=== PATIENT | female | born 1930 | race Caucasian/White ===

== ENCOUNTER 2017-04-26 15:32 | Inpatient (IN) | payer OTHER, BC ==
[~2017-04-26] VITALS: Ht 157.5 cm; Wt 58.6 kg
[~2017-04-26 15:32] MED LIST: ALBUAER2 INH; ATOR-24 PO; FLNIN NAE; FRRS300 PO; GLIP-199 PO; LATA0.5S OPR; LSX20 PO; METF500T5 PO; MULTCHW PO; OMEP20CA9 OR; REPA0.5T PO; TMPOPS15 OPB
[2017-04-26] MEDS ORDERED: MoRPHine SULFATE 10 MG/ML CARP/VIAL IV STA ×2 (15:44→16:28)
[2017-04-26 16:46] LABS: CALCIUM 9.2 mg/dl (8.5-10.1); CREATININE 0.68 mg/dl (0.60-1.20); POTASSIUM 4.3 mmol/L (3.5-5.1)
[2017-04-26 16:48] LABS: PROTHROMBIN TIME (PATIENT) 10.8 SECONDS (9.0-12.0)
--- NOTE | 2017-04-26 16:59 | DIAGNOSTIC IMAGING REPORT ---
LEFT PELVIS/UNILATERAL HIP 2-3VIEWS CLINICAL HISTORY: Left hip pain. Fall. COMPARISON STUDY: None. FINDINGS: Comminuted intertrochanteric fracture within the left hip. This demonstrates mild superior displacement. No dislocation. The visualized pelvic bones are intact. The bones are osteopenic. The lesser trochanter fragment is distracted by approximately 9 mm. There is also 1.2 cm of posterior displacement. IMPRESSION: Comminuted and displaced left hip intertrochanteric fracture. Electronically signed by: Juventino Kuo M.D. 04/26/2017 4:58 PM Dictated Date/Time: 04/26/2017 4:57 PM
--- NOTE | 2017-04-26 17:03 | DIAGNOSTIC IMAGING REPORT ---
CHEST 1 VW FRONT-NOT PORTABLE HISTORY: Left hip fracture. Preop. Fall. COMPARISON: Chest 08/22/2016. FINDINGS: The heart is stable in size. Diffuse interstitial thickening is again noted. This has progressed. Left suprahilar density is likely due to the overlapping first rib. Small right peripheral midlung zone density and right apical pleural thickening have progressed. This is likely chronic. Old, healed left-sided rib fractures. There may be trace bilateral pleural effusions. IMPRESSION: 1. Diffuse interstitial thickening which has progressed. There are trace bilateral pleural effusions. This may represent mild congestive change on the background of chronic interstitial lung disease. 2. Left suprahilar density is likely due to the overlapping first rib. 3. Small focal density within the periphery of the right midlung zone may represent an area of scarring or pleural fluid. Electronically signed by: Juventino Kuo M.D. 04/26/2017 5:01 PM Dictated Date/Time: 04/26/2017 4:58 PM
[2017-04-26 17:04] LABS: HEMATOCRIT 40.1 % (37-47); MEAN CELL VOLUME 94.1 fL (80-100); MEAN CORPUSCULAR HEMOGLOBIN 32.6 pg (25-34); MEAN CORPUSCULAR HGB CONC 34.7 g/dl (32-36); RED BLOOD COUNT 4.26 M/uL (4.2-5.4)
[2017-04-26 17:07] LABS: BASO % 0.1 %; BASO ABS # 0.01 K/uL (0-0.2); COMPLETE YES; EOS % 1.6 %; IG% 0.4 %; LYMPH % 17.7 %; MEAN PLATELET VOLUME 10.8 fL (7.4-10.4); MONO % 6.7 %; NEUT % 73.5 %; PLATELET COUNT 108 K/uL (130-400); PLT ESTIMATE DECREASED
--- NOTE | 2017-04-26 17:09 | DIAGNOSTIC IMAGING REPORT ---
HEAD CT NONCONTRAST CT DOSE: 1577.26 mGycm HISTORY: fall hit head TECHNIQUE: Multiaxial CT images of the head were performed without the use of intravenous contrast. Automated exposure control was utilized for this study. A dose lowering technique was utilized adhering to the principles of ALARA. Comparison: None. Findings: The paranasal sinuses and mastoid air cells are clear. The calvarium and skull base are intact. There is no mass, hematoma, midline shift, acute infarct. White matter hypodensity is nonspecific but suggestive of microvascular ischemic change. The ventricles and sulci demonstrate mild age-related involutional changes. Impression: No acute intracranial abnormality. Electronically signed by: Juventino Kuo M.D. 04/26/2017 5:08 PM Dictated Date/Time: 04/26/2017 5:01 PM
[2017-04-26 17:37] LABS: URINE APPEARANCE CLEAR (CLEAR); URINE BILIRUBIN NEG (NEG); URINE COLOR YELLOW; URINE EPITHELIAL CELL AUTO >30 /lpf (0-5); URINE NITRITE POS (NEG); URINE PH 8.5 (4.5-7.5); URINE SPECIFIC GRAVITY 1.014 (1.000-1.030); UROBILINOGEN NEG (NEG); ZZURINE CULT IF INDIC CATH YES
[2017-04-26] MEDS ORDERED: ACET-749 PO (17:37)
[2017-04-26] MEDS ORDERED: LCTX PO (17:37)
[2017-04-26] MEDS ORDERED: REPA1TAB42 PO (17:37)
--- NOTE | 2017-04-26 17:44 | EMERGENCY ROOM VISIT NOTE ---
History Report prepared by Patrick: Stephen Victoria Under the Supervision of: Dr. Raymond Owens D.O. First contact with patient: 15:37 Stated Complaint: HIP PAIN History of Present Illness The patient is a 86 year old female who presents to the Emergency Room with complaints of constant left hip pain s/p fall occurring just prior to arrival. She states that she fell while cooking. She states that she was reaching for her cupboard when she lost her balance and fell onto her left side. The patient denies any chest pain, back pain, or abdominal pain. She did not hit her head or lose consciousness during the fall. Her pain is worsened with movement. Patient has had surgery by [facility] before. Patient has no other complaints. Source of History: patient Onset: Just prior to arrival Position: pelvis (left hip) Timing: constant Modifying Factors (Worsening): movement Associated Symptoms: No LOC, No chest pain, No abdominal pain, No back pain Review of Systems See HPI for pertinent positives & negatives. A total of 10 systems reviewed and were otherwise negative. Past Medical & Surgical Medical Problems: (1) Anemia (2) Dyslipidemia (3) GERD (gastroesophageal reflux disease) (4) History of pneumonia (5) HTN (hypertension) (6) Pneumonia Surgical Problems: (1) H/O carotid endarterectomy (2) H/O cataract removal with insertion of prosthetic lens (3) History of hysterectomy Family History No pertinent family history stated. Social History Smoking Status: Former Smoker Drug Use: none Marital Status: Occupation Status: retired Current/Historical Medications Scheduled Albuterol (Ventolin), 2 PUFFS INH PRN Atorvastatin (Lipitor), 40 MG PO DAILY Ferrous Sulfate (Ferrous Sulfate), 325 MG PO BIDM Furosemide (Furosemide), 20 MG PO QAM Glipizide (Glipizide Er), 20 MG PO DAILY Lactobacillus Acidophilus (Lactinex), 1 TAB PO AC Latanoprost (Xalatan 0.005% Oph Cherrie), 1 DROPS OPR HS Metformin Hcl Er (Glucophage Er), 1,000 MG PO DAILY Multiple Vitamins W/ Minerals (Centrum Silver), 1 TAB PO DAILY Omeprazole (Prilosec), 20 MG OR DAILYBB Repaglinide (Prandin), 1 MG PO AC Scheduled PRN Acetaminophen/Codeine (Tylenol W/Codeine #3), 1 TAB PO Q8 PRN for Pain Allergies Coded Allergies: Aspirin (Verified Allergy, Unknown, THROAT SWELLS, 04/26/17) Physical Exam Vital Signs Date Time Temp Pulse Resp B/P (MAP) Pulse Ox O2 Delivery O2 Flow Rate FiO2 04/26/17 17:16 87 17 176/80 95 Nasal Cannula 2.0 04/26/17 16:04 92 04/26/17 15:42 93 18 188/100 91 Room Air Physical Exam GENERAL: sitting up in bed, holding left hip, moderate distress. HEAD: Normocephalic, atraumatic. EYE EXAM: normal conjunctiva OROPHARYNX: no exudate, no erythema, lips, buccal mucosa, and tongue normal and mucous membranes are moist NECK: supple, no nuchal rigidity, no adenopathy, non-tender LUNGS: Clear to auscultation. Normal chest wall mechanics HEART: no murmurs, S1 normal and S2 normal ABDOMEN: abdomen soft, non-tender, normo-active bowel sounds, no masses, no rebound or guarding. BACK: Back is symmetrical on inspection and there is no deformity, no midline tenderness, no CVA tenderness. SKIN: no rashes and no bruising UPPER EXTREMITIES: upper extremities are grossly normal. LOWER EXTREMITIES: LLE shortened and internally rotated with significant pain at the left hip. DP is 2 out of 4. Gross sensation intact. Able to wiggle toes. Full active and passive range of motion of left hip, knee, ankle. NEURO EXAM: Normal sensorium, cranial nerves II-XII grossly intact, normal speech, no gross weakness of arms Medical Decision & Procedures ER Provider Diagnostic Interpretation: Radiology results as stated below per my review and the radiologist's interpretation: LEFT PELVIS/UNILATERAL HIP 2-3VIEWS FINDINGS: Comminuted intertrochanteric fracture within the left hip. This demonstrates mild superior displacement. No dislocation. The visualized pelvic bones are intact. The bones are osteopenic. The lesser trochanter fragment is distracted by approximately 9 mm. There is also 1.2 cm of posterior displacement. IMPRESSION: Comminuted and displaced left hip intertrochanteric fracture. Electronically signed by: Juventino Kuo M.D. CHEST 1 VW FRONT-NOT PORTABLE FINDINGS: The heart is stable in size. Diffuse interstitial thickening is again noted. This has progressed. Left suprahilar density is likely due to the overlapping first rib. Small right peripheral midlung zone density and right apical pleural thickening have progressed. This is likely chronic. Old, healed left-sided rib fractures. There may be trace bilateral pleural effusions. IMPRESSION: 1. Diffuse interstitial thickening which has progressed. There are trace bilateral pleural effusions. This may represent mild congestive change on the background of chronic interstitial lung disease. 2. Left suprahilar density is likely due to the overlapping first rib. 3. Small focal density within the periphery of the right midlung zone may represent an area of scarring or pleural fluid. Electronically signed by: Juventino Kuo M.D. HEAD CT NONCONTRAST Findings: The paranasal sinuses and mastoid air cells are clear. The calvarium and skull base are intact. There is no mass, hematoma, midline shift, acute infarct. White matter hypodensity is nonspecific but suggestive of microvascular ischemic change. The ventricles and sulci demonstrate mild age-related involutional changes. Impression: No acute intracranial abnormality. Electronically signed by: Juventino Kuo M.D. Laboratory Results 04/26/17 16:11 Red Blood Count 4.26, Mean Corpuscular Volume 94.1, Mean Corpuscular Hemoglobin 32.6, Mean Corpuscular Hemoglobin Concent 34.7, Mean Platelet Volume 10.8, Neutrophils (%) (Auto) 73.5, Lymphocytes (%) (Auto) 17.7, Monocytes (%) (Auto) 6.7, Eosinophils (%) (Auto) 1.6, Basophils (%) (Auto) 0.1, Neutrophils # (Auto) 5.80, Lymphocytes # (Auto) 1.40, Monocytes # (Auto) 0.53, Eosinophils # (Auto) 0.13, Basophils # (Auto) 0.01 04/26/17 16:11 Test 04/26/17 16:11 04/26/17 17:15 White Blood Count 7.90 K/uL (4.8-10.8) Red Blood Count 4.26 M/uL (4.2-5.4) Hemoglobin 13.9 g/dL (12.0-16.0) Hematocrit 40.1 % (37-47) Mean Corpuscular Volume 94.1 fL (80-100) Mean Corpuscular Hemoglobin 32.6 pg (25-34) Mean Corpuscular Hemoglobin Concent 34.7 g/dl (32-36) Platelet Count 108 K/uL (130-400) Mean Platelet Volume 10.8 fL (7.4-10.4) Neutrophils (%) (Auto) 73.5 % Lymphocytes (%) (Auto) 17.7 % Monocytes (%) (Auto) 6.7 % Eosinophils (%) (Auto) 1.6 % Basophils (%) (Auto) 0.1 % Neutrophils # (Auto) 5.80 K/uL (1.4-6.5) Lymphocytes # (Auto) 1.40 K/uL (1.2-3.4) Monocytes # (Auto) 0.53 K/uL (0.11-0.59) Eosinophils # (Auto) 0.13 K/uL (0-0.5) Basophils # (Auto) 0.01 K/uL (0-0.2) RDW Standard Deviation 42.6 fL (36.4-46.3) RDW Coefficient of Variation 12.5 % (11.5-14.5) Immature Granulocyte % (Auto) 0.4 % Immature Granulocyte # (Auto) 0.03 K/uL (0.00-0.02) Platelet Estimate DECREASED Prothrombin Time 10.8 SECONDS (9.0-12.0) Prothromb Time International Ratio 1.0 (0.9-1.1) Activated Partial Thromboplast Time 26.2 SECONDS (21.0-31.0) Partial Thromboplastin Ratio 1.0 Anion Gap 8.0 mmol/L (3-11) Est Creatinine Clear Calc Drug Dose 47.9 ml/min Estimated GFR () 92.4 Estimated GFR (Non- 79.8 BUN/Creatinine Ratio 10.0 (10-20) Calcium Level 9.2 mg/dl (8.5-10.1) Laboratory results per my review. Medications Administered Medications (Trade) Dose Ordered Sig/Bill Route Start Time Stop Time Status Last Admin Dose Admin Morphine Sulfate (MoRPHine SULFATE INJ) 6 mg NOW STAT IV 04/26/17 15:44 04/26/17 15:46 DC 04/26/17 15:54 6 MG Morphine Sulfate (MoRPHine SULFATE INJ) 6 mg NOW STAT IV 04/26/17 16:28 04/26/17 16:29 DC 04/26/17 16:28 6 MG ECG Indication: other (fall) Rate (beats per minute): 87 Rhythm: sinus rhythm Findings: Q waves (Septal), no ectopy, other (Normal axis) ED Course ED COURSE: Vital signs were reviewed and showed hypertension and borderline tachycardia. The patients medical record was reviewed The above diagnostic studies were performed and reviewed. ED treatments and interventions as stated above. 1539: The patient was evaluated in room A11A. A complete history and physical examination was performed. 1544: Ordered Morphine Sulfate 6 mg IV. 1628: I reassessed the patient. She is still having pain. Ordered Morphine Sulfate 6 mg IV. 1702: Upon reevaluation, the patient is resting. I discussed my findings with the patient and she understands and agrees with the treatment plan. Based on the patients age, coexisting illnesses, exam and lab findings the decision to treat as an inpatient was made. The patient remained stable while under my care. The patient will be evaluated for further management. Medical Decision Differential diagnoses include major intracranial, cervical, spinal, thoracic, abdominal, pelvic and neurologic injury. Fracture, contusion, sprain, strain, laceration, abrasions included as well. Patient is an 86-year-old female who presents the ER status post mechanical fall. Patient notes she fell onto her left hip. She did not lose consciousness. No other complaints. She has an obvious deformity. X-ray shows an intratrochanteric fracture. She was neurologically intact. Discussed with Dr. Coombs from [facility] [place]. Updated the patient at bedside. CT head was negative. Chest x-ray shows congestive changes. CBC along with BMP was unremarkable. Discussed case with internal medicine inpatient will be admitted. Medication Reconcilliation Current Medication List: was personally reviewed by me Blood Pressure Screening Patient's blood pressure: Elevated blood pressure Blood pressure disposition: Referred to PCP Consults Time Called: 1655 Consulting Physician: Monae Hudson Returned Call: 1701 I reviewed the patient's case with Monae Sánchez. Florence will evaluate the patient for further management. Additional Consults: Consulted Physician: Dr. Coombs Additional Comments: NPO for OR tomorrw Impression Primary Impression: Hip fracture Additional Impression: Fall Scribe Attestation The scribe's documentation has been prepared under my direction and personally reviewed by me in its entirety. I confirm that the note above accurately reflects all work, treatment, procedures, and medical decision making performed by me. Departure Information Dispostion Being Evaluated By Hospitalist Referrals Royal Noel D.O. (PCP) Problem Qualifiers Primary Impression: Hip fracture Encounter type: initial encounter Fracture type: closed Laterality: left Qualified Codes: S72.002A - Fracture of unspecified part of neck of left femur , initial encounter for closed fracture Additional Impression: Fall Encounter type: initial encounter Qualified Codes: W19.XXXA - Unspecified fall, initial encounter
[2017-04-26] MEDS ORDERED: BISACODYL 10 MG SUPP PR PRN (18:00)
[2017-04-26] MEDS ORDERED: NALOXONE HCL 0.4 MG/1 ML VIAL/CARP IV PRN (18:00)
[2017-04-26] MEDS ORDERED: ONDANSETRON INJ 2 MG/ML 2 ML VIAL IV PRN (18:00)
[2017-04-26] MEDS ORDERED: SOD PHOSPHATE/SOD BIPHOSPHATE ENEMA 132 ML BTL PR PRN (18:00)
[2017-04-26] MEDS ORDERED: POLYETHYLENE (MIRALAX) 17 GM PACK PO PRN (18:00)
[2017-04-26] MEDS ORDERED: MAGNESIUM HYDROXIDE SUSP 30 ML UDC PO PRN (18:00)
[2017-04-26] MEDS ORDERED: HYDROmorphone INJ 0.5 MG/0.5 ML SYR IV PRN (18:00)
[2017-04-26] MEDS ORDERED: MoRPHine SULFATE 2 MG/ML CARP IV PRN (18:00)
[2017-04-26] MEDS ORDERED: MoRPHine SULFATE 4 MG/ML 1 ML CARP\\VIAL IV PRN (18:00)
[2017-04-26 18:14] LABS: MANUAL MICROSCOPIC REQUIRED? NO; REVIEW REQ? NO; SULFASALICYLIC ACID POS (NEG)
[2017-04-26] MEDS ORDERED: HydrALAZINE 10 MG TAB PO PRN (18:15)
[2017-04-26] MEDS ORDERED: GLUCOSE 10 TABS/TUBE PO PRN (18:15)
[2017-04-26] MEDS ORDERED: GLUCAGON FOR INJ 1 MG VIAL SQ PRN (18:15)
[2017-04-26] MEDS ORDERED: GLUCOSE 40% GEL 15 GM TUBE PO PRN (18:15)
[2017-04-26] MEDS ORDERED: DEXTROSE 50% 50 ML SYR IV PRN (18:15)
[2017-04-26] MEDS ORDERED: ALBUTEROL HFA 8 GM INHALER INH PRN (18:15)
--- NOTE | 2017-04-26 18:16 | History and Physical ---
History & Physical Date & Time of Service: Apr 26, 2017 at 18:10 Chief Complaint: Hip Pain Primary Care Physician: Royal Noel D.O. History of Present Illness Source: patient, family This is an 86yo female with a PMH of HTN, DM II, MARIE and osteoarthritis who presents with L hip pain after a fall this afternoon. Patient reached for a cupboard while cooking, lost her balance and fell onto her left side. Denies hitting her head or LOC. Some neighbors overheard the fall and called EMS. Patient initially had severe pain but after being given morphine in the ED, pain is a 2/10 on the pain scale. Denies any lightheadedness, confusion, CP, SOB , nausea/vomiting, numbness or tingling in lower extremities. Patient lives alone and can perform ADLs independently. Ambulates with a cane and walker. Past Medical/Surgical History Medical Problems: (1) Dyslipidemia Status: Chronic (2) GERD (gastroesophageal reflux disease) Status: Chronic (3) HTN (hypertension) Status: Chronic Surgical Problems: (1) H/O carotid endarterectomy Status: Resolved (2) H/O cataract removal with insertion of prosthetic lens Status: Resolved (3) History of hysterectomy Status: Resolved Social History Smoking Status: Former Smoker Drug Use: none Marital Status: Housing status: lives alone Occupational Status: retired Multi-Drug Resistant Organisms History of MDRO: No Allergies Coded Allergies: Aspirin (Unverified Allergy, Severe, THROAT SWELLS, 04/26/17) Home Medications Scheduled Albuterol (Ventolin), 2 PUFFS INH PRN Atorvastatin (Lipitor), 40 MG PO DAILY Ferrous Sulfate (Ferrous Sulfate), 325 MG PO BIDM Furosemide (Furosemide), 20 MG PO QAM Glipizide (Glipizide Er), 20 MG PO DAILY Lactobacillus Acidophilus (Lactinex), 1 TAB PO AC Latanoprost (Xalatan 0.005% Oph Cherrie), 1 DROPS OPR HS Metformin Hcl Er (Glucophage Er), 1,000 MG PO DAILY Multiple Vitamins W/ Minerals (Centrum Silver), 1 TAB PO DAILY Omeprazole (Prilosec), 20 MG OR DAILYBB Repaglinide (Prandin), 1 MG PO AC Scheduled PRN Acetaminophen/Codeine (Tylenol W/Codeine #3), 1 TAB PO Q8 PRN for Pain Review of Systems Ten systems reviewed and negative except as noted in the HPI. Physical Exam Vital Signs Date Time Temp Pulse Resp B/P (MAP) Pulse Ox O2 Delivery O2 Flow Rate FiO2 04/26/17 17:16 87 17 176/80 95 Nasal Cannula 2.0 04/26/17 16:04 92 04/26/17 15:42 93 18 188/100 91 Room Air General Appearance: WD/WN, no apparent distress Head: normocephalic Eyes: normal inspection, sclerae normal ENT: hearing grossly normal Neck: supple, thyroid normal, trachea midline Respiratory/Chest: chest non-tender, lungs clear, normal breath sounds, no respiratory distress, no accessory muscle use Cardiovascular: regular rate, rhythm, no murmur Abdomen/GI: normal bowel sounds, non tender, soft, no organomegaly Extremities/Musculoskelatal: normal inspection, no calf tenderness, normal capillary refill, no pedal edema, + pertinent finding (L hip with TTP. No visible swelling or ecchymosis. ) Neurologic/Psych: no motor/sensory deficits, alert, normal mood/affect, oriented x 3 Skin: normal color, warm/dry, no rash Diagnostics Laboratory Results Results Past 24 Hours Test 04/26/17 16:11 04/26/17 17:15 Range/Units White Blood Count 7.90 4.8-10.8 K/uL Red Blood Count 4.26 4.2-5.4 M/uL Hemoglobin 13.9 12.0-16.0 g/dL Hematocrit 40.1 37-47 % Mean Corpuscular Volume 94.1 80-100 fL Mean Corpuscular Hemoglobin 32.6 25-34 pg Mean Corpuscular Hemoglobin Concent 34.7 32-36 g/dl Platelet Count 108 130-400 K/uL Mean Platelet Volume 10.8 7.4-10.4 fL Neutrophils (%) (Auto) 73.5 % Lymphocytes (%) (Auto) 17.7 % Monocytes (%) (Auto) 6.7 % Eosinophils (%) (Auto) 1.6 % Basophils (%) (Auto) 0.1 % Neutrophils # (Auto) 5.80 1.4-6.5 K/uL Lymphocytes # (Auto) 1.40 1.2-3.4 K/uL Monocytes # (Auto) 0.53 0.11-0.59 K/uL Eosinophils # (Auto) 0.13 0-0.5 K/uL Basophils # (Auto) 0.01 0-0.2 K/uL RDW Standard Deviation 42.6 36.4-46.3 fL RDW Coefficient of Variation 12.5 11.5-14.5 % Immature Granulocyte % (Auto) 0.4 % Immature Granulocyte # (Auto) 0.03 0.00-0.02 K/uL Platelet Estimate DECREASED Prothrombin Time 10.8 9.0-12.0 SECONDS Prothromb Time International Ratio 1.0 0.9-1.1 Activated Partial Thromboplast Time 26.2 21.0-31.0 SECONDS Partial Thromboplastin Ratio 1.0 Sodium Level 133 136-145 mmol/L Potassium Level 4.3 3.5-5.1 mmol/L Chloride Level 100 98-107 mmol/L Carbon Dioxide Level 25 21-32 mmol/L Anion Gap 8.0 3-11 mmol/L Blood Urea Nitrogen 7 7-18 mg/dl Creatinine 0.68 0.60-1.20 mg/dl Est Creatinine Clear Calc Drug Dose 47.9 ml/min Estimated GFR () 92.4 Estimated GFR (Non- 79.8 BUN/Creatinine Ratio 10.0 10-20 Random Glucose 258 70-99 mg/dl Calcium Level 9.2 8.5-10.1 mg/dl Diagnostic Radiology Hip/pelvis XR: IMPRESSION: Comminuted and displaced left hip intertrochanteric fracture. Head CT: No acute intracranial abnormality. CXR: 1. Diffuse interstitial thickening which has progressed. There are trace bilateral pleural effusions. This may represent mild congestive change on the background of chronic interstitial lung disease. 2. Left suprahilar density is likely due to the overlapping first rib. 3. Small focal density within the periphery of the right midlung zone may represent an area of scarring or pleural fluid. EKG Normal sinus rhythm H/o Septal infarct with Q waves present (cited on or before 26-APR-2017) Impression Assessment and Plan This is an 86yo female with a PMH of HTN, DM II, MARIE and osteoarthritis who presents with L hip pain after a fall this afternoon and was found to have a Left hip fracture. Left hip fracture: -Hip/Pelvis XR with comminuted and displaced L hip intertrochanteric fracture -H/o osteoporosis -Per hip fracture protocol, consulted ortho and anesthesiology -Started cefazolin pre-operatively -NPO except meds -O2 per protocol -Bedrest with SCDs -Neurovascular checks Q4 -IVFs DM II: -Hgb a1c of 8.7 on 12/20 -Ordered repeat hgb a1c -Held home meds -SSI while in-patient -BG checks ACHS HTN: -Held Lasix pre-operatively -Ordered hydralazine 10mg Q6 PRN for SBP >160 -Monitor closely GERD: -Stable -Continue PPI Iron Deficiency Anemia: -Hgb of 13.9 on admission -Held home iron supplement to avoid constipation DVT Ppx: SCDs Code status: FULL PCP: Sadie Dispo: SW consulted to help with discharge placement. Patient is >80yo and lives alone; will need rehab following surgery. Addendum Attending Physician Dr. Martinez I have seen and examined this patient with ALINE Lopez and agree with her assessment and plan. This is a 86 year female with PMH HTN and anemia found to have a comminuted and displaced left hip intertrochanteric fracture (The lesser trochanter fragment is distracted by approximately 9 mm. There is also 1.2 cm of posterior displacement ) secondary to trauma due to fall without loss of consciousness with Head CT negative for acute injury. On physical exam she is alert and speaking in full sentences and pain controlled. Will continue pain medication regimen as Dilaudid. Bowel regimen while on narcotics to avoid ileus. Will hold home dosed diuretics as she is euvolemic. May restart diuretics post op. Hydralazine for blood pressure control. Sliding scale insulin for diabetes control. Awaiting for orthopedic intervention. Level of Care Med/Surg Resuscitation Status FULL RESUSCITATION VTE Prophylaxis VTE Risk Assessment Done? Y/N: Yes Risk Level: Moderate Given or contraindicated: SCD's Social Service Consult >80 yr.& Lives Alone
[2017-04-26] MEDS: HYDROmorphone INJ 0.5 MG/0.5 ML SYR IV PRN ×3 (19:50→22:31)
[2017-04-26 19:55] VITALS: O2SAT 95; Ht 157.5 cm; Wt 58.6 kg
[2017-04-26] MEDS: SODIUM CHLORIDE 0.9% 1000ML 1,000 ML IV SCH (20:35)
[2017-04-26] MEDS ORDERED: INSULIN ASPART 100 UNITS/ML 3 ML PEN SC SCH (21:00)
[2017-04-26] MEDS: LATANOPROST 0.005% OP SOLN 2.5 ML BTL OPR SCH (22:07)
[2017-04-26] MEDS: DOCUSATE SODIUM/SENNA 50/8.6MG TAB PO SCH (22:08)
[2017-04-27] VITALS (8 sets, daily range): BP systolic 102–151; BP diastolic 54–77; PULSE 90–99; TEMP 36.6–37.4; O2SAT 94–99
[2017-04-27] MEDS: HYDROmorphone INJ 0.5 MG/0.5 ML SYR IV PRN ×10 (00:39→20:10)
[2017-04-27] MEDS ORDERED: NURSING VERBAL MED ORDER ONE ×2 (02:30→18:45)
[2017-04-27] MEDS: PANTOprazole SOD 40 MG TAB PO SCH (05:29)
[2017-04-27] MEDS ORDERED: INSULIN GLARGINE SOLOSTAR 100 UNITS/ML 3 ML PEN SC ONE (05:39)
[2017-04-27] MEDS ORDERED: INSULIN ASPART 100 UNITS/ML 3 ML PEN SC ONE (05:39)
[2017-04-27] MEDS ORDERED: CEFAZOLIN 2000 MG/60 ML D5W 60 ML IV SCH (06:00)
[2017-04-27] MEDS ORDERED: INSULIN ASPART 100 UNITS/ML 3 ML PEN SC SCH (06:00)
[2017-04-27 07:17] LABS: BASO % 0.2 %; BASO ABS # 0.02 K/uL (0-0.2); COMPLETE YES; EOS % 0.9 %; HEMATOCRIT 34.5 % (37-47); IG% 0.5 %; LYMPH % 9.8 %; LYMPH ABS # 1.27 K/uL (1.2-3.4); MEAN CELL VOLUME 96.1 fL (80-100); MEAN CORPUSCULAR HEMOGLOBIN 31.8 pg (25-34); MEAN PLATELET VOLUME 10.5 fL (7.4-10.4); MONO % 8.2 %; NEUT % 80.4 %; PLATELET COUNT 123 K/uL (130-400); RED BLOOD COUNT 3.59 M/uL (4.2-5.4)
[2017-04-27] MEDS: ATORVASTATIN 40 MG TAB PO SCH (07:25)
[2017-04-27 07:54] LABS: BUN/CREATININE RATIO 16.7 (10-20); CALCIUM 8.3 mg/dl (8.5-10.1); CREATININE 0.96 mg/dl (0.60-1.20); POTASSIUM 4.4 mmol/L (3.5-5.1)
[2017-04-27 08:04] LABS: ALB/GLOB RATIO 0.8 (0.9-2)
[2017-04-27 08:43] LABS: ESTIMATED AVERAGE GLUCOSE 194 mg/dl; HA1C FLAG Normal (Normal)
--- NOTE | 2017-04-27 08:43 | ORTHOPEDIC CONSULTATION REPORT ---
DATE OF CONSULTATION: 04/27/2017 CHIEF COMPLAINT: Left hip fracture. HISTORY OF PRESENT ILLNESS: Mr. Menjivar is an 86-year-old female with a history of hypertension, diabetes who has been admitted for left hip fracture. The patient had a fall yesterday at her home while reaching into an overhead cupboard. She fell directly onto her left side. She denies hitting her head or loss of consciousness. The patient was brought to the Emergency Room with severe pain, but after morphine was more controlled. The patient is currently in her bed. She appears moderately uncomfortable despite just having some Dilaudid according to nursing staff. She has seemed fixated on repositioning. Patient states she normally lives alone and is able to perform most of her ADL's. She does use a cane to ambulate. She denies any prior hip pain. PAST MEDICAL HISTORY: Dyslipidemia, GERD, hypertension, type 2 diabetes. PAST SURGICAL HISTORY: Carotid endarterectomy, cataract extraction and hysterectomy. SOCIAL HISTORY: The patient is a former smoker. She lives alone and is retired. ALLERGIES: ASPIRIN ANAPHYLAXIS. ALLERGIES: Please see the chart. REVIEW OF SYSTEMS: Ten systems reviewed, otherwise negative. PHYSICAL EXAMINATION: VITAL SIGNS: Height 62 inches, weight 129 pounds. BMI is 23. GENERAL: This is a well-developed, well-nourished female who is alert and oriented x3. Mood and affect are appropriate. She does appear to have moderate discomfort at this time. HEENT: Normocephalic, atraumatic. Mucous membranes are moist and intact. NECK: Supple without lymphadenopathy. HEART: Regular rate and rhythm without murmurs, rubs or gallops. LUNGS: Clear to auscultation without wheezes or rhonchi. ABDOMEN: Soft and nontender. Bowel sounds are equal and active. EXTREMITIES: No ecchymosis, redness or warmth. She is holding her left hip in a bit of flexion and external rotation. Calf is soft and nontender. She does have some tenderness at the thigh area. She is neurovascularly intact. Toes are mobile. She has no obvious ecchymosis at this time. X-RAY EXAMINATION: AP views of the pelvis show a comminuted left intertrochanteric fracture with mild lesser trochanter. IMPRESSION: Left hip fracture. PLAN: The patient has been admitted for pain control and surgical fixation of her left hip. The patient alert and oriented but we may need to consider having the family involved for her consent. We will discuss the case with Dr. Coombs and again likely plan for surgical intervention, possibly later today. I will order 5 pounds of Etienne's traction for her now in hopes of helping her pain control.
--- NOTE | 2017-04-27 09:19 | Progress Note ---
Medicine Progress Note Date & Time of Visit: Apr 27, 2017 at 08:45 . Subjective Hip pain improved after 2 doses of hydromorphone. Anxious, upset. No chest pain. No cough or SOB. No nausea or vomiting. Has Soto cath. . Objective Last 8 Hrs Date Time Temp Pulse Resp B/P (MAP) Pulse Ox O2 Delivery O2 Flow Rate FiO2 04/27/17 07:41 36.6 99 18 145/72 (96) 95 Room Air Physical Exam: General- upset, but no acute distress Neck- no JVD Lungs- clear Heart- RRR, III/ systolic murmur at base Abdomen- + BS, soft, nontender Extremities- LLE in traction; SCD's applied to RLE Neuro- alert . Laboratory Results: Last 24 Hours Test 04/26/17 16:11 04/26/17 17:15 04/26/17 21:10 04/27/17 05:27 White Blood Count 7.90 K/uL Red Blood Count 4.26 M/uL Hemoglobin 13.9 g/dL Hematocrit 40.1 % Mean Corpuscular Volume 94.1 fL Mean Corpuscular Hemoglobin 32.6 pg Mean Corpuscular Hemoglobin Concent 34.7 g/dl Platelet Count 108 K/uL Mean Platelet Volume 10.8 fL Neutrophils (%) (Auto) 73.5 % Lymphocytes (%) (Auto) 17.7 % Monocytes (%) (Auto) 6.7 % Eosinophils (%) (Auto) 1.6 % Basophils (%) (Auto) 0.1 % Neutrophils # (Auto) 5.80 K/uL Lymphocytes # (Auto) 1.40 K/uL Monocytes # (Auto) 0.53 K/uL Eosinophils # (Auto) 0.13 K/uL Basophils # (Auto) 0.01 K/uL RDW Standard Deviation 42.6 fL RDW Coefficient of Variation 12.5 % Immature Granulocyte % (Auto) 0.4 % Immature Granulocyte # (Auto) 0.03 K/uL Platelet Estimate DECREASED Prothrombin Time 10.8 SECONDS Prothromb Time International Ratio 1.0 Activated Partial Thromboplast Time 26.2 SECONDS Partial Thromboplastin Ratio 1.0 Sodium Level 133 mmol/L Potassium Level 4.3 mmol/L Chloride Level 100 mmol/L Carbon Dioxide Level 25 mmol/L Anion Gap 8.0 mmol/L Blood Urea Nitrogen 7 mg/dl Creatinine 0.68 mg/dl Est Creatinine Clear Calc Drug Dose 47.9 ml/min Estimated GFR () 92.4 Estimated GFR (Non- 79.8 BUN/Creatinine Ratio 10.0 Random Glucose 258 mg/dl Calcium Level 9.2 mg/dl Urine Color YELLOW Urine Appearance CLEAR Urine pH 8.5 Urine Specific [place] 1.014 Urine Protein 2+ Urine Glucose (UA) 1+ Urine Ketones NEG Urine Occult Blood NEG Urine Nitrite POS Urine Bilirubin NEG Urine Urobilinogen NEG Urine Leukocyte Esterase TRACE Urine WBC (Auto) 10-30 /hpf Urine RBC (Auto) 0-4 /hpf Urine Hyaline Casts (Auto) 1-5 /lpf Urine Epithelial Cells (Auto) >30 /lpf Urine Bacteria (Auto) 2+ Bedside Glucose 230 mg/dl 260 mg/dl Test 04/27/17 07:02 White Blood Count 13.00 K/uL Red Blood Count 3.59 M/uL Hemoglobin 11.4 g/dL Hematocrit 34.5 % Mean Corpuscular Volume 96.1 fL Mean Corpuscular Hemoglobin 31.8 pg Mean Corpuscular Hemoglobin Concent 33.0 g/dl Platelet Count 123 K/uL Mean Platelet Volume 10.5 fL Neutrophils (%) (Auto) 80.4 % Lymphocytes (%) (Auto) 9.8 % Monocytes (%) (Auto) 8.2 % Eosinophils (%) (Auto) 0.9 % Basophils (%) (Auto) 0.2 % Neutrophils # (Auto) 10.46 K/uL Lymphocytes # (Auto) 1.27 K/uL Monocytes # (Auto) 1.07 K/uL Eosinophils # (Auto) 0.12 K/uL Basophils # (Auto) 0.02 K/uL RDW Standard Deviation 45.4 fL RDW Coefficient of Variation 13.0 % Immature Granulocyte % (Auto) 0.5 % Immature Granulocyte # (Auto) 0.06 K/uL Sodium Level 133 mmol/L Potassium Level 4.4 mmol/L Chloride Level 98 mmol/L Carbon Dioxide Level 28 mmol/L Anion Gap 7.0 mmol/L Blood Urea Nitrogen 16 mg/dl Creatinine 0.96 mg/dl Est Creatinine Clear Calc Drug Dose 33.9 ml/min Estimated GFR () 62.5 Estimated GFR (Non- 53.9 BUN/Creatinine Ratio 16.7 Random Glucose 253 mg/dl Estimated Average Glucose 194 mg/dl Hemoglobin A1c 8.4 % Calcium Level 8.3 mg/dl Total Bilirubin 1.1 mg/dl Aspartate Amino Transf (AST/SGOT) 26 U/L Alanine Aminotransferase (ALT/SGPT) 20 U/L Alkaline Phosphatase 107 U/L Total Protein 5.9 gm/dl Albumin 2.6 gm/dl Globulin 3.3 gm/dl Albumin/Globulin Ratio 0.8 Date/Time Source Procedure Growth Status 04/26/17 17:15 Urine,Catheterized Urine Culture - Preliminary Gram Negative Bacilli Resulted Assessment & Plan LEFT HIP FRACTURE Mechanical fall with left comminuted intertrochanteric fracture. Orthopedics consulted. Management per Geriatric Hip Fracture Protocol. Anticipated repair today. AORTIC MURMUR Exam reveals III/ systolic murmur. Echo 08/20/16 demonstrated aortic sclerosis without significant stenosis. HYPERTENSION BP 145/72 this morning. Follow. GERD Continue PPI. DM TYPE 2 Hgb A1C 8.4. FBS = 253. NPO for surgery. Hold oral agents during hospital stay. Lantus / Novolog per protocol. VTE PROPHYLAXIS SCD's preop. Postop management per Ortho. DISPOSITION Anticipated need for skilled care. Case Management consulted. Internal Medicine follow-up with Dr. Noel. . Discharge planning: care home facility Consultants: Orthopedics . Current Inpatient Medications: Current Inpatient Medications Medications (Trade) Dose Ordered Sig/Bill Route Start Time Stop Time Status Last Admin Dose Admin Cefazolin Sodium 60 ml @ 120 mls/hr PREOP IV 04/27/17 06:00 04/27/17 18:00 Ondansetron HCl (Zofran Inj) 4 mg Q6H PRN IV 04/26/17 18:00 05/26/17 17:59 Naloxone HCl (Narcan Inj) 0.1 mg PRN PRN IV 04/26/17 18:00 05/26/17 17:59 Senna/Docusate Sodium (Senokot S Tab) 2 tab HS PO 04/26/17 21:00 05/26/17 20:59 04/26/17 22:08 2 TAB Polyethylene (Miralax Powder Packet) 17 gm DAILY PRN PO 04/26/17 18:00 05/26/17 17:59 Magnesium Hydroxide (Milk Of Magnesia Susp) 30 ml DAILY PRN PO 04/26/17 18:00 05/26/17 17:59 Bisacodyl (Dulcolax Supp) 10 mg DAILY PRN AR 04/26/17 18:00 05/26/17 17:59 Sodium Biphosphate/ Sodium Phosphate (Fleet Enema) 132 ml PRN PRN AR 04/26/17 18:00 Hydromorphone HCl (Dilaudid Inj) 0.25 mg Q20M PRN IV 04/26/17 18:00 05/10/17 17:59 Hydromorphone HCl (Dilaudid Inj) 0.5 mg Q20M PRN IV 04/26/17 18:00 05/10/17 17:59 04/27/17 08:05 0.5 MG Albuterol (Ventolin Hfa Inhaler) 2 puffs Q4H PRN INH 04/26/17 18:15 05/26/17 18:14 Atorvastatin Calcium (Lipitor Tab) 40 mg DAILY PO 04/27/17 09:00 05/27/17 08:59 04/27/17 07:25 40 MG Latanoprost (Xalatan Oph Soln) 1 drops HS OPR 04/26/17 21:00 05/26/17 20:59 04/26/17 22:07 1 DROPS Pantoprazole Sodium (Protonix Tab) 40 mg DAILYBB PO 04/27/17 06:00 05/27/17 06:59 04/27/17 05:29 40 MG Hydralazine HCl (Apresoline Tab) 10 mg Q6 PRN PO 04/26/17 18:15 05/26/17 18:14 Glucose (Glucose 40% Gel) 15-30 GRAMS 15 GRAMS... UD PRN PO 04/26/17 18:15 05/26/17 18:14 Glucose (Glucose Chew Tab) 4-8 Tablets 4 Tabl... UD PRN PO 04/26/17 18:15 05/26/17 18:14 Dextrose (Dextrose 50% 50ML Syringe) 25-50ML OF 50% DW IV FOR... UD PRN IV 04/26/17 18:15 05/26/17 18:14 Glucagon (Glucagon Inj) 1 mg UD PRN SQ 04/26/17 18:15 05/26/17 18:14 Sodium Chloride 1,000 ml @ 50 mls/hr Q20H IV 04/26/17 18:45 05/26/17 18:44 04/26/17 20:35 50 MLS/HR Insulin Aspart (novoLOG ASPART) SLIDING SCALE If C... Q6 SC 04/27/17 06:00 04/27/17 11:59 04/27/17 05:40 2 UNITS Insulin Aspart (novoLOG ASPART) SLIDING SCALE If C... Q6H MI 04/27/17 12:00 05/27/17 05:59 Insulin Glargine (Lantus Solostar Pen) 10 units DAILY SC 04/28/17 09:00 05/28/17 08:59
[2017-04-27] MEDS ORDERED: HYDROmorphone INJ 0.5 MG/0.5 ML SYR IV PRN (09:50)
[2017-04-27] MEDS: INSULIN ASPART 100 UNITS/ML 3 ML PEN SC SCH ×3 (12:35→20:11)
--- NOTE | 2017-04-27 13:10 | Anesthesiology Progress Note ---
Anesthesia Progress Note Date of Service Apr 27, 2017. Progress Notes This is an 86 y/o w female w/ left intertrochanteric Fx for an ORIF of the same.PMHx is sig. for HTN,Hyperlipidemia,PVD, s/p Right CEA,CHF 08/2016,GERD,s/ p bleeding gastric ulcer 1994,osteoarthritis,IDDM,Anemia and glaucoma.Discussed anesthesia w/daughter(POA),risks vs benefits,all questions answered. ASA 4
[2017-04-27] MEDS ORDERED: BACITRACIN 50000 UNIT VIAL ONE (14:33)
[2017-04-27] MEDS: SODIUM CHLORIDE 0.9% 1000ML 1,000 ML IV SCH ×2 (14:45→18:44)
[2017-04-27] MEDS ORDERED: ATROPINE SULFATE 0.1 MG/ML 5ML SYR IV PRN ×2 (14:45→19:30)
[2017-04-27] MEDS ORDERED: ONDANSETRON INJ 2 MG/ML 2 ML VIAL IV PRN ×2 (14:45→19:30)
[2017-04-27] MEDS ORDERED: HYDROmorphone INJ 1 MG/ML SYR IV PRN (14:45)
[2017-04-27] MEDS ORDERED: EpHEDrine SULFATE INJ 50 MG/ML AMP IV PRN ×2 (14:45→19:30)
[2017-04-27] MEDS ORDERED: BUPIVACAINE 0.5 % 5 MG/1 ML PF 10ML VIAL ONE (14:51)
[2017-04-27] MEDS ORDERED: FENTANYL CITRATE INJ 50 MCG/1 ML 2 ML VIAL ONE ×2 (14:58→17:24)
[2017-04-27] MEDS ORDERED: MIDAZOLAM HCL 1 MG/ML 2ML VIAL ONE (14:58)
--- NOTE | 2017-04-27 15:00 | History & Physical Bridge Note ---
H&P Re-Evaluation Bridge Note: I have examined the patient, reviewed the History & Physical and in the interval since the performance of the History & Physical I have noted the following changes of clinical significance: No changes noted
[2017-04-27] MEDS ORDERED: PROPOFOL IV EMULSION 10 MG/ML 20 ML VIAL IV ONE (17:01)
[2017-04-27] MEDS ORDERED: ROCURONIUM BROMIDE 10 MG/ML 5 ML VIAL IV ONE (17:01)
[2017-04-27] MEDS ORDERED: GLYCOPYRROLATE INJ 0.2 MG/ML VIAL ONE (17:17)
[2017-04-27] MEDS ORDERED: NEOSTIGMINE METHYLSULFATE 5 MG/5 ML SYR ONE (17:17)
[2017-04-27] MEDS: FENTANYL CITRATE INJ 50 MCG/1 ML 2 ML VIAL IV PRN ×2 (18:00→18:07)
--- NOTE | 2017-04-27 18:41 | DIAGNOSTIC IMAGING REPORT ---
INTRAOPERATIVE RADIOGRAPHS CLINICAL HISTORY: Open reduction and internal fixation of the left hip. Fluoroscopy time: 161 seconds. FINDINGS: 4 spot fluoroscopic views of the left femur are correlated with hip radiographs dated 04/26/2017. Intertrochanteric and intramedullary nails have been placed, transfixing an intertrochanteric fracture. There is mild persistent medial distraction of the lesser trochanter. The orthopedic hardware appears intact. A single cortical lag screw transfixes the intramedullary nail. IMPRESSION: Intraoperative images from open reduction and internal fixation of the left hip as above. Electronically signed by: Rajiv Connor M.D. 04/27/2017 6:40 PM Dictated Date/Time: 04/27/2017 6:38 PM
--- NOTE | 2017-04-27 19:26 | Anesthesiology Progress Note ---
Anesthesia Post Op Note Date & Time Apr 27, 2017 at 19:26 Vital Signs Pain Intensity: 9.0 Vital Signs Past 12 Hours Date Time Temp Pulse Resp B/P (MAP) Pulse Ox O2 Delivery O2 Flow Rate FiO2 04/27/17 19:08 36.8 91 16 135/55 (81) 98 Nasal Cannula 2.0 04/27/17 18:30 99 Nasal Cannula 3.0 04/27/17 18:30 99 Nasal Cannula 3.0 04/27/17 18:10 36.7 97 16 159/68 100 Nasal Cannula 3 04/27/17 18:00 104 15 159/71 100 Nasal Cannula 3 04/27/17 17:50 106 14 167/55 100 Oxymask 10 04/27/17 17:40 114 16 146/103 100 Oxymask 10 04/27/17 17:34 36.8 119 18 140/115 100 Oxymask 10 04/27/17 08:00 Room Air 04/27/17 07:41 36.6 99 18 145/72 (96) 95 Room Air Notes Mental Status: alert / awake / arousable, participated in evaluation Pt Amnestic to Procedure: Yes Nausea / Vomiting: adequately controlled Pain: adequately controlled Airway Patency, RR, SpO2: stable & adequate BP & HR: stable & adequate Hydration State: stable & adequate Anesthetic Complications: no major complications apparent
[2017-04-27] MEDS ORDERED: HYDROmorphone INJ 2 MG/ML SYR/VIAL IV PRN (19:30)
[2017-04-27] MEDS ORDERED: PHENYLEPHRINE 100MCG/ML 5ML SYR IV PRN (19:30)
[2017-04-27] MEDS: LATANOPROST 0.005% OP SOLN 2.5 ML BTL OPR SCH (20:10)
[2017-04-27] MEDS: DOCUSATE SODIUM/SENNA 50/8.6MG TAB PO SCH (20:11)
[2017-04-27] MEDS: INSULIN GLARGINE SOLOSTAR 100 UNITS/ML 3 ML PEN SC SCH (20:15)
--- NOTE | 2017-04-27 20:42 | Progress Note ---
Medicine Progress Note Date & Time of Visit: Apr 27, 2017 at ~ 19:30 . Subjective Postop check. ORIF left hip fracture performed under [facility]. Spinal attempted, but unsuccessful. Experiencing hoarseness postop. Otherwise OK. No CP, cough, SOB, nausea, vomiting. . Objective Last 8 Hrs Date Time Temp Pulse Resp B/P (MAP) Pulse Ox O2 Delivery O2 Flow Rate FiO2 04/27/17 19:30 36.9 95 16 151/77 (101) 96 Nasal Cannula 2.0 04/27/17 19:08 36.8 91 16 135/55 (81) 98 Nasal Cannula 2.0 04/27/17 18:30 99 Nasal Cannula 3.0 04/27/17 18:30 99 Nasal Cannula 3.0 04/27/17 18:10 36.7 97 16 159/68 100 Nasal Cannula 3 04/27/17 18:00 104 15 159/71 100 Nasal Cannula 3 04/27/17 17:50 106 14 167/55 100 Oxymask 10 04/27/17 17:40 114 16 146/103 100 Oxymask 10 04/27/17 17:34 36.8 119 18 140/115 100 Oxymask 10 Physical Exam: General- no acute distress ENT- hoarse, no stridor Neck- no JVD Lungs- clear Heart- RRR, III/ systolic murmur at base Abdomen- + BS, soft, nontender Extremities- SCD's applied Neuro- alert . Laboratory Results: Last 24 Hours Test 04/26/17 21:10 04/27/17 05:27 04/27/17 07:02 04/27/17 12:03 Bedside Glucose 230 mg/dl 260 mg/dl 185 mg/dl White Blood Count 13.00 K/uL Red Blood Count 3.59 M/uL Hemoglobin 11.4 g/dL Hematocrit 34.5 % Mean Corpuscular Volume 96.1 fL Mean Corpuscular Hemoglobin 31.8 pg Mean Corpuscular Hemoglobin Concent 33.0 g/dl Platelet Count 123 K/uL Mean Platelet Volume 10.5 fL Neutrophils (%) (Auto) 80.4 % Lymphocytes (%) (Auto) 9.8 % Monocytes (%) (Auto) 8.2 % Eosinophils (%) (Auto) 0.9 % Basophils (%) (Auto) 0.2 % Neutrophils # (Auto) 10.46 K/uL Lymphocytes # (Auto) 1.27 K/uL Monocytes # (Auto) 1.07 K/uL Eosinophils # (Auto) 0.12 K/uL Basophils # (Auto) 0.02 K/uL RDW Standard Deviation 45.4 fL RDW Coefficient of Variation 13.0 % Immature Granulocyte % (Auto) 0.5 % Immature Granulocyte # (Auto) 0.06 K/uL Sodium Level 133 mmol/L Potassium Level 4.4 mmol/L Chloride Level 98 mmol/L Carbon Dioxide Level 28 mmol/L Anion Gap 7.0 mmol/L Blood Urea Nitrogen 16 mg/dl Creatinine 0.96 mg/dl Est Creatinine Clear Calc Drug Dose 33.9 ml/min Estimated GFR () 62.5 Estimated GFR (Non- 53.9 BUN/Creatinine Ratio 16.7 Random Glucose 253 mg/dl Estimated Average Glucose 194 mg/dl Hemoglobin A1c 8.4 % Calcium Level 8.3 mg/dl Total Bilirubin 1.1 mg/dl Aspartate Amino Transf (AST/SGOT) 26 U/L Alanine Aminotransferase (ALT/SGPT) 20 U/L Alkaline Phosphatase 107 U/L Total Protein 5.9 gm/dl Albumin 2.6 gm/dl Globulin 3.3 gm/dl Albumin/Globulin Ratio 0.8 Test 04/27/17 17:40 04/27/17 20:07 Bedside Glucose 149 mg/dl 164 mg/dl Assessment & Plan LEFT HIP FRACTURE Mechanical fall with left comminuted intertrochanteric fracture. Orthopedics consulted. Management per Geriatric Hip Fracture Protocol. Anticipated repair today. AORTIC MURMUR Exam reveals III/ systolic murmur. Echo 08/20/16 demonstrated aortic sclerosis without significant stenosis. HYPERTENSION BP 138/55 postop. Follow. GERD Continue PPI. DM TYPE 2 Hgb A1C 8.4. FBS = 253 this morning, 149 this evening. Hold oral agents during hospital stay. Lantus / Novolog per protocol. VTE PROPHYLAXIS SCD's. SQ enoxaparin ordered for tomorrow; will hold in light of difficult / unsuccessful spinal anesthesia attempt. Start SQ heparin on second hospital day if no concerns. DISPOSITION Anticipated need for skilled care. Case Management consulted. Internal Medicine follow-up with Dr. Noel. Family visiting and given update. . Discharge planning: alf facility Consultants: Orthopedics . Current Inpatient Medications: Current Inpatient Medications Medications (Trade) Dose Ordered Sig/Bill Route Start Time Stop Time Status Last Admin Dose Admin Ondansetron HCl (Zofran Inj) 4 mg Q6H PRN IV 04/26/17 18:00 05/26/17 17:59 Naloxone HCl (Narcan Inj) 0.1 mg PRN PRN IV 04/26/17 18:00 05/26/17 17:59 Senna/Docusate Sodium (Senokot S Tab) 2 tab HS PO 04/26/17 21:00 05/26/17 20:59 04/27/17 20:11 2 TAB Polyethylene (Miralax Powder Packet) 17 gm DAILY PRN PO 04/26/17 18:00 05/26/17 17:59 Magnesium Hydroxide (Milk Of Magnesia Susp) 30 ml DAILY PRN PO 04/26/17 18:00 05/26/17 17:59 Bisacodyl (Dulcolax Supp) 10 mg DAILY PRN OK 04/26/17 18:00 05/26/17 17:59 Sodium Biphosphate/ Sodium Phosphate (Fleet Enema) 132 ml PRN PRN OK 04/26/17 18:00 Albuterol (Ventolin Hfa Inhaler) 2 puffs Q4H PRN INH 04/26/17 18:15 05/26/17 18:14 Atorvastatin Calcium (Lipitor Tab) 40 mg DAILY PO 04/27/17 09:00 05/27/17 08:59 04/27/17 07:25 40 MG Latanoprost (Xalatan Oph Soln) 1 drops HS OPR 04/26/17 21:00 05/26/17 20:59 04/27/17 20:10 1 DROPS Pantoprazole Sodium (Protonix Tab) 40 mg DAILYBB PO 04/27/17 06:00 05/27/17 06:59 04/27/17 05:29 40 MG Hydralazine HCl (Apresoline Tab) 10 mg Q6 PRN PO 04/26/17 18:15 05/26/17 18:14 Glucose (Glucose 40% Gel) 15-30 GRAMS 15 GRAMS... UD PRN PO 04/26/17 18:15 05/26/17 18:14 Glucose (Glucose Chew Tab) 4-8 Tablets 4 Tabl... UD PRN PO 04/26/17 18:15 05/26/17 18:14 Dextrose (Dextrose 50% 50ML Syringe) 25-50ML OF 50% DW IV FOR... UD PRN IV 04/26/17 18:15 05/26/17 18:14 Glucagon (Glucagon Inj) 1 mg UD PRN SQ 04/26/17 18:15 05/26/17 18:14 Sodium Chloride 1,000 ml @ 50 mls/hr Q20H IV 04/26/17 18:45 05/26/17 18:44 04/27/17 18:44 50 MLS/HR Hydromorphone HCl (Dilaudid Inj) 0.25 mg Q30M PRN IV 04/27/17 09:50 05/10/17 17:59 Hydromorphone HCl (Dilaudid Inj) 0.5 mg Q1H PRN IV 04/27/17 10:20 05/10/17 17:59 04/27/17 20:10 0.5 MG Insulin Glargine (Lantus Solostar Pen) Sliding scale: BSG < ... BID SC 04/27/17 21:00 05/28/17 08:59 04/27/17 20:15 6 UNITS Cefazolin Sodium 1000 mg/Dextrose 55 ml @ 100 mls/hr Q8H IV 04/27/17 22:00 04/28/17 06:32 Insulin Aspart (novoLOG ASPART) SLIDING SCALE If C... ACHS SC 04/27/17 21:00 05/27/17 20:59 Hydromorphone HCl (Dilaudid Inj) 0.5 mg Q5M PRN IV 04/27/17 19:30 04/28/17 00:30 Ondansetron HCl (Zofran Inj) 4 mg ONE PRN IV 04/27/17 19:30 04/28/17 00:30 Ephedrine Sulfate (EpHEDrine SULFATE INJ) 5 mg Q5M PRN IV 04/27/17 19:30 04/28/17 00:30 Atropine Sulfate (Atropine Sulfate 0.1MG/Ml Inj) 0.5 mg Q1M PRN IV 04/27/17 19:30 04/28/17 00:30 Phenylephrine HCl (Abdullahi-Synephrine 500MCG/5ML Syr) 100 mcg Q5M PRN IV 04/27/17 19:30 04/28/17 00:30
[2017-04-27] MEDS: CEFAZOLIN IV 1,000 MG in DEXTROSE 5% 50ML 50 ML IV SCH (21:21)
--- NOTE | 2017-04-27 22:40 | [facility] Post Operative Brief Note ---
Immediate Operative Summary Operative Date Apr 27, 2017. Pre-Operative Diagnosis left hip intertrochanteric fracture Post-Operative Diagnosis left hip intertrochanteric fracture Procedure(s) Performed Left Troch Nail,open reduction Surgeon Dr. James Sanders Plasma Cutting Machine Operator Surgeon(s) Virgilio Ring PAC Estimated Blood Loss 100ML Findings unstable 3-4 part intertroch fx with displaced neck fracture anterior Specimens none per surgeon Drains none Anesthesia atempted spinal followed by general Complication(s) None Disposition Recovery Room / PACU
--- NOTE | 2017-04-28 01:45 | OPERATIVE REPORT ---
DATE OF OPERATION: 04/27/2017 INDICATION FOR PROCEDURE: The patient is an 86-year-old female who fell and fractured her left hip. She had a twisting-type injury. She fractured because of the fall, not the twist. Her left hip x-rays demonstrated an intertrochanteric hip fracture. She has a good spike on the medial neck inferiorly and the neck fragment was displaced anterior with respect to the shaft of the head angulated posteriorly. She also has some displacement of the lesser trochanteric fracture and greater trochanteric fracture with 3- to 4-part fracture identified. The cortices distally look to be fairly thick, but proximally she appears to be fairly osteopenic. She has severe scoliosis. PREOPERATIVE DIAGNOSIS: Unstable left intertrochanteric hip fracture. POSTOPERATIVE DIAGNOSIS: Same. PROCEDURE: Left hip open reduction internal fixation using a trochanteric femoral nail, requiring open reduction. SURGEON: Dr. Sanders. SNUFF GRINDER AND SCREENER: Virgilio Ring PA-C. ANESTHESIA: Attempted spinal anesthesia, followed by general anesthetic. OPERATIVE PROCEDURE: The patient was taken to the operating room. They attempted to get a spinal anesthetic with sedation, but they were unsuccessful and placed her under general anesthetic. She was transferred to the fracture table and brought down to a perineal post. Right leg was placed in a well-leg holding device, her left leg was placed into boot traction. Her left foot and ankle were well padded within a boot, and with the hip in abduction and some external rotation, we placed longitudinal traction on the fracture, then internally rotated it and then adducted the hip and assessed post-reduction x-rays. She was out to length. The AP view looked good, and on lateral view, the neck was displaced a good 3 cm from the shaft with the head angulated posteriorly and the neck fragment displaced anteriorly. We attempted by closed means to reduce this and it was not reducible by closed means. We maximized the position by rotating the leg appropriately and placed good traction on the extremity and then prepped and draped the left hip in the usual sterile fashion using ChloraPrep. The lateral incision was then made over the greater trochanter, we extended a little more distal over the trochanter so we could access the fracture site and manipulate the fracture fragments. The fluoroscopic guidance was used throughout the procedure as needed. I was able to initially get a Hill elevator over the anterior neck and replace that with a blunt Hohmann retractor and then place the Hill retractor posterior to the shaft and lifted the Hill anteriorly to raise the distal fragment anteriorly and then push down on the blunt Hohmann retractor to realign the fracture. While we were holding that in position, the guide pin for the [employer]ynthes mid length trochanteric nail was used under fluoroscopic guidance to place it into the tip of the trochanter and then we used the reamer which was appearing that it was going to ream too much laterally, so we abandoned that, went with an awl and then placed in the final component which was the 11 mm x 130-degree angle titanium cannulated trochanteric femoral nail, 235 mm in length from [employer]. This was advanced on the insertion device to the appropriate depth, and while we were holding in reduction, we went ahead and placed the threaded guide pin up into the neck and head, centrally placed on lateral and slightly inferior from central on the AP view which was satisfactory. We measured the blade at 90 mm, it was appropriate blade length. We just drilled the outer cortex because the bone was soft and then advanced the spiral blade to the shelly. We locked the screw proximally and then let traction off and then used the compression device to compress the fracture. Then, we locked the shelly distally with a 42 mm x 5 mm locking screw. Then, after copious irrigation, we repaired the fascia with [id number] #1 Vicryl sutures, the subcutaneous tissues with large #2 Vicryl, followed by 2-0 Vicryl, followed by [place]ville in the skin. Sterile dressings were applied. Blood loss estimated at 100 mL. Virgilio Ring PA-C, was my first aid instructor. He functioned as first aid instructor throughout the procedure. He assisted in the open reduction and the instrumentation during placement of the shelly, and he did perform the fascial, subcutaneous and skin closure, and will participate in some of the postoperative care of the patient. I attest to the content of the Intraoperative Record and any orders documented therein. Any exceptions are noted below. RUPINDER
[2017-04-28] MEDS: HYDROmorphone INJ 0.5 MG/0.5 ML SYR IV PRN ×4 (03:11→16:36)
[2017-04-28 03:20] VITALS: BP 114/53; PULSE 100; TEMP 37.4; O2SAT 96
[2017-04-28 03:27] VITALS: TEMP 37
[2017-04-28] MEDS: CEFAZOLIN IV 1,000 MG in DEXTROSE 5% 50ML 50 ML IV SCH (05:37)
[2017-04-28] MEDS: PANTOprazole SOD 40 MG TAB PO SCH (05:38)
[2017-04-28] MEDS ORDERED: SODIUM CHLORIDE 0.9% 250ML 150 ML IV STA (06:25)
[2017-04-28] MEDS ORDERED: SODIUM CHLORIDE 0.9% 1000ML 1,000 ML IV SCH (06:30)
--- NOTE | 2017-04-28 06:41 | Progress Note ---
Progress Note Date of Service Apr 28, 2017. Progress Note USED [employer] ATTENDING NOTE : had low urine out put over night 150 ml only reviewed I's /O's ( + positive balance of ~2000ml ) pt been getting NSS @ 50 ml/hr ( got 2 L ) pt evaluated at bedside sleeping -wakes up easily , no SOB Lungs: no rales noted ordered for NSS 150 ml bolus maintenance IVF D/jemma if no improvement of urine out put may need to consider Lasix AM PRP pending will relay to AM provider
[2017-04-28 07:30] VITALS: BP 137/60; PULSE 96; TEMP 36.8; O2SAT 98
[2017-04-28 08:23] LABS: BUN/CREATININE RATIO 33.9 (10-20); CALCIUM 7.9 mg/dl (8.5-10.1); CREATININE 0.66 mg/dl (0.60-1.20); POTASSIUM 4.3 mmol/L (3.5-5.1)
[2017-04-28 08:34] LABS: HEMATOCRIT 23.6 % (37-47)
[2017-04-28] MEDS: ATORVASTATIN 40 MG TAB PO SCH (08:37)
--- NOTE | 2017-04-28 08:37 | Orthopedic Progress Note ---
Orthopedic Progress Note Date of Service Apr 28, 2017. Subjective Post OP Day: 1 Reports: feeling well, pain controlled w PO medications, Denies: complaints, chest pain, SOB, nausea / vomiting, light headedness, calf pain Additional Notes: AM CBC pending Objective calves soft nontender, N/V intact, capillary refill less than 2 sec., dressing C /D/I, toes mobile Date Time Temp Pulse Resp B/P (MAP) Pulse Ox O2 Delivery O2 Flow Rate FiO2 04/28/17 07:46 Nasal Cannula 1.0 04/28/17 07:30 36.8 96 16 137/60 (85) 98 Nasal Cannula 1.0 04/28/17 03:27 37.0 04/28/17 03:20 37.4 100 14 114/53 (73) 96 Nasal Cannula 1.0 04/28/17 00:00 Nasal Cannula 1.0 04/27/17 22:45 37.1 97 18 130/54 (79) 94 Nasal Cannula 1.0 04/27/17 21:52 37.1 95 16 143/67 (92) 96 Nasal Cannula 2.0 04/27/17 20:40 37.1 90 16 131/67 (88) 98 Nasal Cannula 2.0 04/27/17 19:30 36.9 95 16 151/77 (101) 96 Nasal Cannula 2.0 04/27/17 19:08 36.8 91 16 135/55 (81) 98 Nasal Cannula 2.0 04/27/17 18:30 99 Nasal Cannula 3.0 04/27/17 18:30 99 Nasal Cannula 3.0 04/27/17 18:10 36.7 97 16 159/68 100 Nasal Cannula 3 04/27/17 18:00 104 15 159/71 100 Nasal Cannula 3 04/27/17 17:50 106 14 167/55 100 Oxymask 10 04/27/17 17:40 114 16 146/103 100 Oxymask 10 04/27/17 17:34 36.8 119 18 140/115 100 Oxymask 10 Laboratory Results 24 Hours: Test 04/28/17 07:08 Hematocrit 23.6 % Hemoglobin 8.0 g/dL Assessment & Plan Assessment: POD #1, ORIF Left hip troch nail Plan: PT/ OT- TTWB DVT proph- medicine to start heparin POD #2 D/C planning- Rehab As per primary team
[2017-04-28] MEDS: INSULIN ASPART 100 UNITS/ML 3 ML PEN SC SCH ×4 (08:39→21:00)
[2017-04-28] MEDS: INSULIN GLARGINE SOLOSTAR 100 UNITS/ML 3 ML PEN SC SCH ×2 (08:39→21:47)
[2017-04-28] MEDS ORDERED: ENOXAPARIN 40 MG/0.4 ML SYR SQ SCH (09:00)
[2017-04-28] MEDS ORDERED: INSULIN GLARGINE SOLOSTAR 100 UNITS/ML 3 ML PEN SC SCH (09:00)
--- NOTE | 2017-04-28 09:05 | Anesthesiology Progress Note ---
Anesthesia Post Op Note Date & Time Apr 28, 2017 at 09:04 Vital Signs Pain Intensity: 8.0 Vital Signs Past 12 Hours Date Time Temp Pulse Resp B/P (MAP) Pulse Ox O2 Delivery O2 Flow Rate FiO2 04/28/17 07:46 Nasal Cannula 1.0 04/28/17 07:30 36.8 96 16 137/60 (85) 98 Nasal Cannula 1.0 04/28/17 03:27 37.0 04/28/17 03:20 37.4 100 14 114/53 (73) 96 Nasal Cannula 1.0 04/28/17 00:00 Nasal Cannula 1.0 04/27/17 22:45 37.1 97 18 130/54 (79) 94 Nasal Cannula 1.0 04/27/17 21:52 37.1 95 16 143/67 (92) 96 Nasal Cannula 2.0 Notes Mental Status: alert / awake / arousable Pt Amnestic to Procedure: Yes Nausea / Vomiting: adequately controlled Pain: see Notes Airway Patency, RR, SpO2: stable & adequate BP & HR: stable & adequate Hydration State: stable & adequate pt c/o pain; pt does not remember when she last had her pain medication;
[2017-04-28] MEDS: CEFTRIAXONE SOD INJ 1 GM in DEXTROSE 5% ADD-VANTAGE 50ML 50 ML IV SCH (10:26)
[2017-04-28] MEDS ORDERED: TRAMADOL HCL 50 MG TAB PO PRN (10:45)
[2017-04-28] MEDS ORDERED: OXYCODONE HCL IR 5 MG TAB (IMMEDIATE RELEASE) ONE (11:18)
[2017-04-28] MEDS ORDERED: FUROSEMIDE INJ 20 MG in SYRINGE 0 ML IV SCH (11:30)
[2017-04-28] MEDS ORDERED: OXYCODONE HCL IR 5 MG TAB (IMMEDIATE RELEASE) PO SCH (11:30)
[2017-04-28] MEDS: ACETAMINOPHEN 500 MG TAB PO SCH ×2 (14:35→21:44)
[2017-04-28 15:48] VITALS: BP 111/63; PULSE 86; TEMP 36.8; O2SAT 97
[2017-04-28] MEDS: OXYCODONE HCL IR 5 MG TAB (IMMEDIATE RELEASE) PO PRN (19:43)
--- NOTE | 2017-04-28 21:34 | Progress Note ---
Medicine Progress Note Date & Time of Visit: Apr 28, 2017 at 09:20 . Subjective No chest pain. Hoarseness improved. No cough or dyspnea. No nausea or vomiting. No BM postop. Still has Soto cath. Having postop pain. Anxious. . Objective Last 8 Hrs Date Time Temp Pulse Resp B/P (MAP) Pulse Ox O2 Delivery O2 Flow Rate FiO2 04/28/17 15:48 36.8 86 16 111/63 (79) 97 Nasal Cannula 1.0 Physical Exam: General- no acute distress Neck- no JVD Lungs- few bibasilar rales Heart- RRR, III/ systolic murmur at base Abdomen- + BS, soft, nontender Extremities- SCD's applied Neuro- alert . Laboratory Results: Last 24 Hours Test 04/28/17 07:08 04/28/17 07:59 04/28/17 12:51 04/28/17 17:16 Hemoglobin 8.0 g/dL Hematocrit 23.6 % Sodium Level 133 mmol/L Potassium Level 4.3 mmol/L Chloride Level 100 mmol/L Carbon Dioxide Level 24 mmol/L Anion Gap 9.0 mmol/L Blood Urea Nitrogen 22 mg/dl Creatinine 0.66 mg/dl Est Creatinine Clear Calc Drug Dose 49.3 ml/min Estimated GFR () 93.4 Estimated GFR (Non- 80.6 BUN/Creatinine Ratio 33.9 Random Glucose 227 mg/dl Calcium Level 7.9 mg/dl Bedside Glucose 250 mg/dl 254 mg/dl 173 mg/dl Test 04/28/17 20:47 Bedside Glucose 150 mg/dl Assessment & Plan LEFT HIP FRACTURE Mechanical fall with left comminuted intertrochanteric fracture. Orthopedics consulted. ORIF with left trochanteric nail performed by Dr. Sanders 04/27/17. Management per Geriatric Hip Fracture Protocol. Titrate analgesics. PT / OT. ANEMIA Hgb 13.9 --> 8.0. Acute blood loss anemia secondary to hip fracture. No need for transfusion at this time. Follow. AORTIC MURMUR Has III/ systolic murmur. Echo 08/20/16 demonstrated aortic sclerosis without significant stenosis. GERD Continue PPI. DM TYPE 2 Hgb A1C 8.4. Hold oral agents during hospital stay. FBS = 250 this morning. Lantus / Novolog per protocol. UTI (present on admission) Admission UA showed WBC's and bacteria. Urine culture grew Citrobacter freundii complex. IV ceftriaxone. VTE PROPHYLAXIS SCD's. SQ enoxaparin ordered for tomorrow; will hold in light of difficult / unsuccessful spinal anesthesia attempt. Start SQ heparin on second hospital day if no concerns. DISPOSITION Anticipated need for skilled care. Case Management consulted. Internal Medicine follow-up with Dr. Noel. Daughter visiting and given update. . Discharge planning: intermediate facility Consultants: Orthopedics . Current Inpatient Medications: Current Inpatient Medications Medications (Trade) Dose Ordered Sig/Bill Route Start Time Stop Time Status Last Admin Dose Admin Ondansetron HCl (Zofran Inj) 4 mg Q6H PRN IV 04/26/17 18:00 05/26/17 17:59 Naloxone HCl (Narcan Inj) 0.1 mg PRN PRN IV 04/26/17 18:00 05/26/17 17:59 Senna/Docusate Sodium (Senokot S Tab) 2 tab HS PO 04/26/17 21:00 05/26/17 20:59 04/27/17 20:11 2 TAB Polyethylene (Miralax Powder Packet) 17 gm DAILY PRN PO 04/26/17 18:00 05/26/17 17:59 Magnesium Hydroxide (Milk Of Magnesia Susp) 30 ml DAILY PRN PO 04/26/17 18:00 05/26/17 17:59 Bisacodyl (Dulcolax Supp) 10 mg DAILY PRN NE 04/26/17 18:00 05/26/17 17:59 Sodium Biphosphate/ Sodium Phosphate (Fleet Enema) 132 ml PRN PRN NE 04/26/17 18:00 Albuterol (Ventolin Hfa Inhaler) 2 puffs Q4H PRN INH 04/26/17 18:15 05/26/17 18:14 Atorvastatin Calcium (Lipitor Tab) 40 mg DAILY PO 04/27/17 09:00 05/27/17 08:59 04/28/17 08:37 40 MG Latanoprost (Xalatan Oph Soln) 1 drops HS OPR 04/26/17 21:00 05/26/17 20:59 04/27/17 20:10 1 DROPS Pantoprazole Sodium (Protonix Tab) 40 mg DAILYBB PO 04/27/17 06:00 05/27/17 06:59 04/28/17 05:38 40 MG Hydralazine HCl (Apresoline Tab) 10 mg Q6 PRN PO 04/26/17 18:15 05/26/17 18:14 Glucose (Glucose 40% Gel) 15-30 GRAMS 15 GRAMS... UD PRN PO 04/26/17 18:15 05/26/17 18:14 Glucose (Glucose Chew Tab) 4-8 Tablets 4 Tabl... UD PRN PO 04/26/17 18:15 05/26/17 18:14 Dextrose (Dextrose 50% 50ML Syringe) 25-50ML OF 50% DW IV FOR... UD PRN IV 04/26/17 18:15 05/26/17 18:14 Glucagon (Glucagon Inj) 1 mg UD PRN SQ 04/26/17 18:15 05/26/17 18:14 Hydromorphone HCl (Dilaudid Inj) 0.25 mg Q30M PRN IV 04/27/17 09:50 05/10/17 17:59 Hydromorphone HCl (Dilaudid Inj) 0.5 mg Q1H PRN IV 04/27/17 10:20 05/10/17 17:59 04/28/17 16:36 0.5 MG Insulin Glargine (Lantus Solostar Pen) Sliding scale: BSG < ... BID SC 04/27/17 21:00 05/28/17 08:59 04/28/17 08:39 9 UNITS Insulin Aspart (novoLOG ASPART) SLIDING SCALE If C... ACHS SC 04/27/17 21:00 05/27/17 20:59 04/28/17 12:56 3 UNITS Ceftriaxone Sodium 1 gm/ Dextrose 50 ml @ 100 mls/hr Q24H IV 04/28/17 10:00 05/03/17 08:59 04/28/17 10:26 100 MLS/HR Acetaminophen (Tylenol Tab) 1,000 mg TID PO 04/28/17 14:00 05/28/17 13:59 04/28/17 14:35 1,000 MG Tramadol HCl (Ultram Tab) 25 mg Q6H PRN PO 04/28/17 10:45 05/28/17 10:44 Oxycodone HCl (Roxicodone Immediate Rel Tab) 5 mg Q6H PRN PO 04/28/17 10:45 05/12/17 10:44 04/28/17 19:43 5 MG
[2017-04-28] MEDS: DOCUSATE SODIUM/SENNA 50/8.6MG TAB PO SCH (21:44)
[2017-04-28] MEDS: LATANOPROST 0.005% OP SOLN 2.5 ML BTL OPR SCH (21:45)
[2017-04-28 23:56] VITALS: BP 113/53; PULSE 95; TEMP 37; O2SAT 86; O2SAT 95
[2017-04-29] VITALS (9 sets, daily range): BP systolic 104–134; BP diastolic 45–69; PULSE 81–103; TEMP 36.7–37.1; O2SAT 94–100
[2017-04-29] MEDS: HYDROmorphone INJ 0.5 MG/0.5 ML SYR IV PRN ×4 (01:12→18:23)
[2017-04-29] MEDS: PANTOprazole SOD 40 MG TAB PO SCH (05:25)
[2017-04-29 07:17] LABS: BUN/CREATININE RATIO 37.5 (10-20); CALCIUM 8.3 mg/dl (8.5-10.1); CREATININE 0.57 mg/dl (0.60-1.20); POTASSIUM 3.8 mmol/L (3.5-5.1)
[2017-04-29 07:20] LABS: MEAN CELL VOLUME 96.2 fL (80-100); MEAN CORPUSCULAR HEMOGLOBIN 32.7 pg (25-34); MEAN PLATELET VOLUME 9.6 fL (7.4-10.4); PLATELET COUNT 91 K/uL (130-400); RED BLOOD COUNT 2.08 M/uL (4.2-5.4); WHITE BLOOD COUNT 6.41 K/uL (4.8-10.8)
[2017-04-29] MEDS: ATORVASTATIN 40 MG TAB PO SCH (07:34)
[2017-04-29] MEDS: OXYCODONE HCL IR 5 MG TAB (IMMEDIATE RELEASE) PO PRN ×2 (07:34→16:55)
[2017-04-29] MEDS: ACETAMINOPHEN 500 MG TAB PO SCH ×4 (07:35→22:44)
[2017-04-29] MEDS: INSULIN ASPART 100 UNITS/ML 3 ML PEN SC SCH ×4 (08:00→23:59)
--- NOTE | 2017-04-29 08:12 | DIAGNOSTIC IMAGING REPORT ---
CHEST ONE VIEW PORTABLE HISTORY: hypoxia, s/p hip fracture COMPARISON: Chest 04/26/2017. FINDINGS: No pneumothorax. The heart is normal in size. Diffuse interstitial thickening has slightly improved. Suspect trace bilateral pleural effusions. No pneumothorax. Mild biapical pleural thickening remains unchanged. No pneumothorax. Old, healed left-sided rib fracture. IMPRESSION: Diffuse interstitial thickening which is slightly improved. This favors resolving edema. Trace bilateral pleural effusions persist. Electronically signed by: Juventino Kuo M.D. 04/29/2017 8:11 AM Dictated Date/Time: 04/29/2017 8:09 AM
[2017-04-29] MEDS: INSULIN GLARGINE SOLOSTAR 100 UNITS/ML 3 ML PEN SC SCH ×2 (10:10→21:09)
[2017-04-29] MEDS ORDERED: POTASSIUM CHLORIDE 20 MEQ TABCR PO ONE (12:00)
--- NOTE | 2017-04-29 12:24 | Orthopedic Progress Note ---
Orthopedic Progress Note Date of Service Apr 29, 2017. Subjective Post OP Day: 2 Reports: pain controlled w PO medications (States the left hip is sore today.), Denies: chest pain, SOB, nausea / vomiting, calf pain Objective calves soft nontender, N/V intact, capillary refill less than 2 sec., dressing C /D/I (Bloody gauze beneath the op sites--will have dressing changed today.), A& O x3 Date Time Temp Pulse Resp B/P (MAP) Pulse Ox O2 Delivery O2 Flow Rate FiO2 04/29/17 11:45 36.9 81 18 121/63 100 2.0 04/29/17 10:45 36.9 91 18 120/66 98 2.0 04/29/17 10:38 36.8 91 18 104/61 94 2.0 04/29/17 09:45 36.8 103 18 108/45 04/29/17 09:20 37.1 103 20 107/52 04/29/17 07:49 36.7 103 18 132/69 (90) 99 Nasal Cannula 2.0 04/29/17 00:15 Nasal Cannula 2.0 04/28/17 23:56 37.0 95 14 113/53 (73) 86 Room Air 04/28/17 23:56 95 Nasal Cannula 2.0 04/28/17 16:10 Nasal Cannula 1.0 04/28/17 15:48 36.8 86 16 111/63 (79) 97 Nasal Cannula 1.0 Laboratory Results 24 Hours: Test 04/29/17 06:29 Hematocrit 20.0 % Hemoglobin 6.8 g/dL Assessment & Plan Assessment: POD #2, ORIF Left hip troch nail Post operative anemia--transfusion running now. Plan: PT/ OT- TTWB DVT proph- medicine to start heparin POD #2 D/C planning- Rehab vs. SNF As per primary team
[2017-04-29] MEDS ORDERED: FUROSEMIDE INJ 20 MG in SYRINGE 0 ML IV ONE (12:30)
[2017-04-29] MEDS ORDERED: HEPARIN SOD 5000 UNIT/0.5 ML CARP SQ ONE (12:49)
[2017-04-29] MEDS: CEFTRIAXONE SOD INJ 1 GM in DEXTROSE 5% ADD-VANTAGE 50ML 50 ML IV SCH (13:32)
[2017-04-29] MEDS: LATANOPROST 0.005% OP SOLN 2.5 ML BTL OPR SCH (20:31)
[2017-04-29] MEDS: DOCUSATE SODIUM/SENNA 50/8.6MG TAB PO SCH (20:32)
[2017-04-29] MEDS: HEPARIN SOD 5000 UNIT/0.5 ML CARP SQ SCH (20:35)
--- NOTE | 2017-04-29 23:20 | Progress Note ---
Medicine Progress Note Date & Time of Visit: Apr 29, 2017 at 11:40 . Subjective Postop pain not as severe. No fever. No chest pain. No cough or shortness of breath. No nausea or vomiting. Has not moved bowels surgery. Still has Hicks catheter. Daughter visiting. . Objective Last 8 Hrs Date Time Temp Pulse Resp B/P (MAP) Pulse Ox O2 Delivery O2 Flow Rate FiO2 04/29/17 15:29 37.0 87 18 113/64 (80) 99 Nasal Cannula 2.0 Physical Exam: General- no acute distress Neck- sligh JVD Lungs- few bibasilar rales Heart- RRR, III/ systolic murmur at base Abdomen- + BS, soft, nontender Extremities- SCD's applied; swelling of left thigh; hip incision bandaged Neuro- alert . Laboratory Results: Last 24 Hours Test 04/29/17 06:29 04/29/17 07:59 04/29/17 11:58 04/29/17 17:24 White Blood Count 6.41 K/uL Red Blood Count 2.08 M/uL Hemoglobin 6.8 g/dL Hematocrit 20.0 % Mean Corpuscular Volume 96.2 fL Mean Corpuscular Hemoglobin 32.7 pg Mean Corpuscular Hemoglobin Concent 34.0 g/dl RDW Standard Deviation 46.4 fL RDW Coefficient of Variation 13.3 % Platelet Count 91 K/uL Mean Platelet Volume 9.6 fL Sodium Level 133 mmol/L Potassium Level 3.8 mmol/L Chloride Level 98 mmol/L Carbon Dioxide Level 28 mmol/L Anion Gap 7.0 mmol/L Blood Urea Nitrogen 21 mg/dl Creatinine 0.57 mg/dl Est Creatinine Clear Calc Drug Dose 57.1 ml/min Estimated GFR () 98.0 Estimated GFR (Non- 84.5 BUN/Creatinine Ratio 37.5 Random Glucose 134 mg/dl Calcium Level 8.3 mg/dl Bedside Glucose 145 mg/dl 119 mg/dl 176 mg/dl Test 04/29/17 20:54 Bedside Glucose 291 mg/dl Assessment & Plan LEFT HIP FRACTURE Mechanical fall with left comminuted intertrochanteric fracture. Orthopedics consulted. ORIF with left trochanteric nail performed by Dr. Sanders 04/27/17. Management per Geriatric Hip Fracture Protocol. Titrate analgesics. PT / OT. ANEMIA Hgb 13.9 --> 8.0 --> 6.8. Acute blood loss anemia secondary to hip fracture. No apparent GI bleeding. Transfuse 1 unit pRBC's today. Follow. AORTIC MURMUR Has III/ systolic murmur. Echo 08/20/16 demonstrated aortic sclerosis without significant stenosis. GERD Continue PPI. DM TYPE 2 Hgb A1C 8.4. Hold oral agents during hospital stay. FBS = 145 this morning. Lantus / Novolog per protocol. UTI (present on admission) Admission UA showed WBC's and bacteria. Urine culture grew Citrobacter freundii complex. IV ceftriaxone. HICKS CATHETER Try to discontinue tomorrow if possible. VTE PROPHYLAXIS SCD's. SQ enoxaparin initially ordered postoperatively, but held in light of difficult / unsuccessful spinal anesthesia attempt. Start SQ heparin today. DISPOSITION Anticipated need for skilled care. Case Management consulted. Internal Medicine follow-up with Dr. Noel. Daughter visiting and given update. . Discharge planning: residential facility Consultants: Orthopedics . Current Inpatient Medications: Current Inpatient Medications Medications (Trade) Dose Ordered Sig/Bill Route Start Time Stop Time Status Last Admin Dose Admin Ondansetron HCl (Zofran Inj) 4 mg Q6H PRN IV 04/26/17 18:00 05/26/17 17:59 Naloxone HCl (Narcan Inj) 0.1 mg PRN PRN IV 04/26/17 18:00 05/26/17 17:59 Senna/Docusate Sodium (Senokot S Tab) 2 tab HS PO 04/26/17 21:00 05/26/17 20:59 04/29/17 20:32 2 TAB Polyethylene (Miralax Powder Packet) 17 gm DAILY PRN PO 04/26/17 18:00 05/26/17 17:59 Magnesium Hydroxide (Milk Of Magnesia Susp) 30 ml DAILY PRN PO 04/26/17 18:00 05/26/17 17:59 Bisacodyl (Dulcolax Supp) 10 mg DAILY PRN DE 04/26/17 18:00 05/26/17 17:59 Sodium Biphosphate/ Sodium Phosphate (Fleet Enema) 132 ml PRN PRN DE 04/26/17 18:00 Albuterol (Ventolin Hfa Inhaler) 2 puffs Q4H PRN INH 04/26/17 18:15 05/26/17 18:14 Atorvastatin Calcium (Lipitor Tab) 40 mg DAILY PO 04/27/17 09:00 05/27/17 08:59 04/29/17 07:34 40 MG Latanoprost (Xalatan Oph Soln) 1 drops HS OPR 04/26/17 21:00 05/26/17 20:59 04/29/17 20:31 1 DROPS Pantoprazole Sodium (Protonix Tab) 40 mg DAILYBB PO 04/27/17 06:00 05/27/17 06:59 04/29/17 05:25 40 MG Hydralazine HCl (Apresoline Tab) 10 mg Q6 PRN PO 04/26/17 18:15 05/26/17 18:14 Glucose (Glucose 40% Gel) 15-30 GRAMS 15 GRAMS... UD PRN PO 04/26/17 18:15 05/26/17 18:14 Glucose (Glucose Chew Tab) 4-8 Tablets 4 Tabl... UD PRN PO 04/26/17 18:15 05/26/17 18:14 Dextrose (Dextrose 50% 50ML Syringe) 25-50ML OF 50% DW IV FOR... UD PRN IV 04/26/17 18:15 05/26/17 18:14 Glucagon (Glucagon Inj) 1 mg UD PRN SQ 04/26/17 18:15 05/26/17 18:14 Hydromorphone HCl (Dilaudid Inj) 0.25 mg Q30M PRN IV 04/27/17 09:50 05/10/17 17:59 Hydromorphone HCl (Dilaudid Inj) 0.5 mg Q1H PRN IV 04/27/17 10:20 05/10/17 17:59 04/29/17 18:23 0.5 MG Insulin Glargine (Lantus Solostar Pen) Sliding scale: BSG < ... BID SC 04/27/17 21:00 05/28/17 08:59 04/29/17 21:09 12 UNITS Insulin Aspart (novoLOG ASPART) SLIDING SCALE If C... ACHS SC 04/27/17 21:00 05/27/17 20:59 04/29/17 20:29 4 UNITS Ceftriaxone Sodium 1 gm/ Dextrose 50 ml @ 100 mls/hr Q24H IV 04/28/17 10:00 05/03/17 08:59 04/29/17 13:32 100 MLS/HR Acetaminophen (Tylenol Tab) 1,000 mg TID PO 04/28/17 14:00 05/28/17 13:59 04/29/17 14:28 1,000 MG Tramadol HCl (Ultram Tab) 25 mg Q6H PRN PO 04/28/17 10:45 05/28/17 10:44 Oxycodone HCl (Roxicodone Immediate Rel Tab) 5 mg Q6H PRN PO 04/28/17 10:45 05/12/17 10:44 04/29/17 16:55 5 MG Heparin Sodium (Porcine) (Heparin Sq 5000 Unit/0.5ml) 5,000 unit Q12 SQ 04/29/17 21:00 05/29/17 20:59 04/29/17 20:35 5,000 UNIT
[2017-04-30] VITALS (8 sets, daily range): BP systolic 115–135; BP diastolic 54–73; PULSE 72–93; TEMP 36.7–37; O2SAT 91–98
[2017-04-30] MEDS: PANTOprazole SOD 40 MG TAB PO SCH (05:45)
[2017-04-30] MEDS: INSULIN ASPART 100 UNITS/ML 3 ML PEN SC SCH ×4 (08:00→20:53)
[2017-04-30 08:02] LABS: HEMATOCRIT 24.2 % (37-47); MEAN CORPUSCULAR HEMOGLOBIN 31.3 pg (25-34); MEAN CORPUSCULAR HGB CONC 32.6 g/dl (32-36); MEAN PLATELET VOLUME 9.8 fL (7.4-10.4); PLATELET COUNT 102 K/uL (130-400); RED BLOOD COUNT 2.52 M/uL (4.2-5.4); WHITE BLOOD COUNT 5.57 K/uL (4.8-10.8)
[2017-04-30 08:35] LABS: CREATININE 0.48 mg/dl (0.60-1.20)
[2017-04-30] MEDS: ATORVASTATIN 40 MG TAB PO SCH (08:43)
[2017-04-30] MEDS: ACETAMINOPHEN 500 MG TAB PO SCH ×3 (08:44→20:52)
[2017-04-30] MEDS: OXYCODONE HCL IR 5 MG TAB (IMMEDIATE RELEASE) PO PRN ×2 (08:44→12:41)
[2017-04-30] MEDS: INSULIN GLARGINE SOLOSTAR 100 UNITS/ML 3 ML PEN SC SCH ×2 (08:45→20:58)
[2017-04-30] MEDS: HEPARIN SOD 5000 UNIT/0.5 ML CARP SQ SCH ×2 (09:39→21:00)
--- NOTE | 2017-04-30 11:04 | Orthopedic Progress Note ---
Orthopedic Progress Note Date of Service Apr 30, 2017. Subjective Post OP Day: 3 Reports: feeling well, pain controlled w PO medications, Denies: chest pain, SOB , nausea / vomiting, light headedness, calf pain Objective calves soft nontender, N/V intact, capillary refill less than 2 sec., dressing C /D/I, A&O x3 Date Time Temp Pulse Resp B/P (MAP) Pulse Ox O2 Delivery O2 Flow Rate FiO2 04/30/17 07:11 36.9 93 19 135/72 (93) 98 Nasal Cannula 2.0 04/29/17 23:55 Nasal Cannula 2.0 04/29/17 23:50 36.7 92 16 134/63 (86) 100 Nasal Cannula 2.0 04/29/17 18:25 99 Nasal Cannula 2.0 04/29/17 15:29 37.0 87 18 113/64 (80) 99 Nasal Cannula 2.0 04/29/17 11:45 36.9 81 18 121/63 100 2.0 Laboratory Results 24 Hours: Test 04/30/17 07:40 Hematocrit 24.2 % Hemoglobin 7.9 g/dL Assessment & Plan Assessment: POD #3, ORIF Left hip troch nail Post operative anemia- improved Plan: PT/ OT- TTWB DVT proph- medicine to start heparin POD #3 D/C planning- Rehab vs. SNF Discharge recommendations in chart As per primary team Ortho will sign off Inhouse Planning DVT Prophylaxis: TEDs, SCDs, ASA Discharge Planning Discharge Planning: intermediate facility Therapy: Physical Therapy
--- NOTE | 2017-04-30 11:08 | Discharge Instructions ---
Discharge Instructions Date of Service Apr 30, 2017. Admission Reason for Admission: Fracture Of L Hip Discharge Discharge Diagnosis / Problem: s/p left hip ORIF troch naiil Discharge Goals Goal(s): Decrease discomfort, Improve function, Increase independence, Therapeutic intervention Activity Recommendations Activity Limitations: per Instructions/Follow-up section [facility] DISCHARGE INSTRUCTIONS: HIP FRACTURE SELF CARE INSTRUCTIONS: A. You are to ambulate with a walker or crutches for approximately 6 weeks. B. You are WEIGHT BEARING TOLERATE/ PARTIAL WEIGHT BEARING/ TOE TOUCH WEIGHT BEARING on your operative lower extremity for at least 6 weeks. C. Wear low heeled shoes with non-slip soles D. Be sure that your floors are free of things that could trip you throw rugs, electrical cords, and small objects. Avoid wet and waxed floors, especially with crutches/walker/cane. E. Try to walk several times a day with rest periods between. F. You may shower 48 hours after surgery and get the incision area wet, but DO NOT soak or submerge incision area in water. (No baths, swimming pools, hot tubs ) G. You may have a large, band-aid like dressing over your incision (Aquacel). This will remain on your incision for 7 days, and then can be removed. You CAN shower with this on. If incision is leaking through the dressing, please call the office . H. Do NOT apply soap or any ointment/lotions directly over incision. I. You may use ice as needed to operative site. SPECIAL CARE INSTRUCTIONS: VERY IMPORTANT TO READ AND REVIEW A. You may be at risk for phlebitis or blood clots. a. Wear surgical stockings (DELMI hose) for 2 weeks after surgery to improve circulation and reduce swelling. b. Take ASPIRIN 325 mg twice daily/ LOVENOX 40mg SQ daily / LOVENOX 30mg SQ BID for 4 weeks or as directed. This is your blood thinner. c. If you are on Coumadin- you will have daily/weekly blood work to monitor your levels. This will be done by either your family physician/ hosted services analyst (if you are on Coumadin chronically) versus your orthopedic surgeon. Expect a phone call the day of or the day after your blood work is drawn to adjust your dose accordingly. B. There are a few signs you need to watch for after you are home. Call [facility] at [phone] if you experience any of the following: a. If you have a temperature of 101 degrees or higher. b. Sudden increase in pain in your hip not relieved by rest or pain medication. c. Any fluid or drainage from the incision; redness of the incision. d. Shortness of breath or chest pain. B. Please call [facility] at [phone] if you have any questions or concerns about your operation or recovery. C. Call your physician if: a. Temperature is greater than 101 degrees (F). b. Pain is not relieved by prescribed pain medications. c. Increase drainage or redness from incision. d. Unanswered questions or concerns. D. Pain Medication: a. You will be prescribed pain medication upon discharge that should last till your first post-operative appointment. b. If you experience nausea and/or skin rash, discontinue this medication and contact our office for an alternative medication. c. Caution- narcotic pain medication can cause constipation. FOLLOW UP VISIT: Please call [facility] at [phone] to schedule a follow up appointment 10-14 days from the date of your surgery date. . Instructions / Follow-Up Instructions / Follow-Up Follow up in 10-[address] Sanders Current Hospital Diet Patient's current hospital diet: Low Sodium Diet (2gm Na), Diabetes Type 2 Diet Discharge Diet Recommended Diet: Low Sodium Diet (2gm Na), Diabetes Type 2 Diet Procedures Procedures Performed: Left Troch Nail,open reduction Pending Studies Studies pending at discharge: no Laboratory Results Hemoglobin A1c Test 04/27/17 07:02 Range/Units Estimated Average Glucose 194 mg/dl Hemoglobin A1c 8.4 H 4.5-5.6 % Medical Emergencies . Who to Call and When: Medical Emergencies: If at any time you feel your situation is an emergency, please call 911 immediately. . Non-Emergent Contact Non-Emergency issues call your: Primary Care Provider . "Provider Documentation" section prepared by Quyen Barraza. . VTE Core Measure Inpt VTE Proph given/why not?: SCD's
[2017-04-30] MEDS ORDERED: ACETAMINOPHEN 325 MG TAB PO SCH (13:00)
--- NOTE | 2017-04-30 14:31 | DIAGNOSTIC IMAGING REPORT ---
CHEST ONE VIEW PORTABLE CLINICAL HISTORY: 86 years-old Female presenting with cough with sputum. TECHNIQUE: Portable semiupright AP view of the chest was obtained. COMPARISON: 04/29/2017. FINDINGS: Atherosclerosis of aortic arch. Mild prominence of the main pulmonary artery suggested. Cardiac silhouette normal in size. Suggestion of old calcified granuloma in the mid left lung. Mild prominence of lung markings most pronounced in the right upper lung, which appear chronic. No large effusion or pneumothorax. Narrowing of the bilateral acromiohumeral intervals may indicate chronic rotator cuff tears. Upper abdomen normal. IMPRESSION: 1. Chronic prominent lung markings. No focal infiltrate to suggest pneumonia. Electronically signed by: Evans Fletcher M.D. 04/30/2017 2:30 PM Dictated Date/Time: 04/30/2017 2:26 PM
--- NOTE | 2017-04-30 16:17 | Progress Note ---
Internal Med Progress Note Date of Service: Apr 30, 2017. Provider Documentation: SUBJECTIVE: sitting on the chair complains of pain at surgery site afebrile not good appetite no sob request for pain meds OBJECTIVE: Vital Signs-as noted below Exam: General-alert and oriented. Seems to be in pain ENT-normal hearing Neck-no neck masses Lungs-cta b/l no wheezing or crackles Heart-s1 and s2 heard regular rate and rhythm, no murmurs Abdomen-soft bowel sounds present non tender no distension Extremities s/p left hip surgery. dressing intact .no edema no erythema Neuro-alert and oriented moves extremities Lab data as noted below. ASSESSMENT & PLAN: LEFT HIP FRACTURE Mechanical fall with left comminuted intertrochanteric fracture. s/p ORIF with left trochanteric nail performed by Dr. Sanders 04/27/17. Management per Geriatric Hip Fracture Protocol. plan for placement. ANEMIA Hgb 13.9 --> 8.0 --> 6.8. Acute blood loss anemia secondary to hip fracture. s/p,one unit prbc on 04/29/17 hb 7.9 today will transfuse one more unit today AORTIC MURMUR Has III/ systolic murmur. Echo 08/20/16 demonstrated aortic sclerosis without significant stenosis. GERD Continue PPI. DM TYPE 2 Hgb A1C 8.4. Holding oral agents during hospital stay. On Lantus / Novolog per protocol. 291/118/88/104. UTI (present on admission) Urine culture grew Citrobacter freundii complex. IV ceftriaxone#3. 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 VTE PROPHYLAXIS SCD's. SQ heparin. DISPOSITION possible d/c to rehab in 1-2 days Vital Signs: Date Time Temp Pulse Resp B/P (MAP) Pulse Ox O2 Delivery O2 Flow Rate FiO2 04/30/17 15:56 36.8 80 18 130/71 93 04/30/17 15:27 36.9 84 20 123/67 93 04/30/17 15:00 36.8 84 18 127/54 91 04/30/17 14:40 36.7 87 20 125/73 04/30/17 14:22 36.7 90 22 131/64 04/30/17 07:11 36.9 93 19 135/72 (93) 98 Nasal Cannula 2.0 04/29/17 23:55 Nasal Cannula 2.0 04/29/17 23:50 36.7 92 16 134/63 (86) 100 Nasal Cannula 2.0 04/29/17 18:25 99 Nasal Cannula 2.0 Lab Results: Results Past 24 Hours Test 04/29/17 17:24 04/29/17 20:54 04/29/17 23:50 04/30/17 07:40 Range/Units Bedside Glucose 176 291 118 70-90 mg/dl White Blood Count 5.57 4.8-10.8 K/uL Red Blood Count 2.52 4.2-5.4 M/uL Hemoglobin 7.9 12.0-16.0 g/dL Hematocrit 24.2 37-47 % Mean Corpuscular Volume 96.0 80-100 fL Mean Corpuscular Hemoglobin 31.3 25-34 pg Mean Corpuscular Hemoglobin Concent 32.6 32-36 g/dl RDW Standard Deviation 48.0 36.4-46.3 fL RDW Coefficient of Variation 13.9 11.5-14.5 % Platelet Count 102 130-400 K/uL Mean Platelet Volume 9.8 7.4-10.4 fL Creatinine 0.48 0.60-1.20 mg/dl Est Creatinine Clear Calc Drug Dose 67.8 ml/min Estimated GFR () 103.7 Estimated GFR (Non- 89.4 Test 04/30/17 08:02 04/30/17 11:53 Range/Units Bedside Glucose 88 104 70-90 mg/dl
[2017-04-30] MEDS: CEFTRIAXONE SOD INJ 1 GM in DEXTROSE 5% ADD-VANTAGE 50ML 50 ML IV SCH (18:45)
[2017-04-30] MEDS: HYDROmorphone INJ 0.5 MG/0.5 ML SYR IV PRN (18:47)
[2017-04-30] MEDS: DOCUSATE SODIUM/SENNA 50/8.6MG TAB PO SCH (20:52)
[2017-04-30] MEDS: LATANOPROST 0.005% OP SOLN 2.5 ML BTL OPR SCH (20:52)
[2017-04-30] MEDS ORDERED: SODIUM CHLORIDE 0.9% 1000ML 1,000 ML IV SCH (22:45)
[2017-05-01] MEDS: PANTOprazole SOD 40 MG TAB PO SCH (05:22)
[2017-05-01 07:44] VITALS: BP 148/74; PULSE 89; TEMP 36.9; O2SAT 95
[2017-05-01] MEDS: INSULIN ASPART 100 UNITS/ML 3 ML PEN SC SCH ×4 (08:00→21:34)
[2017-05-01] MEDS: ATORVASTATIN 40 MG TAB PO SCH (08:24)
[2017-05-01] MEDS: ACETAMINOPHEN 500 MG TAB PO SCH ×3 (08:24→21:37)
[2017-05-01] MEDS: OXYCODONE HCL IR 5 MG TAB (IMMEDIATE RELEASE) PO PRN ×2 (08:31→21:33)
[2017-05-01 08:55] LABS: HEMATOCRIT 30.4 % (37-47); MEAN CELL VOLUME 91.3 fL (80-100); MEAN CORPUSCULAR HEMOGLOBIN 30.6 pg (25-34); MEAN CORPUSCULAR HGB CONC 33.6 g/dl (32-36); PLATELET COUNT 115 K/uL (130-400); RED BLOOD COUNT 3.33 M/uL (4.2-5.4)
[2017-05-01 09:23] LABS: BUN/CREATININE RATIO 28.6 (10-20); CALCIUM 8.4 mg/dl (8.5-10.1); CREATININE 0.5 mg/dl (0.60-1.20); POTASSIUM 3.6 mmol/L (3.5-5.1)
[2017-05-01] MEDS: HEPARIN SOD 5000 UNIT/0.5 ML CARP SQ SCH ×2 (09:28→21:47)
[2017-05-01] MEDS: INSULIN GLARGINE SOLOSTAR 100 UNITS/ML 3 ML PEN SC SCH ×2 (09:28→21:46)
[2017-05-01] MEDS: CEFTRIAXONE SOD INJ 1 GM in DEXTROSE 5% ADD-VANTAGE 50ML 50 ML IV SCH (09:33)
--- NOTE | 2017-05-01 11:40 | Progress Note ---
Internal Med Progress Note Date of Service: May 01, 2017. Provider Documentation: SUBJECTIVE: resting in bed complains of pain in he left hip ate somewhat better today afebrile no sob or chest pain no nausea OBJECTIVE: Vital Signs-as noted below Exam: General-alert and oriented. Seems to be in pain ENT-normal hearing Neck-no neck masses Lungs-cta b/l no wheezing or crackles Heart-s1 and s2 heard regular rate and rhythm, no murmurs Abdomen-soft bowel sounds present non tender no distension Extremities s/p left hip surgery. dressing intact .no edema no erythema Neuro-alert and oriented moves extremities Lab data as noted below. ASSESSMENT & PLAN: LEFT HIP FRACTURE Mechanical fall with left comminuted intertrochanteric fracture. s/p ORIF with left trochanteric nail performed by Dr. Sanders 04/27/17. Management per Geriatric Hip Fracture Protocol. pt/ot plan for placement. ANEMIA Hgb 13.9 --> 8.0 --> 6.8. Acute blood loss anemia secondary to hip fracture. s/p,one unit prbc on 04/29/17 hb 7.9 04/30/17 Transfused one more unit on 04/30/17 hb 10.2 today AORTIC MURMUR Has III/ systolic murmur. Echo 08/20/16 demonstrated aortic sclerosis without significant stenosis. GERD Continue PPI. DM TYPE 2 Hgb A1C 8.4. Holding oral agents during hospital stay. On Lantus / Novolog per protocol. [id number] UTI (present on admission) Urine culture grew Citrobacter freundii complex. IV ceftriaxone#4. 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 VTE PROPHYLAXIS SCD's. SQ heparin. DISPOSITION possible d/c to rehab in am if stable Vital Signs: Date Time Temp Pulse Resp B/P (MAP) Pulse Ox O2 Delivery O2 Flow Rate FiO2 05/01/17 08:00 Room Air 05/01/17 07:44 36.9 89 15 148/74 (98) 95 Room Air 04/30/17 23:30 Room Air 04/30/17 23:25 36.9 74 16 135/66 (89) 93 Room Air 04/30/17 19:30 Room Air 04/30/17 16:54 37.0 72 16 115/64 92 04/30/17 15:56 36.8 80 18 130/71 93 04/30/17 15:27 36.9 84 20 123/67 93 04/30/17 15:00 36.8 84 18 127/54 91 04/30/17 14:40 36.7 87 20 125/73 04/30/17 14:22 36.7 90 22 131/64 Lab Results: Results Past 24 Hours Test 04/30/17 11:53 04/30/17 17:25 04/30/17 20:40 05/01/17 07:56 Range/Units Bedside Glucose 104 159 146 131 70-90 mg/dl Test 05/01/17 08:29 Range/Units White Blood Count 6.10 4.8-10.8 K/uL Red Blood Count 3.33 4.2-5.4 M/uL Hemoglobin 10.2 12.0-16.0 g/dL Hematocrit 30.4 37-47 % Mean Corpuscular Volume 91.3 80-100 fL Mean Corpuscular Hemoglobin 30.6 25-34 pg Mean Corpuscular Hemoglobin Concent 33.6 32-36 g/dl RDW Standard Deviation 52.2 36.4-46.3 fL RDW Coefficient of Variation 15.9 11.5-14.5 % Platelet Count 115 130-400 K/uL Mean Platelet Volume 10.0 7.4-10.4 fL Sodium Level 134 136-145 mmol/L Potassium Level 3.6 3.5-5.1 mmol/L Chloride Level 98 98-107 mmol/L Carbon Dioxide Level 27 21-32 mmol/L Anion Gap 9.0 3-11 mmol/L Blood Urea Nitrogen 14 7-18 mg/dl Creatinine 0.50 0.60-1.20 mg/dl Est Creatinine Clear Calc Drug Dose 65.1 ml/min Estimated GFR () 102.3 Estimated GFR (Non- 88.3 BUN/Creatinine Ratio 28.6 10-20 Random Glucose 123 70-99 mg/dl Calcium Level 8.4 8.5-10.1 mg/dl
[2017-05-01] MEDS ORDERED: NURSING VERBAL MED ORDER ONE (13:15)
[2017-05-01 15:27] VITALS: BP 132/71; PULSE 79; TEMP 36.9; O2SAT 98
--- NOTE | 2017-05-01 15:59 | Consultant Recommendations ---
Regional Training Manager Recommendations Date of Service May 01, 2017. Regional Training Manager Recommendations U DISCHARGE INSTRUCTIONS: HIP FRACTURE SELF CARE INSTRUCTIONS: A. You are to ambulate with a walker or crutches for approximately 6 weeks. B. You are TOE TOUCH WEIGHT BEARING on your operative lower extremity for at least 6 weeks. C. Wear low heeled shoes with non-slip soles D. Be sure that your floors are free of things that could trip you throw rugs, electrical cords, and small objects. Avoid wet and waxed floors, especially with crutches/walker/cane. E. Try to walk several times a day with rest periods between. F. You may shower 48 hours after surgery and get the incision area wet, but DO NOT soak or submerge incision area in water. (No baths, swimming pools, hot tubs ) G. You may have a large, band-aid like dressing over your incision (Aquacel). This will remain on your incision for 7 days, and then can be removed. You CAN shower with this on. If incision is leaking through the dressing, please call the office . H. Do NOT apply soap or any ointment/lotions directly over incision. I. You may use ice as needed to operative site. SPECIAL CARE INSTRUCTIONS: VERY IMPORTANT TO READ AND REVIEW A. You may be at risk for phlebitis or blood clots. a. Wear surgical stockings (DELMI hose) for 2 weeks after surgery to improve circulation and reduce swelling. b. Take HEPARIN SQ BID for 4 weeks or as directed. This is your blood thinner. c. If you are on Coumadin- you will have daily/weekly blood work to monitor your levels. This will be done by either your family physician/ senior linux unix engineer (if you are on Coumadin chronically) versus your orthopedic surgeon. Expect a phone call the day of or the day after your blood work is drawn to adjust your dose accordingly. B. There are a few signs you need to watch for after you are home. Call [facility] at [phone] if you experience any of the following: a. If you have a temperature of 101 degrees or higher. b. Sudden increase in pain in your hip not relieved by rest or pain medication. c. Any fluid or drainage from the incision; redness of the incision. d. Shortness of breath or chest pain. C. Call your physician if: a. Temperature is greater than 101 degrees (F). b. Pain is not relieved by prescribed pain medications. c. Increase drainage or redness from incision. d. Unanswered questions or concerns. D. Pain Medication: a. You will be prescribed pain medication upon discharge that should last till your first post-operative appointment. b. If you experience nausea and/or skin rash, discontinue this medication and contact our office for an alternative medication. c. Caution- narcotic pain medication can cause constipation. FOLLOW UP VISIT: Please call [facility] at [phone] to schedule a follow up appointment 10-14 days from the date of your surgery date.
[2017-05-01] MEDS: DOCUSATE SODIUM/SENNA 50/8.6MG TAB PO SCH (21:33)
[2017-05-01] MEDS: LATANOPROST 0.005% OP SOLN 2.5 ML BTL OPR SCH (21:33)
[2017-05-01] MEDS: HYDROmorphone INJ 0.5 MG/0.5 ML SYR IV PRN (22:36)
[2017-05-01 22:50] VITALS: BP 142/65; PULSE 77; TEMP 36.6; O2SAT 94
[2017-05-02] MEDS: HYDROmorphone INJ 0.5 MG/0.5 ML SYR IV PRN (00:42)
[2017-05-02] MEDS: ACETAMINOPHEN 500 MG TAB PO SCH ×2 (05:44→15:40)
[2017-05-02] MEDS: PANTOprazole SOD 40 MG TAB PO SCH (05:44)
[2017-05-02 06:32] LABS: BUN/CREATININE RATIO 25.7 (10-20); CALCIUM 8.3 mg/dl (8.5-10.1); CREATININE 0.47 mg/dl (0.60-1.20); POTASSIUM 3.4 mmol/L (3.5-5.1)
[2017-05-02 07:43] VITALS: BP 140/48; PULSE 84; TEMP 36.8; O2SAT 94
[2017-05-02 07:45] VITALS: O2SAT 94
[2017-05-02] MEDS: INSULIN ASPART 100 UNITS/ML 3 ML PEN SC SCH ×2 (08:00→12:00)
[2017-05-02] MEDS: OXYCODONE HCL IR 5 MG TAB (IMMEDIATE RELEASE) PO PRN (08:04)
[2017-05-02] MEDS: INSULIN GLARGINE SOLOSTAR 100 UNITS/ML 3 ML PEN SC SCH (09:00)
[2017-05-02] MEDS ORDERED: POTASSIUM CHLORIDE 10 MEQ TABCR PO ONE (09:15)
[2017-05-02] MEDS: ATORVASTATIN 40 MG TAB PO SCH (09:18)
[2017-05-02] MEDS: HEPARIN SOD 5000 UNIT/0.5 ML CARP SQ SCH (09:21)
[2017-05-02] MEDS: CEFTRIAXONE SOD INJ 1 GM in DEXTROSE 5% ADD-VANTAGE 50ML 50 ML IV SCH (09:21)
--- NOTE | 2017-05-02 12:41 | Progress Note ---
Internal Med Progress Note Date of Service: May 02, 2017. Provider Documentation: SUBJECTIVE: sitting on he chair comfortably eating good has some pain at surgery site afebrile no nausea no chest pain or sob OBJECTIVE: Vital Signs-as noted below Exam: General-alert and oriented. Seems to be in pain ENT-normal hearing Neck-no neck masses Lungs-cta b/l no wheezing or crackles Heart-s1 and s2 heard regular rate and rhythm, no murmurs Abdomen-soft bowel sounds present non tender no distension Extremities s/p left hip surgery. dressing intact .no edema no erythema Neuro-alert and oriented moves extremities Lab data as noted below. ASSESSMENT & PLAN: LEFT HIP FRACTURE Mechanical fall with left comminuted intertrochanteric fracture. s/p ORIF with left trochanteric nail performed by Dr. Sanders 04/27/17. Management per Geriatric Hip Fracture Protocol. pt/ot plan for [facility] today ANEMIA Hgb 13.9 --> 8.0 --> 6.8. Acute blood loss anemia secondary to hip fracture. s/p,one unit prbc on 04/29/17 hb 7.9 04/30/17 Transfused one more unit on 04/30/17 hb 10.2 AORTIC MURMUR Has III/ systolic murmur. Echo 08/20/16 demonstrated aortic sclerosis without significant stenosis. GERD Continue PPI. DM TYPE 2 Hgb A1C 8.4. Holding oral agents during hospital stay. On Lantus / Novolog per protocol. d/c on home meds UTI (present on admission) Urine culture grew Citrobacter freundii complex. IV ceftriaxone#5 will stop abx. 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 d/c enriquez on discharge VTE PROPHYLAXIS SCD's. SQ heparin. DISPOSITION d/c to rehab today Vital Signs: Date Time Temp Pulse Resp B/P (MAP) Pulse Ox O2 Delivery O2 Flow Rate FiO2 05/02/17 07:45 94 Room Air 05/02/17 07:43 36.8 84 18 140/48 (78) 94 Room Air 05/02/17 00:00 Room Air 05/01/17 22:50 36.6 77 18 142/65 (90) 94 Room Air 05/01/17 15:30 Room Air 05/01/17 15:27 36.9 79 18 132/71 (91) 98 Room Air Lab Results: Results Past 24 Hours Test 05/01/17 17:23 05/01/17 20:40 05/02/17 05:44 05/02/17 07:51 Range/Units Bedside Glucose 138 165 73 70-90 mg/dl Sodium Level 136 136-145 mmol/L Potassium Level 3.4 3.5-5.1 mmol/L Chloride Level 100 98-107 mmol/L Carbon Dioxide Level 31 21-32 mmol/L Anion Gap 5.0 3-11 mmol/L Blood Urea Nitrogen 12 7-18 mg/dl Creatinine 0.47 0.60-1.20 mg/dl Est Creatinine Clear Calc Drug Dose 69.2 ml/min Estimated GFR () 104.4 Estimated GFR (Non- 90.1 BUN/Creatinine Ratio 25.7 10-20 Random Glucose 65 70-99 mg/dl Calcium Level 8.3 8.5-10.1 mg/dl Test 05/02/17 12:04 Range/Units Bedside Glucose 135 70-90 mg/dl
[2017-05-02] MEDS ORDERED: RXC5 PO (12:45)
[2017-05-02] MEDS ORDERED: ACET-749 PO (12:45)
[2017-05-02] MEDS ORDERED: MRLP17X PO (12:45)
--- NOTE | 2017-05-02 12:50 | Discharge Instructions ---
Discharge Instructions Date of Service May 02, 2017. Admission Reason for Admission: Fracture Of L Hip Discharge Discharge Diagnosis / Problem: LEFT HIP FRACURE, ACUTE BLOOD LOSS ANEMIA POST OP Discharge Goals Goal(s): Decrease discomfort, Improve function Activity Recommendations Activity Level: Up [place] Therapies: Physical Therapy, Occupational Therapy Weightbearing Status: Left weightbearing (as tolerated.WEIGHT BEARING TOLERATE/ PARTIAL WEIGHT BEARING/ TOE TOUCH WEIGHT BEARING) . Additional Information Patient informed of condition: Yes Advance Directives: Yes DNR: No Level of Care: Acute Rehab Communicable Disease: No Prognosis: Stable Soto Catheter: No Instructions / Follow-Up Instructions / Follow-Up FOLLOWUP WITH FAMILY DOCTOR IN ONE WEEK. FOLLOWUP WITH ORTHOPEDICS IN 10-14 DAYS. ORTHOPEDICS RECOMMENDATIONS: Middleware Systems Architect Recommendations [facility] DISCHARGE INSTRUCTIONS: HIP FRACTURE SELF CARE INSTRUCTIONS: A. You are to ambulate with a walker or crutches for approximately 6 weeks. B. You are TOE TOUCH WEIGHT BEARING on your operative lower extremity for at least 6 weeks. C. Wear low heeled shoes with non-slip soles D. Be sure that your floors are free of things that could trip you throw rugs, electrical cords, and small objects. Avoid wet and waxed floors, especially with crutches/walker/cane. E. Try to walk several times a day with rest periods between. F. You may shower 48 hours after surgery and get the incision area wet, but DO NOT soak or submerge incision area in water. (No baths, swimming pools, hot tubs ) G. You may have a large, band-aid like dressing over your incision (Aquacel). This will remain on your incision for 7 days, and then can be removed. You CAN shower with this on. If incision is leaking through the dressing, please call the office . H. Do NOT apply soap or any ointment/lotions directly over incision. I. You may use ice as needed to operative site. SPECIAL CARE INSTRUCTIONS: VERY IMPORTANT TO READ AND REVIEW A. You may be at risk for phlebitis or blood clots. a. Wear surgical stockings (DELMI hose) for 2 weeks after surgery to improve circulation and reduce swelling. b. Take HEPARIN SQ BID for 4 weeks or as directed. This is your blood thinner. c. If you are on Coumadin- you will have daily/weekly blood work to monitor your levels. This will be done by either your family physician/ river rafting guide (if you are on Coumadin chronically) versus your orthopedic surgeon. Expect a phone call the day of or the day after your blood work is drawn to adjust your dose accordingly. B. There are a few signs you need to watch for after you are home. Call [facility] at [phone] if you experience any of the following: a. If you have a temperature of 101 degrees or higher. b. Sudden increase in pain in your hip not relieved by rest or pain medication. c. Any fluid or drainage from the incision; redness of the incision. d. Shortness of breath or chest pain. C. Call your physician if: a. Temperature is greater than 101 degrees (F). b. Pain is not relieved by prescribed pain medications. c. Increase drainage or redness from incision. d. Unanswered questions or concerns. D. Pain Medication: a. You will be prescribed pain medication upon discharge that should last till your first post-operative appointment. b. If you experience nausea and/or skin rash, discontinue this medication and contact our office for an alternative medication. c. Caution- narcotic pain medication can cause constipation. FOLLOW UP VISIT: Please call [facility] at [phone] to schedule a follow up appointment 10-14 days from the date of your surgery date. Current Hospital Diet Patient's current hospital diet: Low Sodium Diet (2gm Na), Diabetes Type 2 Diet Discharge Diet Recommended Diet: Low Sodium Diet (2gm Na), Diabetes Type 2 Diet Procedures Procedures Performed: Left Troch Nail,open reduction Pending Studies Studies pending at discharge: no Physician Orders On Transfer Special Precautions: FALL AND ASPIRATION PRECAUTIONS Vital Signs: EVERY 8HRS Laboratory Results Hemoglobin A1c Test 04/27/17 07:02 Range/Units Estimated Average Glucose 194 mg/dl Hemoglobin A1c 8.4 H 4.5-5.6 % Medical Emergencies . Who to Call and When: Medical Emergencies: If at any time you feel your situation is an emergency, please call 911 immediately. . Non-Emergent Contact Non-Emergency issues call your: Primary Care Provider . . "Provider Documentation" section prepared by Luis Medellin. . Middleware Systems Architect Recommendations Middleware Systems Architect Recommendations: [facility] DISCHARGE INSTRUCTIONS: HIP FRACTURE SELF CARE INSTRUCTIONS: A. You are to ambulate with a walker or crutches for approximately 6 weeks. B. You are TOE TOUCH WEIGHT BEARING on your operative lower extremity for at least 6 weeks. C. Wear low heeled shoes with non-slip soles D. Be sure that your floors are free of things that could trip you throw rugs, electrical cords, and small objects. Avoid wet and waxed floors, especially with crutches/walker/cane. E. Try to walk several times a day with rest periods between. F. You may shower 48 hours after surgery and get the incision area wet, but DO NOT soak or submerge incision area in water. (No baths, swimming pools, hot tubs ) G. You may have a large, band-aid like dressing over your incision (Aquacel). This will remain on your incision for 7 days, and then can be removed. You CAN shower with this on. If incision is leaking through the dressing, please call the office . H. Do NOT apply soap or any ointment/lotions directly over incision. I. You may use ice as needed to operative site. SPECIAL CARE INSTRUCTIONS: VERY IMPORTANT TO READ AND REVIEW A. You may be at risk for phlebitis or blood clots. a. Wear surgical stockings (DELMI hose) for 2 weeks after surgery to improve circulation and reduce swelling. b. Take HEPARIN SQ BID for 4 weeks or as directed. This is your blood thinner. c. If you are on Coumadin- you will have daily/weekly blood work to monitor your levels. This will be done by either your family physician/ river rafting guide (if you are on Coumadin chronically) versus your orthopedic surgeon. Expect a phone call the day of or the day after your blood work is drawn to adjust your dose accordingly. B. There are a few signs you need to watch for after you are home. Call [facility] at [phone] if you experience any of the following: a. If you have a temperature of 101 degrees or higher. b. Sudden increase in pain in your hip not relieved by rest or pain medication. c. Any fluid or drainage from the incision; redness of the incision. d. Shortness of breath or chest pain. C. Call your physician if: a. Temperature is greater than 101 degrees (F). b. Pain is not relieved by prescribed pain medications. c. Increase drainage or redness from incision. d. Unanswered questions or concerns. D. Pain Medication: a. You will be prescribed pain medication upon discharge that should last till your first post-operative appointment. b. If you experience nausea and/or skin rash, discontinue this medication and contact our office for an alternative medication. c. Caution- narcotic pain medication can cause constipation. FOLLOW UP VISIT: Please call [facility] at [phone] to schedule a follow up appointment 10-14 days from the date of your surgery date. Core Measure Problem Core Measures: None
[2017-05-02] MEDS ORDERED: HPRIS5M SQ (12:51)
--- NOTE | 2017-05-02 12:55 | Discharge Summary ---
Discharge Summary Date of Service May 02, 2017. Discharge Summary Admission Date: Apr 26, 2017 at 17:51 Discharge Date: May 02, 2017 Discharge Disposition: Rehab Principal Diagnosis: LEFT HIP FRACTURE S/P SURGERY ACUTE BLOOD LOSS ANEMIA-POST OP UTI Secondary Diagnoses/Problems: 1) Dyslipidemia Status: Chronic (2) GERD (gastroesophageal reflux disease) Status: Chronic (3) HTN (hypertension) Status: Chronic Procedures: LEFT HIP/PELVIS X RAY: Comminuted and displaced left hip intertrochanteric fracture S/P LEFT HIP SURGERY Consultations: Orthopedics . Medication Reconciliation New Medications: Heparin Sod (Porcine) (Heparin Sodium) 5,000 Unit/0.5 Ml Inj 5000 UNIT SQ Q12 for 28 Days Oxycodone HCl (Oxycodone HCl) 5 Mg Tab 5 MG PO Q6H PRN for severe pain, #10 TAB Polyethylene (Miralax) 17 Gm Pow 17 GM PO DAILY PRN for Constipation, #20 Continued Medications: Acetaminophen/Codeine (Tylenol W/Codeine #3) 300 Mg/30 Mg Tab 1 TAB PO Q8 PRN for Pain, #10 TAB (This prescription has been renewed) Albuterol (Ventolin) Inh 2 PUFFS INH PRN for 5 Days, 0 Refills Atorvastatin (Lipitor) 40 Mg Tab 40 MG PO DAILY, TAB Ferrous Sulfate (Ferrous Sulfate) 325 Mg Tab 325 MG PO BIDM for 30 Days, #60 TAB Furosemide (Furosemide) 20 Mg Tab 20 MG PO QAM for 30 Days, #30 TAB Glipizide (Glipizide Er) 10 Mg Tab 20 MG PO DAILY for 90 Days, #180 TAB 3 Refills Lactobacillus Acidophilus (Lactinex) Tab 1 TAB PO AC, TAB Latanoprost (Xalatan 0.005% Oph Cherrie) 0.005 % Cherrie 1 DROPS OPR HS, #2.5 ML 3 Refills Metformin Hcl Er (Glucophage Er) 500 Mg Tab 1000 MG PO DAILY, TAB Multiple Vitamins W/ Minerals (Centrum Silver) 1 Chw Chw 1 TAB PO DAILY Omeprazole (Prilosec) 20 Mg Cap 20 MG OR DAILYBB Repaglinide (Prandin) 1 Mg Tab 1 MG PO AC, TAB Admission Information HPI (per Admitting provider): This is an 86yo female with a PMH of HTN, DM II, MARIE and osteoarthritis who presents with L hip pain after a fall this afternoon. Patient reached for a cupboard while cooking, lost her balance and fell onto her left side. Denies hitting her head or LOC. Some neighbors overheard the fall and called EMS. Patient initially had severe pain but after being given morphine in the ED, pain is a 2/10 on the pain scale. Denies any lightheadedness, confusion, CP, SOB , nausea/vomiting, numbness or tingling in lower extremities. Patient lives alone and can perform ADLs independently. Ambulates with a cane and walker. Physical Exam (per Admitting): General Appearance: WD/WN, no apparent distress Head: normocephalic Eyes: normal inspection, sclerae normal ENT: hearing grossly normal Neck: supple, thyroid normal, trachea midline Respiratory/Chest: chest non-tender, lungs clear, normal breath sounds, no respiratory distress, no accessory muscle use Cardiovascular: regular rate, rhythm, no murmur Abdomen/GI: normal bowel sounds, non tender, soft, no organomegaly Extremities/Musculoskelatal: normal inspection, no calf tenderness, normal capillary refill, no pedal edema, + pertinent finding (L hip with TTP. No visible swelling or ecchymosis. ) Neurologic/Psych: no motor/sensory deficits, alert, normal mood/affect, oriented x 3 Skin: normal color, warm/dry, no rash Hospital Course LEFT HIP FRACTURE Mechanical fall with left comminuted intertrochanteric fracture. s/p ORIF with left trochanteric nail performed by Dr. Sanders 04/27/17. Management per Geriatric Hip Fracture Protocol. pt/ot plan for [facility] today ANEMIA Hgb 13.9 --> 8.0 --> 6.8. Acute blood loss anemia secondary to hip fracture. s/p,one unit prbc on 04/29/17 hb 7.9 04/30/17 Transfused one more unit on 04/30/17 hb 10.2 AORTIC MURMUR Has III/ systolic murmur. Echo 08/20/16 demonstrated aortic sclerosis without significant stenosis. GERD Continue PPI. DM TYPE 2 Hgb A1C 8.4. Holding oral agents during hospital stay. On Lantus / Novolog per protocol. d/c on home meds UTI (present on admission) Urine culture grew Citrobacter freundii complex. IV ceftriaxone#5 will stop abx. 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 d/c hicks on discharge VTE PROPHYLAXIS SCD's. SQ heparin. DISPOSITION d/c to rehab today Total time spent on discharge = 40MINUTES This includes examination of the patient, discharge planning, medication reconciliation, and communication with other providers. Discharge Instructions Discharge Instructions Date of Service May 02, 2017. Admission Reason for Admission: Fracture Of L Hip Discharge Discharge Diagnosis / Problem: LEFT HIP FRACURE, ACUTE BLOOD LOSS ANEMIA POST OP Discharge Goals Goal(s): Decrease discomfort, Improve function Activity Recommendations Activity Level: Up Ad [place] Therapies: Physical Therapy, Occupational Therapy Weightbearing Status: Left weightbearing (as tolerated.WEIGHT BEARING TOLERATE/ PARTIAL WEIGHT BEARING/ TOE TOUCH WEIGHT BEARING) . Additional Information Patient informed of condition: Yes Advance Directives: Yes DNR: No Level of Care: Acute Rehab Communicable Disease: No Prognosis: Stable Hicks Catheter: No Instructions / Follow-Up Instructions / Follow-Up FOLLOWUP WITH FAMILY DOCTOR IN ONE WEEK. MONITOR BLOOD SUGARS CLOSELY FOLLOWUP WITH ORTHOPEDICS IN 10-14 DAYS. ORTHOPEDICS RECOMMENDATIONS: General Operations Agent Recommendations [facility] DISCHARGE INSTRUCTIONS: HIP FRACTURE SELF CARE INSTRUCTIONS: A. You are to ambulate with a walker or crutches for approximately 6 weeks. B. You are TOE TOUCH WEIGHT BEARING on your operative lower extremity for at least 6 weeks. C. Wear low heeled shoes with non-slip soles D. Be sure that your floors are free of things that could trip you throw rugs, electrical cords, and small objects. Avoid wet and waxed floors, especially with crutches/walker/cane. E. Try to walk several times a day with rest periods between. F. You may shower 48 hours after surgery and get the incision area wet, but DO NOT soak or submerge incision area in water. (No baths, swimming pools, hot tubs ) G. You may have a large, band-aid like dressing over your incision (Aquacel). This will remain on your incision for 7 days, and then can be removed. You CAN shower with this on. If incision is leaking through the dressing, please call the office . H. Do NOT apply soap or any ointment/lotions directly over incision. I. You may use ice as needed to operative site. SPECIAL CARE INSTRUCTIONS: VERY IMPORTANT TO READ AND REVIEW A. You may be at risk for phlebitis or blood clots. a. Wear surgical stockings (DELMI hose) for 2 weeks after surgery to improve circulation and reduce swelling. b. Take HEPARIN SQ BID for 4 weeks or as directed. This is your blood thinner. c. If you are on Coumadin- you will have daily/weekly blood work to monitor your levels. This will be done by either your family physician/ tractor driver (if you are on Coumadin chronically) versus your orthopedic surgeon. Expect a phone call the day of or the day after your blood work is drawn to adjust your dose accordingly. B. There are a few signs you need to watch for after you are home. Call [facility] at [phone] if you experience any of the following: a. If you have a temperature of 101 degrees or higher. b. Sudden increase in pain in your hip not relieved by rest or pain medication. c. Any fluid or drainage from the incision; redness of the incision. d. Shortness of breath or chest pain. C. Call your physician if: a. Temperature is greater than 101 degrees (F). b. Pain is not relieved by prescribed pain medications. c. Increase drainage or redness from incision. d. Unanswered questions or concerns. D. Pain Medication: a. You will be prescribed pain medication upon discharge that should last till your first post-operative appointment. b. If you experience nausea and/or skin rash, discontinue this medication and contact our office for an alternative medication. c. Caution- narcotic pain medication can cause constipation. FOLLOW UP VISIT: Please call [facility] at [phone] to schedule a follow up appointment 10-14 days from the date of your surgery date. Current Hospital Diet Patient's current hospital diet: Low Sodium Diet (2gm Na), Diabetes Type 2 Diet Discharge Diet Recommended Diet: Low Sodium Diet (2gm Na), Diabetes Type 2 Diet Procedures Procedures Performed: Left Troch Nail,open reduction Pending Studies Studies pending at discharge: no Physician Orders On Transfer Special Precautions: FALL AND ASPIRATION PRECAUTIONS Vital Signs: EVERY 8HRS Laboratory Results Hemoglobin A1c Test 04/27/17 07:02 Range/Units Estimated Average Glucose 194 mg/dl Hemoglobin A1c 8.4 H 4.5-5.6 % Medical Emergencies . Who to Call and When: Medical Emergencies: If at any time you feel your situation is an emergency, please call 911 immediately. . Non-Emergent Contact Non-Emergency issues call your: Primary Care Provider . . "Provider Documentation" section prepared by Luis Medellin. . General Operations Agent Recommendations General Operations Agent Recommendations: U DISCHARGE INSTRUCTIONS: HIP FRACTURE SELF CARE INSTRUCTIONS: A. You are to ambulate with a walker or crutches for approximately 6 weeks. B. You are TOE TOUCH WEIGHT BEARING on your operative lower extremity for at least 6 weeks. C. Wear low heeled shoes with non-slip soles D. Be sure that your floors are free of things that could trip you throw rugs, electrical cords, and small objects. Avoid wet and waxed floors, especially with crutches/walker/cane. E. Try to walk several times a day with rest periods between. F. You may shower 48 hours after surgery and get the incision area wet, but DO NOT soak or submerge incision area in water. (No baths, swimming pools, hot tubs ) G. You may have a large, band-aid like dressing over your incision (Aquacel). This will remain on your incision for 7 days, and then can be removed. You CAN shower with this on. If incision is leaking through the dressing, please call the office . H. Do NOT apply soap or any ointment/lotions directly over incision. I. You may use ice as needed to operative site. SPECIAL CARE INSTRUCTIONS: VERY IMPORTANT TO READ AND REVIEW A. You may be at risk for phlebitis or blood clots. a. Wear surgical stockings (DELMI hose) for 2 weeks after surgery to improve circulation and reduce swelling. b. Take HEPARIN SQ BID for 4 weeks or as directed. This is your blood thinner. c. If you are on Coumadin- you will have daily/weekly blood work to monitor your levels. This will be done by either your family physician/ tractor driver (if you are on Coumadin chronically) versus your orthopedic surgeon. Expect a phone call the day of or the day after your blood work is drawn to adjust your dose accordingly. B. There are a few signs you need to watch for after you are home. Call [facility] at [phone] if you experience any of the following: a. If you have a temperature of 101 degrees or higher. b. Sudden increase in pain in your hip not relieved by rest or pain medication. c. Any fluid or drainage from the incision; redness of the incision. d. Shortness of breath or chest pain. C. Call your physician if: a. Temperature is greater than 101 degrees (F). b. Pain is not relieved by prescribed pain medications. c. Increase drainage or redness from incision. d. Unanswered questions or concerns. D. Pain Medication: a. You will be prescribed pain medication upon discharge that should last till your first post-operative appointment. b. If you experience nausea and/or skin rash, discontinue this medication and contact our office for an alternative medication. c. Caution- narcotic pain medication can cause constipation. FOLLOW UP VISIT: Please call [facility] at [phone] to schedule a follow up appointment 10-14 days from the date of your surgery date. Core Measure Problem Core Measures: None
[2017-05-02 14:32] VITALS: BP 140/48; PULSE 84; TEMP 36.8; O2SAT 94
[2017-05-02 15:23] VITALS: BP 154/78; TEMP 36.4; O2SAT 96
== END 2017-05-02 15:42 | DRG 481 ==
LOC: EDBD 15:32 → C.EDA 15:33 → C.MSN 17:51 → ENRESERV 18:10
PROVIDERS: ADMIT Hospitalist; ATTEND Internal Medicine
PROC: 0QS704Z Reposition Left Upper Femur with Internal Fixation Device, Open Approach (ICD-10-PCS; principal; 2017-04-27 12:30)
DX: S72.142A Displaced intertrochanteric fracture of left femur, initial encounter for closed fracture (principal); D62 Acute posthemorrhagic anemia; N39.0 Urinary tract infection, site not specified; B96.89 Other specified bacterial agents as the cause of diseases classified elsewhere; Y92.010 Kitchen of single-family (private) house as the place of occurrence of the external cause; Y93.G3 Activity, cooking and baking; K21.9 Gastro-esophageal reflux disease without esophagitis; I10 Essential (primary) hypertension; Z87.891 Personal history of nicotine dependence; E11.9 Type 2 diabetes mellitus without complications; M19.90 Unspecified osteoarthritis, unspecified site; W19.XXXA Unspecified fall, initial encounter

== ENCOUNTER → 2017-06-21 | Outpatient (CLI) | payer OTHER, BC ==
[~2017-06-21] MED LIST changes: +ACET-749 PO; -FLNIN NAE; +HPRIS5M SQ; +LCTX PO; +MRLP17X PO; -REPA0.5T PO; +REPA1TAB42 PO; +RXC5 PO; -TMPOPS15 OPB
[2017-06-21 17:15] LABS: URINE APPEARANCE CLEAR (CLEAR); URINE BILIRUBIN NEG (NEG); URINE COLOR YELLOW; URINE NITRITE NEG (NEG); URINE SPECIFIC GRAVITY 1.017 (1.000-1.030); UROBILINOGEN NEG (NEG)
[2017-06-21 17:18] LABS: MANUAL MICROSCOPIC REQUIRED? NO; REVIEW REQ? NO
== END | disposition home or self-care (01) ==
LOC: C.LABSPEC 16:53
PROVIDERS: ATTEND Nurse Practitioner
DX: R41.82 Altered mental status, unspecified (principal)

== ENCOUNTER → 2017-08-16 | Outpatient (CLI) | payer OTHER, BC ==
[~2017-08-16] MED LIST changes: +REPA1TAB40 PO; -REPA1TAB42 PO
[2017-08-16 13:01] LABS: ESTIMATED AVERAGE GLUCOSE 134 mg/dl; HA1C FLAG Normal (Normal)
== END | disposition home or self-care (01) ==
LOC: C.LABOAKS 09:31
PROVIDERS: ATTEND Nurse Practitioner
DX: E11.9 Type 2 diabetes mellitus without complications (principal)

== ENCOUNTER → 2017-11-08 | Outpatient (CLI) | payer OTHER, BC ==
[2017-11-08 13:18] LABS: HEMOGLOBIN A1C 6.8 % (4.5-5.6)
== END | disposition home or self-care (01) ==
LOC: C.LABOAKS 09:32
PROVIDERS: ATTEND Nurse Practitioner
DX: E11.9 Type 2 diabetes mellitus without complications (principal)

== ENCOUNTER → 2017-11-17 | Outpatient (CLI) | payer OTHER, BC ==
[2017-11-17 13:45] LABS: HEP C IGG 13 YRS+OLDER_RFLX NEG (NEG)
[2017-11-18 07:55] LABS: HEPATITIS A IGM TC 51813E NON-REACTIVE (NON-REACTIVE); HEPATITIS B CORE IGM TC51854R NON-REACTIVE (NON-REACTIVE)
== END | disposition home or self-care (01) ==
LOC: C.LABOAKS 11:47
PROVIDERS: ATTEND Nurse Practitioner
DX: Z77.9 Other contact with and (suspected) exposures hazardous to health (principal)

== ENCOUNTER 2019-06-28 17:43 | Inpatient (IN) ==
[2019-06-28] MEDS ORDERED: PANTOprazole 80 MG in DEXTROSE 5% 100 ML IV STA (18:07)
[2019-06-28] MEDS ORDERED: SODIUM CHLORIDE 0.9% 1000ML 1,000 ML IV SCH (18:15)
[2019-06-28 18:29] LABS: Basophils # (auto) 0.05 K/uL (0-0.2); Basophils % (auto) 0.5 %; Eosinophils # (auto) 0.32 K/uL (0-0.5); Eosinophils % (auto) 3.3 %; Hematocrit (blood only) 31.9 % (37-47); Hemoglobin 10.4 g/dL (12.0-16.0); Immature Granulocytes # (auto) 0.03 K/uL (0.00-0.02); Immature Granulocytes % (auto) 0.3 %; Lymphocytes # (auto) 0.66 K/uL (1.2-3.4); Lymphocytes % (auto) 6.7 %; Mean Corpuscular Hemoglobin 31.8 pg (25-34); Mean Corpuscular Hgb Conc 32.6 g/dL (32-36); Mean Corpuscular Volume 97.6 fL (80-100); Mean Platelet Volume 10.2 fL (7.4-10.4); Monocytes # (auto) 0.61 K/uL (0.11-0.59); Monocytes % (auto) 6.2 %; Neutrophils # (auto) 8.14 K/uL (1.4-6.5); Platelet Count 105 K/uL (130-400); RDW Coefficient of Variation 14.1 % (11.5-14.5); RDW Standard Deviation 50.4 fL (36.4-46.3); Red Blood Count 3.27 M/uL (4.2-5.4); White Blood Count 9.81 K/uL (4.8-10.8)
[2019-06-28 18:42] LABS: INR 1.3 (0.9-1.1); Partial Thromboplastin Time 27.1 Seconds (21.0-31.0); Prothrombin Time 12.8 Seconds (9.0-12.0)
[2019-06-28 18:48] LABS: Albumin Level 2.6 gm/dl (3.4-5.0); BUN Creatinine Ratio 63.5 (10-20); Calcium 8.9 mg/dl (8.5-10.1); Creatinine Clr Calc Pharmacy 38.9 ml/min; Est GFR (African American) 76.8; Est GFR (Non-African American) 66.3; Potassium 4.3 mmol/L (3.5-5.1)
[2019-06-28 18:51] LABS: Albumin Globulin Ratio 0.8 (0.9-2); Bilirubin,Total 0.8 mg/dl (0.2-1); Globulin 3.3 gm/dl (2.5-4.0); Total Protein 5.9 gm/dl (6.4-8.2)
[2019-06-28] MEDS ORDERED: IOVERSOL 100ml IV PRN (18:53)
[2019-06-28] MEDS: PANTOprazole 40 MG in DEXTROSE 5% 100 ML IV SCH (19:08)
--- NOTE | 2019-06-28 19:23 | CT Scan Report ---
CT OF THE ABDOMEN AND PELVIS WITH CONTRAST CLINICAL HISTORY: GI bleed. COMPARISON STUDY: None. TECHNIQUE: Following IV administration of 91 mL of Optiray-320, axial images of the abdomen and pelvi s were obtained from the lung bases to the proximal femurs. Images were reviewed in the axial, sagitt al, and coronal planes. IV contrast was administered without complication. Automated exposure contro l was utilized for the study. A dose lowering technique was utilized adhering to the principles of A EFRAÍN. CT DOSE: 424.78 mGy.cm FINDINGS: Imaged portions of the lower chest demonstrate extensive esophageal varices. The heart is m oderately enlarged. Subpleural cystic change/emphysema is noted within the lower lungs. Interlobular septal thickening suggests mild pulmonary edema. No pneumatosis, free air or portal venous gas is pre sent. A small amount of abdominal and pelvic ascites is noted. The liver is cirrhotic. No hepatic les ions are identified although sensitivity for detection of hypervascular lesions is diminished on this venous phase exam. There is a large recannulized paraumbilical vein. Gallstones within the gallbladd er are noted. Gallbladder wall thickening is noted. There is mild splenomegaly. The adrenal glands, k idneys and pancreas are unremarkable. There is no biliary or pancreatic ductal dilatation. Moderate w all thickening of the ascending colon, transverse colon and descending colon is noted as well as the proximal sigmoid colon. There is no abscess. Colonic diverticulosis is noted. There is no lymphadenop athy. Left femoral internal fixation is noted. There is extensive atherosclerotic plaque of the abdom inal aorta. The main, left and right portal veins are patent. Old mild L1 compression deformity is pr esent. IMPRESSION: 1. Cirrhosis with sequela of portal hypertension including extensive esophageal varices, large recann ulized paraumbilical vein, small ascites and mild splenomegaly. 2. Moderate wall thickening of the majority of the colon. This favors a nonspecific colitis. Wall thi ckening secondary to portal hypertension could appear similar but is considered less likely. 3. Cholelithiasis. Nonspecific gallbladder wall thickening in the setting of cirrhosis. Electronically signed by: Garcia Worrell M.D. 06/28/2019 7:20 PM
[2019-06-28] MEDS ORDERED: SODIUM CHLORIDE 0.9% 250 ML IV PRN (20:17)
[2019-06-28] MEDS ORDERED: cefTRIAXone SODIUM 1,000 MG/50 ML BAG IV STA (20:19)
[2019-06-28] MEDS ORDERED: OCTREOTIDE ACETATE 50 MCG in SYRINGE 9.5 ML IV STA (20:26)
--- NOTE | 2019-06-28 21:14 | Emergency Department Note ---
Entered by Meagan Coombs acting as a scribe for Raymond Owens DO History of Present Illness General Chief complaint: Abdominal Pain Stated complaint: ABD PAIN Source: patient and RN notes reviewed History of Present Illness Onset (ago): hour(s) 2 Location: abdomen Severity: similar to prior episodes Pain Consistency: + other (sudden) Quality: + other (punching) Relieved By: + none Exacerbated By: + none Associated symptoms: + other (abdominal pain, mouth full of blood); no nausea/vomiting The patient is an 88 year old female presenting to the Emergency Department complaining of sudden abdominal pain staring 2 hours ago. The patient reports that she has upper abdominal pain. She describes this pain as a punching feeling. She states that nothing improves or worsens her pain. She explains that she last had a bowel movement this morning and that it was normal. She denies nausea, vomiting and dysuria. The patients nurse reports that the patient was found in her custodial this morning with a mouth full of blood. She states that the patient has a history of bleeding ulcers. 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 Discussed with IVON Grace from the [facility] who notes that her comforter was covered in bright red blood from her vomiting. She does take Plavix. Home Medications Home Medications Medication Instructions Recorded Confirmed Type Lactobacillus acidophilus 2 cap PO TIDM 06/11/18 06/28/19 History [Acidophilus] acetaminophen [Tylenol] 650 mg PO Q4H PRN 06/11/18 06/28/19 History atorvastatin [Lipitor] 40 mg PO DAILY 06/11/18 06/28/19 History clopidogrel [Plavix] 75 mg PO DAILY 06/11/18 06/28/19 History docusate sodium [Colace] 100 mg PO BID 06/11/18 06/28/19 History ferrous sulfate 325 mg PO BIDM 06/11/18 06/28/19 History glipizide 10 mg PO DAILY 06/11/18 06/28/19 History latanoprost 1 drp OPR HS 06/11/18 06/28/19 History metformin 1,000 mg PO DAILY 06/11/18 06/28/19 History multivitamin,[id number] 1 tab PO DAILY 06/11/18 06/28/19 History [Therems-M] ranitidine HCl [Zantac] 150 mg PO BID 06/11/18 06/28/19 History repaglinide [Prandin] 1 mg PO TID 06/28/19 06/28/19 History Allergies Allergy/AdvReac Type Severity Reaction Status Date / Time aspirin Allergy Severe THROAT Verified 06/28/19 20:21 SWELUIS Past Med/Surg History Medical History GERD (gastroesophageal reflux disease) (Chronic) HTN (hypertension) (Chronic) Dyslipidemia (Chronic) Fracture of left hip (Acute) Iron deficiency anemia (Chronic) DM II (diabetes mellitus, type II), controlled (Chronic) Osteoarthritis (Chronic) Surgical History History of hysterectomy (Resolved) H/O cataract removal with insertion of prosthetic lens (Resolved) H/O carotid endarterectomy (Resolved) Family History Other Family history non-contributory Social History Preferred Language: Citizen Of [place] Communication Ability: Effective 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 and A total of 10 systems reviewed and were otherwise negative Physical Exam Vital Signs Vital Signs - 24 hr 06/28/19 17:55 06/28/19 18:30 06/28/19 19:07 Temperature 37.3 C Temperature Source Oral Sepsis Recent Fever Within 48 Hours No Sepsis New/Unexplained Change in Mental Status No Sepsis Action Taken by Nursing No Action Required Pulse Rate 117 H 111 H 110 H Pulse Rate from SpO2 Sensor 110 H 107 H Respiratory Rate 20 22 12 Respiratory Effort / Characteristics Non-Labored Respiratory Depth Normal Respiratory Pattern Regular Blood Pressure 136/57 L 132/56 L 128/71 Blood Pressure Mean 83 81 90 Pulse Oximetry 98 94 95 Oxygen Delivery Method Room Air Room Air 06/28/19 19:30 06/28/19 20:29 06/28/19 21:00 Temperature Temperature Source Sepsis Recent Fever Within 48 Hours Sepsis New/Unexplained Change in Mental Status Sepsis Action Taken by Nursing Pulse Rate 118 H 115 H 116 H Pulse Rate from SpO2 Sensor 115 H 110 H 113 H Respiratory Rate 16 18 20 Respiratory Effort / Characteristics Respiratory Depth Respiratory Pattern Blood Pressure 112/96 136/50 L 131/62 Blood Pressure Mean 101 78 85 Pulse Oximetry 95 95 94 Oxygen Delivery Method Room Air Room Air GENERAL: Sitting up in bed. Disheveled. Alert, minimal distress holding epigastric region EYE EXAM: normal conjunctiva. OROPHARYNX: no exudate, no erythema, lips, buccal mucosa, and tongue normal and mucous membranes are moist NECK: supple, no nuchal rigidity, no adenopathy, non-tender LUNGS: Clear to auscultation. Normal chest wall mechanics HEART: no murmurs, S1 normal and S2 normal ABDOMEN: Tender to palpation in epigastric region. Abdomen soft, normo-active bowel sounds, no masses, no rebound or guarding. BACK: Back is symmetrical on inspection and there is no deformity, no midline tenderness, no CVA tenderness. Rectal: Dark, tarry stool. Heme positive. SKIN: no rashes and no bruising UPPER EXTREMITIES: upper extremities are grossly normal. LOWER EXTREMITIES: No pitting edema. NEURO EXAM: Normal sensorium, cranial nerves II-XII grossly intact, normal speech, no gross weakness of arms, no gross weakness of legs. Course ED COURSE: Vital signs were reviewed and showed hypertensive. The patients medical record was reviewed The above diagnostic studies were performed and reviewed. ED treatments and interventions as stated above. 1746: The patient was evaluated in room B2. A complete history and physical examination was performed. 2011: I discussed the patients case with Sanjay May LPN who reported that the patient had previous bleeding ulcers back in the . She states that the patient vomited and covered her comforter in bright red blood. I discussed the patients case with her son who is POA. Full code. Patient is taking Plavix. No recent GI visits. 2022: I discussed the patients case with Dr. Gera LESTER GI. He recommended to starting the patient on Octriatide and scoping the patient in 3 hours. 2044: I discussed the patients case with Dr. John LESTER hospitalist. She will evaluate the patient for further management. 2039: Upon reevaluation, I discussed my findings with the patient and she understands and agrees with the treatment plan. Based on the patients age, coexisting illnesses, exam and lab findings the decision to treat as an inpatient was made. The patient remained stable while under my care. The patient will be evaluated for further management. Administered Medications Pantoprazole Sodium 40 mg/ (Dextrose) 100 mls @ 20 mls/hr IV Q5H HAROLDO Stop: 07/28/19 18:14 Last Admin: 06/28/19 19:08 Dose: 20 mls/hr Documented by: [id number] Octreotide Acetate 500 mcg/ (Sodium Chloride) 105 mls @ 10.5 mls/hr IV .Q10H HAROLDO Stop: 07/28/19 20:29 Last Admin: 06/28/19 21:58 Dose: 50 mcg/hr, 10.5 mls/hr Documented by: [id number] Lactated Ringer's (Lr) 1,000 mls @ 80 mls/hr IV .[id number] HAROLDO Stop: 06/29/19 10:27 Last Admin: 06/28/19 22:07 Dose: 80 mls/hr Documented by: [id number] Insulin Aspart (Novolog Flexpen) 0 units SC ACHS HAROLDO Stop: 07/28/19 22:14 Last Admin: 06/28/19 22:42 Dose: 1 units Documented by: [id number] Cosigned by: [id number] Insulin Glargine (Lantus Solostar Pen) 4 units SC BID HAROLDO Stop: 07/28/19 22:14 Last Admin: 06/28/19 22:42 Dose: 4 units Documented by: [id number] Cosigned by: [id number] Ioversol (Optiray 320 100ml) 91 ml IV ONCE PRN PRN Reason: Interaction Checking Stop: 07/02/19 18:52 Last Admin: 06/28/19 18:54 Dose: 91 ml Documented by: [id number] Latanoprost (Xalatan Oph) 1 drops OPR HS HAROLDO Stop: 07/28/19 21:57 Last Admin: 06/28/19 22:40 Dose: 1 drops Documented by: [id number] Discontinued Medications Pantoprazole Sodium 80 mg/ (Dextrose) 120 mls @ 480 mls/hr IV NOW STA Stop: 06/28/19 18:21 Last Infusion: 06/28/19 19:32 Dose: 0 mls/hr Documented by: [id number] Admin: 06/28/19 19:08 Dose: 480 mls/hr Documented by: [id number] Ceftriaxone Sodium (Rocephin) 1,000 mg in 50 mls @ 100 mls/hr IV NOW STA Stop: 06/28/19 20:48 Last Infusion: 06/28/19 21:06 Dose: 0 mls/hr Documented by: [id number] Admin: 06/28/19 20:35 Dose: 100 mls/hr Documented by: [id number] Octreotide Acetate 50 mcg/ (Syringe) 10 mls @ 3 mls/min IV ONE STA Stop: 06/28/19 20:29 Last Admin: 06/28/19 21:05 Dose: 3 mls/min Documented by: [id number] Medical Decision Making Differential Diagnosis Differential diagnosis includes etiologies such as diverticulosis, AVM, coagulo cassandra, colitis, inflammatory bowel disease, malignancy, Adele-Josue tear, esophagitis, peptic ulcer disease, variceal bleed, gastritis, epistaxis, fissure, hemorrhoids, as well as others were entertained. Medical Records Attestation: I reviewed the patient's medical records. Home Medications Current Medication List: was personally reviewed by me Laboratory Data Attestation: I reviewed the patient's lab results. Result diagrams: 06/28/19 18:18 06/28/19 18:18 Lab Results 06/28/19 06/28/19 06/28/19 Range/Units 18:01 18:18 18:18 WBC 9.81 (4.8-10.8) K/uL RBC 3.27 L (4.2-5.4) M/uL Hgb 10.4 L (12.0-16.0) g/dL Hct 31.9 L (37-47) % MCV 97.6 (80-100) fL MCH 31.8 (25-34) pg MCHC 32.6 (32-36) g/dL RDW Std Deviation 50.4 H (36.4-46.3) fL RDW Coeff of Jami 14.1 (11.5-14.5) % Plt Count 105 L (130-400) K/uL MPV 10.2 (7.4-10.4) fL Immature Gran % (Auto) 0.3 % Neut % (Auto) 83.0 % Lymph % (Auto) 6.7 % [place] % (Auto) 6.2 % Eos % (Auto) 3.3 % Baso % (Auto) 0.5 % Immature Gran # (Auto) 0.03 H (0.00-0.02) K/uL Neut # (Auto) 8.14 H (1.4-6.5) K/uL Lymph # (Auto) 0.66 L (1.2-3.4) K/uL [place] # (Auto) 0.61 H (0.11-0.59) K/uL Eos # (Auto) 0.32 (0-0.5) K/uL Baso # (Auto) 0.05 (0-0.2) K/uL PT 12.8 H (9.0-12.0) Seconds INR 1.3 H (0.9-1.1) APTT 27.1 (21.0-31.0) Seconds PTT Ratio 1.0 Sodium (136-145) mmol/L Potassium (3.5-5.1) mmol/L Chloride (98-107) mmol/L Carbon Dioxide (21-32) mmol/L Anion Gap (3-11) BUN (7-18) mg/dl Creatinine (0.6-1.2) mg/dl Est Cr Clr Drug Dosing ml/min Est GFR ( Amer) Est GFR (Non-Af Amer) BUN/Creatinine Ratio (10-20) Glucose (70-99) mg/dl Calcium (8.5-10.1) mg/dl Total Bilirubin (0.2-1) mg/dl AST (15-37) U/L ALT (12-78) U/L Alkaline Phosphatase (45-117) U/L Total Protein (6.4-8.2) gm/dl Albumin (3.4-5.0) gm/dl Globulin (2.5-4.0) gm/dl Albumin/Globulin Ratio (0.9-2) POC Stool Occult Blood Positive A (Negative) Blood Type Antibody Screen Crossmatch 06/28/19 06/28/19 Range/Units 18:18 18:18 WBC (4.8-10.8) K/uL RBC (4.2-5.4) M/uL Hgb (12.0-16.0) g/dL Hct (37-47) % MCV (80-100) fL MCH (25-34) pg MCHC (32-36) g/dL RDW Std Deviation (36.4-46.3) fL RDW Coeff of Jami (11.5-14.5) % Plt Count (130-400) K/uL MPV (7.4-10.4) fL Immature Gran % (Auto) % Neut % (Auto) % Lymph % (Auto) % [place] % (Auto) % Eos % (Auto) % Baso % (Auto) % Immature Gran # (Auto) (0.00-0.02) K/uL Neut # (Auto) (1.4-6.5) K/uL Lymph # (Auto) (1.2-3.4) K/uL [place] # (Auto) (0.11-0.59) K/uL Eos # (Auto) (0-0.5) K/uL Baso # (Auto) (0-0.2) K/uL PT (9.0-12.0) Seconds INR (0.9-1.1) APTT (21.0-31.0) Seconds PTT Ratio Sodium 135 L (136-145) mmol/L Potassium 4.3 (3.5-5.1) mmol/L Chloride 102 (98-107) mmol/L Carbon Dioxide 25 (21-32) mmol/L Anion Gap 8.0 (3-11) BUN 51 H (7-18) mg/dl Creatinine 0.80 (0.6-1.2) mg/dl Est Cr Clr Drug Dosing 38.9 ml/min Est GFR ( Amer) 76.8 Est GFR (Non-Af Amer) 66.3 BUN/Creatinine Ratio 63.5 H (10-20) Glucose 193 H (70-99) mg/dl Calcium 8.9 (8.5-10.1) mg/dl Total Bilirubin 0.8 (0.2-1) mg/dl AST 35 (15-37) U/L ALT 30 (12-78) U/L Alkaline Phosphatase 84 (45-117) U/L Total Protein 5.9 L (6.4-8.2) gm/dl Albumin 2.6 L (3.4-5.0) gm/dl Globulin 3.3 (2.5-4.0) gm/dl Albumin/Globulin Ratio 0.8 L (0.9-2) POC Stool Occult Blood (Negative) Blood Type O Positive Antibody Screen NEGATIVE Crossmatch See Detail Imaging Data Radiologist's Impression: Radiology results as stated below per my review and the radiologist's interpretation: CT OF THE ABDOMEN AND PELVIS WITH CONTRAST CLINICAL HISTORY: GI bleed. COMPARISON STUDY: None. TECHNIQUE: Following IV administration of 91 mL of Optiray-320, axial images of the abdomen and pelvis were obtained from the lung bases to the proximal femurs. Images were reviewed in the axial, sagittal, and coronal planes. IV contrast was administered without complication. Automated exposure control was utilized for the study. A dose lowering technique was utilized adhering to the principles of ALARA. CT DOSE: 424.78 mGy.cm FINDINGS: Imaged portions of the lower chest demonstrate extensive esophageal varices. The heart is moderately enlarged. Subpleural cystic change/emphysema is noted within the lower lungs. Interlobular septal thickening suggests mild pulmonary edema. No pneumatosis, free air or portal venous gas is present. A small amount of abdominal and pelvic ascites is noted. The liver is cirrhotic. No hepatic lesions are identified although sensitivity for detection of hypervascular lesions is diminished on this venous phase exam. There is a large recannulized paraumbilical vein. Gallstones within the gallbladder are noted. Gallbladder wall thickening is noted. There is mild splenomegaly. The adrenal glands, kidneys and pancreas are unremarkable. There is no biliary or pancreatic ductal dilatation. Moderate wall thickening of the ascending colon, transverse colon and descending colon is noted as well as the proximal sigmoid colon. There is no abscess. Colonic diverticulosis is noted. There is no lymphadenopathy. Le ft femoral internal fixation is noted. There is extensive atherosclerotic plaque of the abdominal aorta. The main, left and right portal veins are patent. Old mild L1 compression deformity is present. IMPRESSION: 1. Cirrhosis with sequela of portal hypertension including extensive esophageal varices, large recannulized paraumbilical vein, small ascites and mild splenomegaly. 2. Moderate wall thickening of the majority of the colon. This favors a nonspecific colitis. Wall thickening secondary to portal hypertension could appear similar but is considered less likely. 3. Cholelithiasis. Nonspecific gallbladder wall thickening in the setting of cirrhosis. Electronically signed by: Garcia Worrell M.D. 06/28/2019 7:20 PM ECG Data Attestation: I personally reviewed and interpreted this ECG as follows: Indication: abdominal pain Rate (beats per minute): 113 Rhythm: sinus tachycardia Findings: + other (Normal axis. 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 Patient was brought into the ER. She does take Plavix. IV was established blood work was obtained and showed no significant leukocytosis. Hemoglobin at 10 down from 12.9 in 2018. INR at 1.3. BMP with elevated BUN of 51. LFTs bilirubin was unremarkable. Rectal was dark tarry and heme positive. Patient was typed and crossed for 3 units. Patient was given a Protonix drip and bolus. Patient was given 1 g of Rocephin following a CT which showed cirrhosis and esophageal varices. Discussed with GI and patient was placed on octreotide drip and bolus. Discussed scoping the patient and they note they will try to scope the patient in 12 hours as the patient is stable currently. They will scope emergently if needed. Discussed with GI and updated the patient and family via telephone. Patient was tachycardic throughout her whole stay in the ER. Patient was monitored closely while in the ER. Patient is a full code per family and currently at baseline. Impression & Plan Acute upper GI bleed, Anemia, Thrombocytopenia Critical Care Time Critical Care Time: Yes Total Critical Care Time: 45 I have personally spent 45 minutes of critical care time in the direct management of this patient. This includes bedside care, interpretation of diagnostic studies, and testing, discussion with consultants, patient, and family members, and other required patient management activities. This 45 minutes is in excess of all separately billable procedures. Discharge Plan Visit Data *Final* Discharge Date/Time: 06/28/19 21:30 Chief Complaint: Abdominal Pain Stated Complaint: ABD PAIN ED Provider: Raymond Owens Discharge Problem: Acute upper GI bleed, Anemia, Thrombocytopenia Patient Disposition: Admitted As Inpatient Discharge Instructions Interventions: ED Discharge Assessment Last Done: 06/28/19 21:30 Discharge Problem: Anemia Qualifiers: Anemia type: unspecified type Qualified Code(s): D64.9 - Anemia, unspecified The scribe's documentation has been prepared under my direction and personally reviewed by me in its entirety. I confirm that the note above accurately reflects all work, treatment, procedures, and medical decision making performed by me.
--- NOTE | 2019-06-28 21:15 | History & Physical Report ---
Date of Service June 28, 2019 Assessment & Plan (1) Acute upper GI bleed: Patient with reported hematemesis. Presently tachycardic, BP stable. No further bleeding. She is on daily plavix. No history of NSAID or EtOH use. CT suggestive of cirrhotic liver disease with varices - patient unaware of presence of liver disease. Ddx to include variceal bleed, ulcer, gastritis, esophagitis. She was administered Ceftriaxone x 1 gm for possible SBP -Admit to PCU, continuous cardiac monitoring -CBC q 6 hours - transfuse for ongoing blood loss, symptomatic anemia or Hg < 7. Patient consent is on the chart - has been discussed with son/POA as well -Check liver US with doppler -Maintain 2 large bore PIVs -Protonix gtt -Octreotide gtt -GI consulted from ER - appreciate assistance with this case Present on Admission?: Yes (2) Anemia: As above. Suspect GI losses. Patient denies CP/SOB/palpitations/dizziness -CBC q 6 hours, transfuse for active bleed, Hg < 7 or symptoms -Holding PO iron for now as patient is NPO Present on Admission?: Yes (3) Thrombocytopenia: Platelets = 105, patient with suspected cirrhosis -Continue to monitor Present on Admission?: Yes (4) GERD (gastroesophageal reflux disease): Chronic. -Protonix gtt as above Present on Admission?: Yes (5) HTN (hypertension): Blood pressure stable at present. -Continue to monitor Present on Admission?: Yes (6) Dyslipidemia: Chronic. Stable -Hold Atorvastatin as patient is NPO Present on Admission?: Yes (7) DM II (diabetes mellitus, type II), controlled: Blood sugar mildly elevated at present -Hold PO agents -Lantus 4 u BID, ISS -Continue to monitor Present on Admission?: Yes (8) Cirrhosis: CT suggestive of cirrhosis with varices. Etiology unclear. ?MCKEON in patient with DM, hepatitis. INR=1.3, Itm=862, Alb=2.6 -Check RUQUS with doppler -Check Ammonia level, Tylenol and HCV -GI consultation as above -Octreotide gtt F/E/N - LR at 80mL/hr x 1 liter, monitor electrolytes and replete as needed, NPO for now Ppx - SCDs Code - Full per discussion with patient Dispo - Admit to PCU History of Present Illness Chief Complaint: UGIB Primary Care Provider: MIRELLA Menjivar is a pleasant 88yo C female with history of HTN, HLP, DM and GERD presenting with UGIB. She was sent from the [facility] after being found with hematemesis in her bed. Patient does not recall having any bleeding. At present she denies nausea/vomiting/abdominal pain. She denies hematemesis/coffee ground emeses/melena or hematochezia. She does not drink EtOH or take NSAIDS. She takes Plavix daily. She reports having gastric irritation with bleeding from Aspirin in the past. She was transfused before in April 2017 following acute blood loss anemia in setting of left hip fracture. I spoke with her son, Rod Menjivar(POA - ). He lives in [place] and typically visits her on and takes her out to breakfast and shopping. He states that she was not feeling well this AM. Her friend at the [facility] said that she has been having some epigastric pain, weakness, fatigue and poor appetite for the last few days. Her son states that she barely ate breakfast this AM and didn't feel up for shopping or doing anything else. He states that she is starting to lose her memory and becomes confused occasionally. They are both unaware of any liver disease. ER Course: Ceftriaxone, Octreotide ,Protonix, NSS Allergies Allergy/AdvReac Type Severity Reaction Status Date / Time aspirin Allergy Severe THROAT Verified 06/28/19 20:21 [facility] [place] Home Medications Home Medications Medication Instructions Recorded Confirmed Type Lactobacillus acidophilus 2 cap PO TIDM 06/11/18 06/28/19 History [Acidophilus] acetaminophen [Tylenol] 650 mg PO Q4H PRN 06/11/18 06/28/19 History atorvastatin [Lipitor] 40 mg PO DAILY 06/11/18 06/28/19 History clopidogrel [Plavix] 75 mg PO DAILY 06/11/18 06/28/19 History docusate sodium [Colace] 100 mg PO BID 06/11/18 06/28/19 History ferrous sulfate 325 mg PO BIDM 06/11/18 06/28/19 History glipizide 10 mg PO DAILY 06/11/18 06/28/19 History latanoprost 1 drp OPR HS 06/11/18 06/28/19 History metformin 1,000 mg PO DAILY 06/11/18 06/28/19 History multivitamin,kk-svlf-ooxhnoxv 1 tab PO DAILY 06/11/18 06/28/19 History [Therems-M] ranitidine HCl [Zantac] 150 mg PO BID 06/11/18 06/28/19 History repaglinide [Prandin] 1 mg PO TID 06/28/19 06/28/19 History Past Med/Surg History Medical History GERD (gastroesophageal reflux disease) (Chronic) HTN (hypertension) (Chronic) Dyslipidemia (Chronic) Fracture of left hip (Acute) Iron deficiency anemia (Chronic) DM II (diabetes mellitus, type II), controlled (Chronic) Osteoarthritis (Chronic) Surgical History History of hysterectomy (Resolved) H/O cataract removal with insertion of prosthetic lens (Resolved) H/O carotid endarterectomy (Resolved) Family History Other Family history non-contributory Social History Preferred Language: Tongan Current Living Situation: [facility] Feels Safe at Home: Yes Smoking Status: Never smoker Hx Alcohol Use: No Hx Substance Use: No Review of Systems Review of Systems: All systems reviewed & are unremarkable except as noted in HPI & below Patient denies CP, palpitations, dizziness, lightheadedness, syncope, SOB Patient denies jaundice/icterus, abdominal distention, weight gain, edema Physical Exam Physical Exam: General: patient resting comfortably, NAD, ill in appearance, oriented to self and hospital, confused on date Skin: warm, dry, intact, no rashes or lesions, no pallor HEENT: NC/AT, PERRL, EOMI, anicteric sclera, conjunctiva without injection, external ear normal to inspection and nontender, nares patent, dry mucus membr anes, dentition intact, no oropharyngeal lesions, neck supple, trachea midline, no LAD, no thyromegaly, no JVD Heart: +S1/S2, regular, tachycardic, no m/r/g Lungs: equal air entry bilaterally, no rales/rhonchi/wheezes Abd: +BS, soft, ND, no masses/organomegaly/ascites, mild epigastric tenderness Ext: warm, 2+ pulses in UE/LE bilaterally, no clubbing/cyanosis or edema Neuro: nonfocal, patient AA&O x 4, speech intact, no facial droop, moving all extremities on command with equal strength 5/5 Results & Data Vital Signs (Past 12 Hours) Vital Signs Temp Pulse Resp BP Pulse Ox 06/28/19 20:29 115 H 18 136/50 L 95 06/28/19 19:30 118 H 16 112/96 95 06/28/19 19:07 110 H 12 128/71 95 06/28/19 18:30 111 H 22 132/56 L 94 06/28/19 17:55 37.3 C 117 H 20 136/57 L 98 Laboratory Results Lab Results 06/28/19 06/28/19 06/28/19 Range/Units 18:01 18:18 18:18 WBC 9.81 (4.8-10.8) K/uL RBC 3.27 L (4.2-5.4) M/uL Hgb 10.4 L (12.0-16.0) g/dL Hct 31.9 L (37-47) % MCV 97.6 (80-100) fL MCH 31.8 (25-34) pg MCHC 32.6 (32-36) g/dL RDW Std Deviation 50.4 H (36.4-46.3) fL RDW Coeff of Jami 14.1 (11.5-14.5) % Plt Count 105 L (130-400) K/uL MPV 10.2 (7.4-10.4) fL Immature Gran % (Auto) 0.3 % Neut % (Auto) 83.0 % Lymph % (Auto) 6.7 % Moffat % (Auto) 6.2 % Eos % (Auto) 3.3 % Baso % (Auto) 0.5 % Immature Gran # (Auto) 0.03 H (0.00-0.02) K/uL Neut # (Auto) 8.14 H (1.4-6.5) K/uL Lymph # (Auto) 0.66 L (1.2-3.4) K/uL Moffat # (Auto) 0.61 H (0.11-0.59) K/uL Eos # (Auto) 0.32 (0-0.5) K/uL Baso # (Auto) 0.05 (0-0.2) K/uL PT 12.8 H (9.0-12.0) Seconds INR 1.3 H (0.9-1.1) APTT 27.1 (21.0-31.0) Seconds PTT Ratio 1.0 Sodium (136-145) mmol/L Potassium (3.5-5.1) mmol/L Chloride (98-107) mmol/L Carbon Dioxide (21-32) mmol/L Anion Gap (3-11) BUN (7-18) mg/dl Creatinine (0.6-1.2) mg/dl Est Cr Clr Drug Dosing ml/min Est GFR ( Amer) Est GFR (Non-Af Amer) BUN/Creatinine Ratio (10-20) Glucose (70-99) mg/dl Calcium (8.5-10.1) mg/dl Total Bilirubin (0.2-1) mg/dl AST (15-37) U/L ALT (12-78) U/L Alkaline Phosphatase (45-117) U/L Total Protein (6.4-8.2) gm/dl Albumin (3.4-5.0) gm/dl Globulin (2.5-4.0) gm/dl Albumin/Globulin Ratio (0.9-2) POC Stool Occult Blood Positive A (Negative) Blood Type Antibody Screen Crossmatch 06/28/19 06/28/19 Range/Units 18:18 18:18 WBC (4.8-10.8) K/uL RBC (4.2-5.4) M/uL Hgb (12.0-16.0) g/dL Hct (37-47) % MCV (80-100) fL MCH (25-34) pg MCHC (32-36) g/dL RDW Std Deviation (36.4-46.3) fL RDW Coeff of Jami (11.5-14.5) % Plt Count (130-400) K/uL MPV (7.4-10.4) fL Immature Gran % (Auto) % Neut % (Auto) % Lymph % (Auto) % Moffat % (Auto) % Eos % (Auto) % Baso % (Auto) % Immature Gran # (Auto) (0.00-0.02) K/uL Neut # (Auto) (1.4-6.5) K/uL Lymph # (Auto) (1.2-3.4) K/uL Moffat # (Auto) (0.11-0.59) K/uL Eos # (Auto) (0-0.5) K/uL Baso # (Auto) (0-0.2) K/uL PT (9.0-12.0) Seconds INR (0.9-1.1) APTT (21.0-31.0) Seconds PTT Ratio Sodium 135 L (136-145) mmol/L Potassium 4.3 (3.5-5.1) mmol/L Chloride 102 (98-107) mmol/L Carbon Dioxide 25 (21-32) mmol/L Anion Gap 8.0 (3-11) BUN 51 H (7-18) mg/dl Creatinine 0.80 (0.6-1.2) mg/dl Est Cr Clr Drug Dosing 38.9 ml/min Est GFR ( Amer) 76.8 Est GFR (Non-Af Amer) 66.3 BUN/Creatinine Ratio 63.5 H (10-20) Glucose 193 H (70-99) mg/dl Calcium 8.9 (8.5-10.1) mg/dl Total Bilirubin 0.8 (0.2-1) mg/dl AST 35 (15-37) U/L ALT 30 (12-78) U/L Alkaline Phosphatase 84 (45-117) U/L Total Protein 5.9 L (6.4-8.2) gm/dl Albumin 2.6 L (3.4-5.0) gm/dl Globulin 3.3 (2.5-4.0) gm/dl Albumin/Globulin Ratio 0.8 L (0.9-2) POC Stool Occult Blood (Negative) Blood Type O Positive Antibody Screen NEGATIVE Crossmatch See Detail Diagnostic Findings CT OF THE ABDOMEN AND PELVIS WITH CONTRAST CLINICAL HISTORY: GI bleed. COMPARISON STUDY: None. TECHNIQUE: Following IV administration of 91 mL of Optiray-320, axial images of the abdomen and pelvis were obtained from the lung bases to the proximal femurs. Images were reviewed in the axial, sagittal, and coronal planes. IV contrast was administered without complication. Automated exposure control was utilized for the study. A dose lowering technique was utilized adhering to the principles of ALARA. CT DOSE: 424.78 mGy.cm FINDINGS: Imaged portions of the lower chest demonstrate extensive esophageal varices. The heart is moderately enlarged. Subpleural cystic change/emphysema is noted within the lower lungs. Interlobular septal thickening suggests mild pulmonary edema. No pneumatosis, free air or portal venous gas is present. A small amount of abdominal and pelvic ascites is noted. The liver is cirrhotic. No hepatic lesions are identified although sensitivity for detection of hypervascular lesions is diminished on this venous phase exam. There is a large recannulized paraumbilical vein. Gallstones within the gallbladder are noted. Gallbladder wall thickening is noted. There is mild splenomegaly. The adrenal glands, kidneys and pancreas are unremarkable. There is no biliary or pancreatic ductal dilatation. Moderate wall thickening of the ascending colon, transverse colon and descending colon is noted as well as the proximal sigmoid colon. There is no abscess. Colonic diverticulosis is noted. There is no lymphadenopathy. Left femoral internal fixation is noted. There is extensive atherosclerotic plaque of the abdominal aorta. The main, left and right portal veins are patent. Old mild L1 compression deformity is present. IMPRESSION: 1. Cirrhosis with sequela of portal hypertension including extensive esophageal varices, large recannulized paraumbilical vein, small ascites and mild splenomegaly. 2. Moderate wall thickening of the majority of the colon. This favors a nonspecific colitis. Wall thickening secondary to portal hypertension could appear similar but is considered less likely. 3. Cholelithiasis. Nonspecific gallbladder wall thickening in the setting of cirrhosis. Electronically signed by: Garcia Worrell M.D. 06/28/2019 7:20 PM Dictated: 06/28/191909 Transcribed: 06/28/191909 ECG Additional Comments: The study shows ST at 113 bpm with PACs, KO=825, GZC=552, LEe=120, T wave changes in inferior, lateral leads Code Status & VTE Plan Code Status full VTE Prophylaxis Plan VTE Prophylaxis will be ordered: Yes PG Care Time/CCT Total # of Minutes Spent Total Time Spent with Patient: Total time spent is greater than 50% in coordination of care (as documented) at patient's floor/unit and/or counseling patient: (1) Anemia Anemia type: unspecified type Qualified Code(s): D64.9 - Anemia, unspecified (2) GERD (gastroesophageal reflux disease) Esophagitis presence: without esophagitis Qualified Code(s): K21.9 - Gastro- esophageal reflux disease without esophagitis (3) HTN (hypertension) Hypertension type: essential hypertension Qualified Code(s): I10 - Essential (primary) hypertension (4) DM II (diabetes mellitus, type II), controlled 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
[2019-06-28] MEDS ORDERED: GLUCAGON FOR INJ 1 MG VIAL SQ PRN (21:58)
[2019-06-28] MEDS ORDERED: LACTATED RINGER'S 1,000 ML IV SCH (21:58)
[2019-06-28] MEDS ORDERED: GLUCOSE 10 TABS/TUBE PO PRN (21:58)
[2019-06-28] MEDS ORDERED: DEXTROSE 50% 50 ML SYRINGE IV PRN (21:58)
[2019-06-28] MEDS ORDERED: ONDANSETRON INJ 2 MG/ML 2 ML VIAL IV PRN (21:58)
[2019-06-28] MEDS ORDERED: GLUCOSE 40% GEL 15 GM TUBE PO PRN (21:58)
[2019-06-28] MEDS: OCTREOTIDE ACETATE 500 MCG in 0.9 % SODIUM CHLORIDE 100 ML IV SCH (21:58)
[2019-06-28] MEDS ORDERED: CARBOHYDRATES FOR HYPOGLYCEMIA PO PRN (21:58)
[2019-06-28] MEDS: LATANOPROST 0.005% OP SOLN 2.5 ML BTL OPR SCH (22:40)
[2019-06-28] MEDS: INSULIN ASPART 100 UNITS/ML 3 ML PEN SC SCH (22:42)
[2019-06-28] MEDS: INSULIN GLARGINE SOLOSTAR 100 UNITS/ML 3 ML PEN SC SCH (22:42)
[2019-06-29] MEDS: PANTOprazole 40 MG in DEXTROSE 5% 100 ML IV SCH ×5 (00:05→19:14)
[2019-06-29 00:25] LABS: Hematocrit (blood only) 28.9 % (37-47); Hemoglobin 9.6 g/dL (12.0-16.0); Mean Corpuscular Hemoglobin 31.9 pg (25-34); Mean Corpuscular Hgb Conc 33.2 g/dL (32-36); RDW Coefficient of Variation 14.2 % (11.5-14.5); RDW Standard Deviation 49.8 fL (36.4-46.3); Red Blood Count 3.01 M/uL (4.2-5.4); White Blood Count 6.99 K/uL (4.8-10.8)
[2019-06-29 00:56] LABS: Mean Platelet Volume 10.1 fL (7.4-10.4); Platelet Count 95 K/uL (130-400)
[2019-06-29 00:59] LABS: Basophils # (auto) 0.02 K/uL (0-0.2); Basophils % (auto) 0.3 %; Eosinophils # (auto) 0.27 K/uL (0-0.5); Eosinophils % (auto) 3.9 %; Immature Granulocytes # (auto) 0.01 K/uL (0.00-0.02); Immature Granulocytes % (auto) 0.1 %; Lymphocytes # (auto) 0.98 K/uL (1.2-3.4); Monocytes % (auto) 7.2 %; Neutrophils # (auto) 5.21 K/uL (1.4-6.5); Neutrophils % (auto) 74.5 %; Platelet Estimate Decreased (Normal)
[2019-06-29 06:33] LABS: Hematocrit (blood only) 26.3 % (37-47); Hemoglobin 8.7 g/dL (12.0-16.0); Mean Corpuscular Hemoglobin 31.9 pg (25-34); Mean Corpuscular Hgb Conc 33.1 g/dL (32-36); Mean Corpuscular Volume 96.3 fL (80-100); RDW Coefficient of Variation 14.5 % (11.5-14.5); RDW Standard Deviation 50.8 fL (36.4-46.3); Red Blood Count 2.73 M/uL (4.2-5.4); White Blood Count 5.83 K/uL (4.8-10.8)
[2019-06-29 06:42] LABS: Mean Platelet Volume 10.3 fL (7.4-10.4); Platelet Count 93 K/uL (130-400)
[2019-06-29 06:58] LABS: BUN Creatinine Ratio 65.9 (10-20); Calcium 8.3 mg/dl (8.5-10.1); Creatinine Clr Calc Pharmacy 40.1 ml/min; Est GFR (African American) 88.8; Est GFR (Non-African American) 76.6; Potassium 3.8 mmol/L (3.5-5.1)
--- NOTE | 2019-06-29 07:10 | Ultrasound Report ---
US duplex portal hepatic veins CLINICAL HISTORY: Upper GI bleed. COMPARISON STUDY: Abdomen and pelvis CT 06/28/2019. FINDINGS: The portal vein, splenic vein, and hepatic veins are patent and demonstrate normal directio n of flow. IMPRESSION: No evidence for portal vein thrombosis. Electronically signed by: Juventino Kuo M.D. 06/29/2019 7:09 AM
[2019-06-29 07:12] LABS: Basophils # (auto) 0.02 K/uL (0-0.2); Basophils % (auto) 0.3 %; Eosinophils % (auto) 6.9 %; Immature Granulocytes # (auto) 0.01 K/uL (0.00-0.02); Immature Granulocytes % (auto) 0.2 %; Lymphocytes # (auto) 1.27 K/uL (1.2-3.4); Lymphocytes % (auto) 21.8 %; Monocytes # (auto) 0.54 K/uL (0.11-0.59); Monocytes % (auto) 9.3 %; Neutrophils # (auto) 3.59 K/uL (1.4-6.5); Neutrophils % (auto) 61.5 %
[2019-06-29] MEDS: OCTREOTIDE ACETATE 500 MCG in 0.9 % SODIUM CHLORIDE 100 ML IV SCH ×2 (07:29→16:38)
[2019-06-29] MEDS ORDERED: PNEUMOCOCCAL ADMINISTRATION CHARGE ONE (08:00)
[2019-06-29] MEDS ORDERED: INFLUENZA ADMINISTRATION CHARGE ONE (08:00)
[2019-06-29] MEDS ORDERED: PNEUMOCOCCAL POLYSACCHARIDES 25 MCG/0.5 ML VIAL/SYR IM ONE (08:00)
[2019-06-29] MEDS ORDERED: INFLUENZA VACCINE HIGH DOSE 65+ 0.5 ML SYR IM ONE (08:00)
[2019-06-29] MEDS: INSULIN ASPART 100 UNITS/ML 3 ML PEN SC SCH ×4 (08:15→21:29)
[2019-06-29] MEDS: INSULIN GLARGINE SOLOSTAR 100 UNITS/ML 3 ML PEN SC SCH ×2 (08:15→21:29)
[2019-06-29] MEDS: cefTRIAXone SODIUM 1,000 MG in DEXTROSE 5% 50 ML IV SCH (08:15)
--- NOTE | 2019-06-29 12:03 | Gastrointestinal Consultation ---
Date of Consultation June 29, 2019 Assessment & Plan (1) Cirrhosis: (2) Acute upper GI bleed: (3) Anemia: Pt is a 88 y/o female resident of the [facility], admitted last night after found to have hematemesis. On eval, found to have acute anemia w also evidence of cirrhosis, portal HTN, varices, thrombocytopenia and mild coagulopathy. Hx of bleeding gastric ulcers. She had been on Plavix. VS stable and overnight she hasn't had any more recurrence of hematemesis. Stool semi formed and black this AM. Abd exam benign. - Continue PPI gtt, Octreotide gtt, Ceftriaxone IV for now - I had thorough discussion w pt and son (EVELIN Menjivar) about possible endoscopic evaluation to further eval and r/o source of GI bleeding (DDx: PUD, variceal bleed, AVMs). Pt and son prefer conservative measures at this time. Pt is a Full code currently. Son is a risk modeler and expressed understanding that d ue to pt's advanced age and her comorbidities, if she codes and need recuscitation, it 'may be futile'. He was going to discuss w his sisters about pt's code status. - Will monitor for further s/s of GI bleeding and defer endoscopies per pt and family requests at this time. Supervising Physician Co-Signing Physician Notes I have personally seen and examined the patient with JAMAL White. Her note reflects my exam and findings. I agree with her impression and plan. Family wishes conservative management without invasive testing. Stop octreotide in am if no signs of significant active bleeding. Gianluca Duenas M.D. History of Present Illness Reason for Consultation: UGI bleed Requesting Physician: Dr. Riddhi Benavidez Attending Physician: Dr. Gianluca Duenas History of Present Illness Pt is a 88 y/o female resident of [facility] who was brought to the ED after found to have hematemesis in her bed. She is on Plavix. She was started on Octreotide & Ceftriaxone for SBP prophylaxis, PPI bolus and gtt. On eval, VS is stable, H/H 04/30 (1 yr ago Hgb was 12). Plt 90s ,INR 1.3. CT abd/pelvis did show possible cirrhosis with sequela of portal hypertension including extensive esophageal varices, large recannulized paraumbilical vein, small ascites and mild splenomegaly. There's also wall thickening of colon ? non specific colitis vs secondary to portal HNT, + cholelithiasis. No signs of portal vein thrombosis on u/s. LFTs are normal. From report, she is usually confused at night, however this AM she is oriented x 3 though appears fatigued. She is able to inform me she had hx of bleeding gastric ulcers. Overnight no more hematemesis. She did have black semi formed stool this AM. She denies any abd pain, n/v. Allergies Allergy/AdvReac Type Severity Reaction Status Date / Time aspirin Allergy Severe THROAT Verified 06/28/19 20:21 [facility] Home Medications Home Medications Medication Instructions Recorded Confirmed Type Lactobacillus acidophilus 2 cap PO TIDM 06/11/18 06/28/19 History [Acidophilus] acetaminophen [Tylenol] 650 mg PO Q4H PRN 06/11/18 06/28/19 History atorvastatin [Lipitor] 40 mg PO DAILY 06/11/18 06/28/19 History clopidogrel [Plavix] 75 mg PO DAILY 06/11/18 06/28/19 History docusate sodium [Colace] 100 mg PO BID 06/11/18 06/28/19 History ferrous sulfate 325 mg PO BIDM 06/11/18 06/28/19 History glipizide 10 mg PO DAILY 06/11/18 06/28/19 History latanoprost 1 drp OPR HS 06/11/18 06/28/19 History metformin 1,000 mg PO DAILY 06/11/18 06/28/19 History multivitamin,ly-xsko-totnaisy 1 tab PO DAILY 06/11/18 06/28/19 History [Therems-M] ranitidine HCl [Zantac] 150 mg PO BID 06/11/18 06/28/19 History repaglinide [Prandin] 1 mg PO TID 06/28/19 06/28/19 History Patient History Medical History GERD (gastroesophageal reflux disease) (Chronic) HTN (hypertension) (Chronic) Dyslipidemia (Chronic) Fracture of left hip (Acute) Iron deficiency anemia (Chronic) DM II (diabetes mellitus, type II), controlled (Chronic) Osteoarthritis (Chronic) Surgical History History of hysterectomy (Resolved) H/O cataract removal with insertion of prosthetic lens (Resolved) H/O carotid endarterectomy (Resolved) Family History Other Family history non-contributory Social History Preferred Language: Sammarinese Communication Ability: Effective Mammalogist Required: No Beliefs That Will Affect Care: None Current Living Situation: [facility] Current Living Situation Comment: Lives at [facility] Feels Safe at Home: Yes Smoking Status: Unknown if ever smoked Review of Systems Review of Systems: Limited ROS as noted above Physical Exam Constitutional: + thin, cooperative, comfortable and + lethargic Eyes: PERRL, conjunctivae normal, anicteric sclerae ENMT: external ear and nose normal, oropharynx normal Respiratory: no respiratory distress and does not use accessory muscles Auscultation: + diminished lung sounds Cardiovascular: RRR, no murmur, no edema Gastrointestinal (Abdomen): normal bowel sounds, soft, nontender, no hepatosplenomegaly Skin: no rashes, warm and dry no jaundice Neurologic: Weak, oriented x 3 Lymphatic: no lymphedema Results & Data Vital Signs (Past 12 Hours) Vital Signs Temp Pulse Resp BP Pulse Ox 06/29/19 07:06 36.7 C 81 17 104/58 L 93 06/29/19 04:40 36.9 C 92 H 19 108/56 L 94 06/29/19 00:22 37.5 C 98 H 17 120/64 93 (1) Anemia Anemia type: unspecified type Qualified Code(s): D64.9 - Anemia, unspecified (2) Cirrhosis Hepatic cirrhosis type: unspecified hepatic cirrhosis
[2019-06-29 12:18] LABS: Hematocrit (blood only) 26.7 % (37-47); Hemoglobin 8.8 g/dL (12.0-16.0); Mean Corpuscular Hemoglobin 31.9 pg (25-34); Mean Corpuscular Volume 96.7 fL (80-100); RDW Coefficient of Variation 14.6 % (11.5-14.5); RDW Standard Deviation 51.5 fL (36.4-46.3); Red Blood Count 2.76 M/uL (4.2-5.4); White Blood Count 5.63 K/uL (4.8-10.8)
[2019-06-29 12:27] LABS: Mean Platelet Volume 10.4 fL (7.4-10.4); Platelet Count 96 K/uL (130-400)
[2019-06-29 12:52] LABS: Basophils # (auto) 0.02 K/uL (0-0.2); Basophils % (auto) 0.4 %; Eosinophils # (auto) 0.34 K/uL (0-0.5); Immature Granulocytes # (auto) 0.01 K/uL (0.00-0.02); Immature Granulocytes % (auto) 0.2 %; Lymphocytes # (auto) 0.97 K/uL (1.2-3.4); Lymphocytes % (auto) 17.2 %; Monocytes % (auto) 7.1 %; Neutrophils # (auto) 3.89 K/uL (1.4-6.5); Neutrophils % (auto) 69.1 %
--- NOTE | 2019-06-29 18:52 | Family Medicine Progress Note ---
Date of Service June 29, 2019 Assessment & Plan (1) Cirrhosis: Adeola Menjivar is an 88 year old woman with a past medical history of DMII, HTN, HLD here for hematemesis. Upper GI bleed/Hematemesis - Possible bleeding esophageal varices Acute blood loss anemia Patient presented initially with hematemesis, made NPO started on protonix drip and admitted to Tele CT scan showing new cirrhosis and portal hypertension with large esophageal varices. Patient was a full code, GI consulted for upper endoscopy After discussion with son (Power of Night Court Magistrate) and patient decision was made to forgo scope and watchful waiting Still would like to be transfused if indicated, patient and son aware that forgoing intervention could lead to in the event of a variceal bleed Hemoglobin stabilized no evidence of hematochezia, no further hematemesis Will continue to check hemoglobin q12 Started patient on clear diet Will advance if no further bleeding in am Cirrhosis Unknown cause Hep B/C negative, no tylenol history, no EtOH history or any hepatic history Very possibly 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 Follow up outpatient when stable Disposition Patient is frail, will order PT/OT for evaluation DVT PPx: Contraindicated F/E/N: Clear liquids will advance if H and H normal in AM DIspo tele (2) Acute upper GI bleed: (3) Thrombocytopenia: (4) Anemia: (5) GERD (gastroesophageal reflux disease): (6) HTN (hypertension): (7) Dyslipidemia: (8) DM II (diabetes mellitus, type II), controlled: Supervising Physician Co-Signing Physician Notes Resident Physician Supervision Note: I independently interviewed and examined the patient and verified the oleary history and physical, reviewed labs and image studies, discussed the case with the resident Dr. Luz and agree with the findings and care plan. Called by nursing - nurse aid noted vaginal rash/thickening o/e - very tender perineal area. interlabial fold skin/mucosa - large ulcerations across the whole surface extending upto the anal sphincter. Unable to assess further due to pain. Bacterial and HSV cultures drawn. Will have harness tier evaluate in am. add valtrex Subjective Adeola Menjivar is a poor historian, does not remember any bleeding or hematemesis. Patient tells me she feels well. No pain currently, no shortness of breath, breathing easily. Not oriented to time or situation, defers all medical questions to her son who is present. Patient is a full code, after discussion with patient and POA decision was made to transition to DNR/DNI. They do not wish to go through with any procedures at this time and would prefer to just wait and watch and treat supportively. Review of Systems Review of Systems: All systems reviewed & are unremarkable except as noted in HPI & below Physical Exam Physical Exam: Constitutional: 88 year old woman appears stated age, no apparent distress Eyes: Anicteric sclerae, EOMMI, no conjunctival pallor ENMT: Oropharynx clear, no evidence of bleeding, no wounds, cuts, abrasions. Respiratory: Lungs clear to auscultation Cardiovascular: heart sounds dual, no M/r/s/g, no evidence of edema GI: SOft nontender, normal bowel sounds Skin: No abnormalities detected. Results & Data Vital Signs (Past 12 Hours) Vital Signs Temp Pulse Resp BP Pulse Ox 06/29/19 15:16 36.8 C 81 18 97/57 L 92 06/29/19 11:06 36.5 C 86 16 102/46 L 91 06/29/19 07:06 36.7 C 81 17 104/58 L 93 PG Care Time/CCT Total # of Minutes Spent Total Time Spent with Patient: Total time spent is greater than 50% in coordination of care (as documented) at patient's floor/unit and/or counseling patient: Resident Activity Tracking Resident Involvement: Resident Care Provided Care Provided: Adult Hospital Medicine (1) Anemia Anemia type: unspecified type Qualified Code(s): D64.9 - Anemia, unspecified (2) Cirrhosis Hepatic cirrhosis type: unspecified hepatic cirrhosis (3) DM II (diabetes mellitus, type II), controlled Diabetes mellitus complication status: without complication Diabetes mellitus tenon machine operator insulin use: without fdc use Qualified Code(s): E11.9 - Type 2 diabetes mellitus without complications (4) GERD (gastroesophageal reflux disease) Esophagitis presence: without esophagitis Qualified Code(s): K21.9 - Gastro- esophageal reflux disease without esophagitis (5) HTN (hypertension) Hypertension type: essential hypertension Qualified Code(s): I10 - Essential (primary) hypertension
[2019-06-29 19:12] LABS: Hemoglobin 9.1 g/dL (12.0-16.0); Mean Corpuscular Hemoglobin 32.2 pg (25-34); Mean Corpuscular Hgb Conc 33.7 g/dL (32-36); Mean Corpuscular Volume 95.4 fL (80-100); RDW Coefficient of Variation 14.6 % (11.5-14.5); RDW Standard Deviation 50.3 fL (36.4-46.3); Red Blood Count 2.83 M/uL (4.2-5.4); White Blood Count 5.47 K/uL (4.8-10.8)
[2019-06-29 19:31] LABS: Basophils # (auto) 0.02 K/uL (0-0.2); Basophils % (auto) 0.4 %; Eosinophils # (auto) 0.47 K/uL (0-0.5); Eosinophils % (auto) 8.6 %; Immature Granulocytes # (auto) 0.01 K/uL (0.00-0.02); Immature Granulocytes % (auto) 0.2 %; Lymphocytes # (auto) 1.25 K/uL (1.2-3.4); Lymphocytes % (auto) 22.9 %; Mean Platelet Volume 9.7 fL (7.4-10.4); Monocytes # (auto) 0.53 K/uL (0.11-0.59); Monocytes % (auto) 9.7 %; Neutrophils # (auto) 3.19 K/uL (1.4-6.5); Neutrophils % (auto) 58.2 %; Platelet Count 94 K/uL (130-400)
[2019-06-29] MEDS: LATANOPROST 0.005% OP SOLN 2.5 ML BTL OPR SCH (21:32)
[2019-06-30] MEDS: PANTOprazole 40 MG in DEXTROSE 5% 100 ML IV SCH ×5 (00:18→20:38)
[2019-06-30] MEDS: OCTREOTIDE ACETATE 500 MCG in 0.9 % SODIUM CHLORIDE 100 ML IV SCH ×2 (03:27→13:29)
[2019-06-30 07:45] LABS: Albumin Level 2.4 gm/dl (3.4-5.0); Bilirubin Direct 0.2 mg/dl (0-0.2); Bilirubin,Total 0.7 mg/dl (0.2-1); Total Protein 5.5 gm/dl (6.4-8.2)
[2019-06-30] MEDS: cefTRIAXone SODIUM 1,000 MG in DEXTROSE 5% 50 ML IV SCH (08:21)
[2019-06-30] MEDS: INSULIN GLARGINE SOLOSTAR 100 UNITS/ML 3 ML PEN SC SCH ×2 (08:21→20:48)
[2019-06-30] MEDS: INSULIN ASPART 100 UNITS/ML 3 ML PEN SC SCH ×4 (08:21→20:48)
[2019-06-30 08:52] LABS: Hematocrit (blood only) 28.5 % (37-47); Hemoglobin 9.3 g/dL (12.0-16.0); Mean Corpuscular Hemoglobin 32.1 pg (25-34); Mean Corpuscular Hgb Conc 32.6 g/dL (32-36); Mean Corpuscular Volume 98.3 fL (80-100); Mean Platelet Volume 10.6 fL (7.4-10.4); Platelet Count 96 K/uL (130-400); RDW Coefficient of Variation 14.7 % (11.5-14.5); RDW Standard Deviation 52.4 fL (36.4-46.3); White Blood Count 5.02 K/uL (4.8-10.8)
[2019-06-30 09:17] LABS: BUN Creatinine Ratio 30.9 (10-20); Calcium 8.1 mg/dl (8.5-10.1); Creatinine Clr Calc Pharmacy 47.5 ml/min; Est GFR (African American) 92.1; Est GFR (Non-African American) 79.4; Potassium 3.5 mmol/L (3.5-5.1)
--- NOTE | 2019-06-30 09:18 | Family Medicine Progress Note ---
Date of Service June 30, 2019 Assessment & Plan (1) Cirrhosis: Adeola Menjivar is an 88 year old woman with a past medical history of DMII, HTN, HLD here for hematemesis. Upper GI bleed/Hematemesis - Possible bleeding esophageal varices Acute blood loss anemia Patient presented initially with hematemesis, CT scan showing new cirrhosis and portal hypertension with large esophageal varices. Patient was a full code, GI consulted for upper endoscopy, but after discussion with son (Power of Fire Department Marine Engineer) and patient decision was made to forgo scope and watchful waiting h/h stable. 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 if not outpatient. Disposition Patient is frail, will order PT/OT for evaluation DVT PPx: Contraindicated F/E/N: full liquid DIspo tele (2) Acute upper GI bleed: (3) Thrombocytopenia: (4) Anemia: (5) GERD (gastroesophageal reflux disease): (6) HTN (hypertension): (7) Dyslipidemia: (8) DM II (diabetes mellitus, type II), controlled: Supervising Physician Co-Signing Physician Notes Resident Physician Supervision Note: I independently interviewed and examined the patient and verified the oleary history and physical, reviewed labs and image studies, discussed the case with the resident Dr. Box and agree with the findings and care plan. Subjective Adeola Menjivar is drowsy this morning and sleepy, but easily arousable and pleasant. She notes no acute complaints. No chest pain, shortness of breath, nausea, vomiting, diarrhea, abdominal pain. No acute events reported overnight such as hematemesis. Review of Systems Review of Systems: As noted in the HPI Physical Exam Constitutional: + thin and comfortable; no acute distress sleepy, easily arouses Eyes: EOM intact bilaterally; no scleral abnormality Neck: normal visual inspection and trachea midline Respiratory: normal respiratory effort; no respiratory distress, no labored breathing and does not use accessory muscles Auscultation: lungs clear to auscultation bilaterally Cardiovascular: Rate/Rhythm: regular rate and regular rhythm Heart Sounds: + murmur (Systolic ejection best beards at 2nd left IC ) Extremities: no pedal edema Gastrointestinal (Abdomen): Inspection/Auscultation: abdomen not distended Percussion/Palpation: abdomen soft; abdomen nontender, no guarding and abdomen not rigid Musculoskeletal: Head/Neck/Chest: + head abnormal to inspection, normocephalic and head atraumatic Neurologic: moves all extremities and awake; no focal motor deficits Psychiatric: A+Ox3, euthymic affect sleepy but easily arousable Results & Data Vital Signs (Past 12 Hours) Vital Signs Temp Pulse Pulse Resp BP BP Pulse Ox 06/30/19 07:19 36.6 C 75 18 117/64 100 06/30/19 04:54 36.5 C 83 18 106/52 L 94 06/29/19 23:17 36.3 C L 80 18 110/49 L 94 Laboratory Results Laboratory Results - last 24 hr 06/29/19 06/29/19 06/29/19 11:54 11:57 15:50 WBC 5.63 RBC 2.76 L Hgb 8.8 L Hct 26.7 L MCV 96.7 MCH 31.9 MCHC 33.0 RDW Std Deviation 51.5 H RDW Coeff of Jami 14.6 H Plt Count 96 L MPV 10.4 Immature Gran % (Auto) 0.2 Neut % (Auto) 69.1 Lymph % (Auto) 17.2 Walker % (Auto) 7.1 Eos % (Auto) 6.0 Baso % (Auto) 0.4 Immature Gran # (Auto) 0.01 Neut # (Auto) 3.89 Lymph # (Auto) 0.97 L Walker # (Auto) 0.40 Eos # (Auto) 0.34 Baso # (Auto) 0.02 Sodium Potassium Chloride Carbon Dioxide Anion Gap BUN Creatinine Est Cr Clr Drug Dosing Est GFR ( Amer) Est GFR (Non-Af Amer) BUN/Creatinine Ratio Glucose POC Glucose 167 H Calcium Total Bilirubin Direct Bilirubin AST ALT Alkaline Phosphatase Total Protein Albumin HSV Culture Source Pending Herpes Simplex Culture Pending 06/29/19 06/29/19 06/29/19 16:31 19:02 20:57 WBC 5.47 RBC 2.83 L Hgb 9.1 L Hct 27.0 L MCV 95.4 MCH 32.2 MCHC 33.7 RDW Std Deviation 50.3 H RDW Coeff of Jami 14.6 H Plt Count 94 L MPV 9.7 Immature Gran % (Auto) 0.2 Neut % (Auto) 58.2 Lymph % (Auto) 22.9 Walker % (Auto) 9.7 Eos % (Auto) 8.6 Baso % (Auto) 0.4 Immature Gran # (Auto) 0.01 Neut # (Auto) 3.19 Lymph # (Auto) 1.25 Walker # (Auto) 0.53 Eos # (Auto) 0.47 Baso # (Auto) 0.02 Sodium Potassium Chloride Carbon Dioxide Anion Gap BUN Creatinine Est Cr Clr Drug Dosing Est GFR ( Amer) Est GFR (Non-Af Amer) BUN/Creatinine Ratio Glucose POC Glucose 119 H 198 H Calcium Total Bilirubin Direct Bilirubin AST ALT Alkaline Phosphatase Total Protein Albumin HSV Culture Source Herpes Simplex Culture 06/30/19 06/30/19 06/30/19 06:38 06:49 06:49 WBC 5.02 RBC 2.90 L Hgb 9.3 L Hct 28.5 L MCV 98.3 MCH 32.1 MCHC 32.6 RDW Std Deviation 52.4 H RDW Coeff of Jami 14.7 H Plt Count 96 L MPV 10.6 H Immature Gran % (Auto) 0.4 Neut % (Auto) 61.7 Lymph % (Auto) 20.3 Walker % (Auto) 9.0 Eos % (Auto) 8.4 Baso % (Auto) 0.2 Immature Gran # (Auto) 0.02 Neut # (Auto) 3.10 Lymph # (Auto) 1.02 L Walker # (Auto) 0.45 Eos # (Auto) 0.42 Baso # (Auto) 0.01 Sodium 138 Potassium 3.5 Chloride 106 Carbon Dioxide 26 Anion Gap 5.0 BUN 20 H D Creatinine 0.66 Est Cr Clr Drug Dosing 47.5 Est GFR ( Amer) 92.1 Est GFR (Non-Af Amer) 79.4 BUN/Creatinine Ratio 30.9 H Glucose 123 H POC Glucose Calcium 8.1 L Total Bilirubin 0.7 Direct Bilirubin 0.2 AST 38 H ALT 26 Alkaline Phosphatase 75 Total Protein 5.5 L Albumin 2.4 L HSV Culture Source Herpes Simplex Culture 06/30/19 07:35 WBC RBC Hgb Hct MCV MCH MCHC RDW Std Deviation RDW Coeff of Jami Plt Count MPV Immature Gran % (Auto) Neut % (Auto) Lymph % (Auto) Walker % (Auto) Eos % (Auto) Baso % (Auto) Immature Gran # (Auto) Neut # (Auto) Lymph # (Auto) Walker # (Auto) Eos # (Auto) Baso # (Auto) Sodium Potassium Chloride Carbon Dioxide Anion Gap BUN Creatinine Est Cr Clr Drug Dosing Est GFR ( Amer) Est GFR (Non-Af Amer) BUN/Creatinine Ratio Glucose POC Glucose 119 H Calcium Total Bilirubin Direct Bilirubin AST ALT Alkaline Phosphatase Total Protein Albumin HSV Culture Source Herpes Simplex Culture Medications Administered Pantoprazole Sodium 40 mg/ (Dextrose) 100 mls @ 20 mls/hr IV Q5H [facility] Stop: 07/28/19 18:14 Last Admin: 06/30/19 05:07 Dose: 20 mls/hr Documented by: [id number] Infusion: 06/30/19 05:07 Dose: 20 mls/hr Documented by: [id number] Admin: 06/30/19 00:18 Dose: 20 mls/hr Documented by: [id number] Infusion: 06/30/19 00:14 Dose: 20 mls/hr Documented by: [id number] Admin: 06/29/19 19:14 Dose: 20 mls/hr Documented by: [id number] Infusion: 06/29/19 19:00 Dose: 20 mls/hr Documented by: [id number] Admin: 06/29/19 14:00 Dose: 20 mls/hr Documented by: [id number] Infusion: 06/29/19 14:00 Dose: 20 mls/hr Documented by: [id number] Admin: 06/29/19 09:23 Dose: 20 mls/hr Documented by: [id number] Infusion: 06/29/19 09:20 Dose: 20 mls/hr Documented by: [id number] Admin: 06/29/19 04:20 Dose: 20 mls/hr Documented by: [id number] Infusion: 06/29/19 04:20 Dose: 20 mls/hr Documented by: [id number] Admin: 06/29/19 00:05 Dose: 20 mls/hr Documented by: [id number] Infusion: 06/29/19 00:05 Dose: 20 mls/hr Documented by: [id number] Admin: 06/28/19 19:08 Dose: 20 mls/hr Documented by: [id number] Octreotide Acetate 500 mcg/ (Sodium Chloride) 105 mls @ 10.5 mls/hr IV .Q10H [facility] Stop: 07/28/19 20:29 Last Admin: 06/30/19 03:27 Dose: 50 mcg/hr, 10.5 mls/hr Documented by: [id number] Infusion: 06/30/19 02:38 Dose: 50 mcg/hr, 10.5 mls/hr Documented by: [id number] Admin: 06/29/19 16:38 Dose: 50 mcg/hr, 10.5 mls/hr Documented by: [id number] Infusion: 06/29/19 16:38 Dose: 50 mcg/hr, 10.5 mls/hr Documented by: [id number] Admin: 06/29/19 07:29 Dose: 50 mcg/hr, 10.5 mls/hr Documented by: [id number] Infusion: 06/29/19 07:29 Dose: 50 mcg/hr, 10.5 mls/hr Documented by: [id number] Admin: 06/28/19 21:58 Dose: 50 mcg/hr, 10.5 mls/hr Documented by: [id number] Ceftriaxone Sodium 1,000 mg/ (Dextrose) 50 mls @ 100 mls/hr IV Q24H [facility]; Protocol Stop: 07/09/19 07:59 Last Infusion: 06/30/19 08:59 Dose: 0 mls/hr Documented by: [id number] Admin: 06/30/19 08:21 Dose: 100 mls/hr Documented by: [id number] Infusion: 06/29/19 09:21 Dose: 0 mls/hr Documented by: [id number] Admin: 06/29/19 08:15 Dose: 100 mls/hr Documented by: [id number] Insulin Aspart (Novolog Flexpen) 0 units SC ACHS [facility] Stop: 07/28/19 22:14 Last Admin: 06/30/19 08:21 Dose: Not Given Documented by: [id number] Cosigned by: [id number] Admin: 06/29/19 21:29 Dose: 1 units Documented by: [id number] Cosigned by: [id number] Admin: 06/29/19 16:38 Dose: Not Given Documented by: [id number] Cosigned by: [id number] Admin: 06/29/19 12:30 Dose: Not Given Documented by: [id number] Cosigned by: [id number] Admin: 06/29/19 08:15 Dose: 1 units Documented by: [id number] Cosigned by: [id number] Admin: 06/28/19 22:42 Dose: 1 units Documented by: [id number] Cosigned by: [id number] Insulin Glargine (Lantus Solostar Pen) 4 units SC BID [facility] Stop: 07/28/19 22:14 Last Admin: 06/30/19 08:21 Dose: 4 units Documented by: [id number] Cosigned by: [id number] Admin: 06/29/19 21:29 Dose: 4 units Documented by: [id number] Cosigned by: [id number] Admin: 06/29/19 08:15 Dose: 4 units Documented by: [id number] Cosigned by: [id number] Admin: 06/28/19 22:42 Dose: 4 units Documented by: [id number] Cosigned by: [id number] Ioversol (Optiray 320 100ml) 91 ml IV ONCE PRN PRN Reason: Interaction Checking Stop: 07/02/19 18:52 Last Admin: 06/28/19 18:54 Dose: 91 ml Documented by: [id number] Latanoprost (Xalatan Oph) 1 drops OPR HS [facility] Stop: 07/28/19 21:57 Last Admin: 06/29/19 21:32 Dose: 1 drops Documented by: [id number] Admin: 06/28/19 22:40 Dose: 1 drops Documented by: [id number] PG Care Time/CCT Total # of Minutes Spent Total Time Spent with Patient: Total time spent is greater than 50% in coordination of care (as documented) at patient's floor/unit and/or counseling patient: Resident Activity Tracking Resident Involvement: Resident Care Provided Care Provided: Adult Hospital Medicine (1) Anemia Anemia type: unspecified type Qualified Code(s): D64.9 - Anemia, unspecified (2) Cirrhosis Hepatic cirrhosis type: unspecified hepatic cirrhosis (3) DM II (diabetes mellitus, type II), controlled Diabetes mellitus complication status: without complication Diabetes mellitus retirement insulin use: without retirement use Qualified Code(s): E11.9 - Type 2 diabetes mellitus without complications (4) GERD (gastroesophageal reflux disease) Esophagitis presence: without esophagitis Qualified Code(s): K21.9 - Gastro- esophageal reflux disease without esophagitis (5) HTN (hypertension) Hypertension type: essential hypertension Qualified Code(s): I10 - Essential (primary) hypertension
[2019-06-30 09:25] LABS: Basophils # (auto) 0.01 K/uL (0-0.2); Basophils % (auto) 0.2 %; Eosinophils # (auto) 0.42 K/uL (0-0.5); Eosinophils % (auto) 8.4 %; Immature Granulocytes # (auto) 0.02 K/uL (0.00-0.02); Immature Granulocytes % (auto) 0.4 %; Lymphocytes # (auto) 1.02 K/uL (1.2-3.4); Lymphocytes % (auto) 20.3 %; Monocytes # (auto) 0.45 K/uL (0.11-0.59); Neutrophils % (auto) 61.7 %
[2019-06-30] MEDS: VALACYCLOVIR HCL 500 MG TABLET PO SCH ×2 (10:35→20:49)
[2019-06-30] MEDS: LATANOPROST 0.005% OP SOLN 2.5 ML BTL OPR SCH (20:49)
[2019-07-01] MEDS: OCTREOTIDE ACETATE 500 MCG in 0.9 % SODIUM CHLORIDE 100 ML IV SCH ×2 (00:08→08:49)
[2019-07-01] MEDS: PANTOprazole 40 MG in DEXTROSE 5% 100 ML IV SCH ×5 (01:10→20:55)
--- NOTE | 2019-07-01 07:27 | Family Medicine Progress Note ---
Date of Service July 01, 2019 Assessment & Plan (1) Cirrhosis: Adeola Menjivar is an 88 year old woman with a past medical history of DMII, HTN, HLD here for hematemesis. Upper GI bleed/Hematemesis - Possible bleeding esophageal varices Acute blood loss anemia Patient presented initially with hematemesis, CT scan showing new cirrhosis and portal hypertension with large esophageal varices. Patient was a full code, GI consulted for upper endoscopy, but after discussion with son (Power of Software Engineer Backend) and patient decision was made to forgo scope and watchful waiting h/h stable. 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 type II diabetes mellitus Follow up outpatient when stable Vaginal ulceration viral/bacterial cultures taken Valtrex started Disposition Patient is frail, PT/OT for evaluation ordered DVT PPx: Contraindicated F/E/N: full liquid DIspo transfered to med/surg (2) Acute upper GI bleed: (3) Thrombocytopenia: (4) Anemia: (5) GERD (gastroesophageal reflux disease): (6) HTN (hypertension): (7) Dyslipidemia: (8) DM II (diabetes mellitus, type II), controlled: Supervising Physician Co-Signing Physician Notes Resident Physician Supervision Note: I independently interviewed and examined the patient and verified the oleary history and physical, reviewed labs and image studies, discussed the case with the resident Dr. Box and agree with the findings and care plan. Subjective Adeola Menjivar is drowsy this morning and sleepy, but easily arousable and pleasant. She notes no acute complaints. No chest pain, shortness of breath, nausea, vomiting, diarrhea, abdominal pain. No acute events reported overnight such as hematemesis. Physical Exam Constitutional: + thin and comfortable; no acute distress Eyes: EOM intact bilaterally; no scleral abnormality Neck: normal visual inspection and trachea midline Respiratory: normal respiratory effort; no respiratory distress, no labored breathing and does not use accessory muscles Auscultation: lungs clear to auscultation bilaterally Cardiovascular: Rate/Rhythm: regular rate and regular rhythm Heart Sounds: + murmur (Systolic ejection best beards at 2nd left IC ) Gastrointestinal (Abdomen): Inspection/Auscultation: abdomen not distended Percussion/Palpation: abdomen soft; abdomen nontender, no guarding and abdomen not rigid Musculoskeletal: Head/Neck/Chest: + head abnormal to inspection, normocephalic and head atraumatic Neurologic: moves all extremities and awake; no focal motor deficits Psychiatric: A+Ox3, euthymic affect Results & Data Vital Signs (Past 12 Hours) Vital Signs Temp Pulse Resp BP BP Pulse Ox 07/01/19 04:09 37.1 C 78 20 114/55 L 95 06/30/19 23:09 36.8 C 75 20 108/65 96 Laboratory Results Laboratory Results - last 24 hr 06/30/19 06/30/19 06/30/19 11:30 16:26 20:43 POC Glucose 183 H 206 H 268 H 07/01/19 07:41 POC Glucose 194 H Medications Administered Pantoprazole Sodium 40 mg/ (Dextrose) 100 mls @ 20 mls/hr IV Q5H [facility] Stop: 07/28/19 18:14 Last Admin: 07/01/19 10:47 Dose: 20 mls/hr Documented by: [id number] Infusion: 07/01/19 10:47 Dose: 20 mls/hr Documented by: [id number] Admin: 07/01/19 06:05 Dose: 20 mls/hr Documented by: [id number] Infusion: 07/01/19 06:05 Dose: 20 mls/hr Documented by: [id number] Admin: 07/01/19 01:10 Dose: 20 mls/hr Documented by: [id number] Infusion: 07/01/19 01:10 Dose: 20 mls/hr Documented by: [id number] Admin: 06/30/19 20:38 Dose: 20 mls/hr Documented by: [id number] Infusion: 06/30/19 20:38 Dose: 20 mls/hr Documented by: [id number] Admin: 06/30/19 15:45 Dose: 20 mls/hr Documented by: [id number] Infusion: 06/30/19 15:42 Dose: 20 mls/hr Documented by: [id number] Admin: 06/30/19 10:42 Dose: 20 mls/hr Documented by: [id number] Infusion: 06/30/19 10:07 Dose: 20 mls/hr Documented by: [id number] Admin: 06/30/19 05:07 Dose: 20 mls/hr Documented by: [id number] Infusion: 06/30/19 05:07 Dose: 20 mls/hr Documented by: [id number] Admin: 06/30/19 00:18 Dose: 20 mls/hr Documented by: [id number] Infusion: 06/30/19 00:14 Dose: 20 mls/hr Documented by: [id number] Admin: 06/29/19 19:14 Dose: 20 mls/hr Documented by: [id number] Infusion: 06/29/19 19:00 Dose: 20 mls/hr Documented by: [id number] Admin: 06/29/19 14:00 Dose: 20 mls/hr Documented by: [id number] Infusion: 06/29/19 14:00 Dose: 20 mls/hr Documented by: [id number] Admin: 06/29/19 09:23 Dose: 20 mls/hr Documented by: [id number] Infusion: 06/29/19 09:20 Dose: 20 mls/hr Documented by: [id number] Admin: 06/29/19 04:20 Dose: 20 mls/hr Documented by: [id number] Infusion: 06/29/19 04:20 Dose: 20 mls/hr Documented by: [id number] Admin: 06/29/19 00:05 Dose: 20 mls/hr Documented by: [id number] Infusion: 06/29/19 00:05 Dose: 20 mls/hr Documented by: [id number] Admin: 06/28/19 19:08 Dose: 20 mls/hr Documented by: [id number] Ceftriaxone Sodium 1,000 mg/ (Dextrose) 50 mls @ 100 mls/hr IV Q24H [facility]; Protocol Stop: 07/09/19 07:59 Last Admin: 07/01/19 08:40 Dose: 100 mls/hr Documented by: [id number] Infusion: 06/30/19 08:59 Dose: 0 mls/hr Documented by: [id number] Admin: 06/30/19 08:21 Dose: 100 mls/hr Documented by: [id number] Infusion: 06/29/19 09:21 Dose: 0 mls/hr Documented by: [id number] Admin: 06/29/19 08:15 Dose: 100 mls/hr Documented by: [id number] Insulin Aspart (Novolog Flexpen) 0 units SC ACHS [facility] Stop: 07/28/19 22:14 Last Admin: 07/01/19 08:45 Dose: 2 units Documented by: [id number] Cosigned by: [id number] Admin: 06/30/19 20:48 Dose: 2 units Documented by: [id number] Cosigned by: [id number] Admin: 06/30/19 17:05 Dose: 2 units Documented by: [id number] Cosigned by: [id number] Admin: 06/30/19 12:06 Dose: 3 units Documented by: [id number] Cosigned by: [id number] Admin: 06/30/19 08:21 Dose: Not Given Documented by: [id number] Cosigned by: [id number] Admin: 06/29/19 21:29 Dose: 1 units Documented by: [id number] Cosigned by: [id number] Admin: 06/29/19 16:38 Dose: Not Given Documented by: [id number] Cosigned by: [id number] Admin: 06/29/19 12:30 Dose: Not Given Documented by: [id number] Cosigned by: [id number] Admin: 06/29/19 08:15 Dose: 1 units Documented by: [id number] Cosigned by: [id number] Admin: 06/28/19 22:42 Dose: 1 units Documented by: [id number] Cosigned by: [id number] Insulin Glargine (Lantus Solostar Pen) 4 units SC BID [facility] Stop: 07/28/19 22:14 Last Admin: 07/01/19 08:40 Dose: 4 units Documented by: [id number] Cosigned by: [id number] Admin: 06/30/19 20:48 Dose: 4 units Documented by: [id number] Cosigned by: [id number] Admin: 06/30/19 08:21 Dose: 4 units Documented by: [id number] Cosigned by: [id number] Admin: 06/29/19 21:29 Dose: 4 units Documented by: [id number] Cosigned by: [id number] Admin: 06/29/19 08:15 Dose: 4 units Documented by: [id number] Cosigned by: [id number] Admin: 06/28/19 22:42 Dose: 4 units Documented by: [id number] Cosigned by: [id number] Ioversol (Optiray 320 100ml) 91 ml IV ONCE PRN PRN Reason: Interaction Checking Stop: 07/02/19 18:52 Last Admin: 06/28/19 18:54 Dose: 91 ml Documented by: [id number] Latanoprost (Xalatan Oph) 1 drops OPR HS [facility] Stop: 07/28/19 21:57 Last Admin: 06/30/19 20:49 Dose: 1 drops Documented by: [id number] Admin: 06/29/19 21:32 Dose: 1 drops Documented by: [id number] Admin: 06/28/19 22:40 Dose: 1 drops Documented by: [id number] Valacyclovir HCl (Valtrex) 1,000 mg PO BID [facility] Stop: 07/10/19 09:59 Last Admin: 07/01/19 08:44 Dose: 1,000 mg Documented by: [id number] Admin: 06/30/19 20:49 Dose: 1,000 mg Documented by: [id number] Admin: 06/30/19 10:35 Dose: 1,000 mg Documented by: [id number] PG Care Time/CCT Total # of Minutes Spent Total Time Spent with Patient: Total time spent is greater than 50% in coordination of care (as documented) at patient's floor/unit and/or counseling patient: Resident Activity Tracking Resident Involvement: Resident Care Provided Care Provided: Adult Hospital Medicine (1) Anemia Anemia type: unspecified type Qualified Code(s): D64.9 - Anemia, unspecified (2) Cirrhosis Hepatic cirrhosis type: unspecified hepatic cirrhosis (3) DM II (diabetes mellitus, type II), controlled Diabetes mellitus complication status: without complication Diabetes mellitus intermediate manager insulin use: without care home use Qualified Code(s): E11.9 - Type 2 diabetes mellitus without complications (4) GERD (gastroesophageal reflux disease) Esophagitis presence: without esophagitis Qualified Code(s): K21.9 - Gastro- esophageal reflux disease without esophagitis (5) HTN (hypertension) Hypertension type: essential hypertension Qualified Code(s): I10 - Essential (primary) hypertension
[2019-07-01] MEDS: INSULIN GLARGINE SOLOSTAR 100 UNITS/ML 3 ML PEN SC SCH ×2 (08:40→21:25)
[2019-07-01] MEDS: cefTRIAXone SODIUM 1,000 MG in DEXTROSE 5% 50 ML IV SCH (08:40)
[2019-07-01] MEDS: VALACYCLOVIR HCL 500 MG TABLET PO SCH ×2 (08:44→21:22)
[2019-07-01] MEDS: INSULIN ASPART 100 UNITS/ML 3 ML PEN SC SCH ×4 (08:45→21:24)
[2019-07-01] MEDS: LATANOPROST 0.005% OP SOLN 2.5 ML BTL OPR SCH (21:22)
[2019-07-01 23:45] VITALS: TEMP 98.2
[2019-07-02] MEDS: PANTOprazole 40 MG in DEXTROSE 5% 100 ML IV SCH ×3 (02:02→12:19)
[2019-07-02 05:40] LABS: Hematocrit (blood only) 25.2 % (37-47); Hemoglobin 8.4 g/dL (12.0-16.0); Mean Corpuscular Hemoglobin 32.3 pg (25-34); Mean Corpuscular Hgb Conc 33.3 g/dL (32-36); Mean Corpuscular Volume 96.9 fL (80-100); RDW Coefficient of Variation 14.5 % (11.5-14.5); RDW Standard Deviation 49.7 fL (36.4-46.3); White Blood Count 4.46 K/uL (4.8-10.8)
[2019-07-02 05:41] LABS: Platelet Count 85 K/uL (130-400)
[2019-07-02] MEDS ORDERED: MoRPHine SULFATE 2 MG/ML CARP IV STA (05:48)
[2019-07-02 06:17] LABS: BUN Creatinine Ratio 10.1 (10-20); Calcium 7.7 mg/dl (8.5-10.1); Creatinine Clr Calc Pharmacy 41.8 ml/min; Est GFR (African American) 83.1; Est GFR (Non-African American) 71.7; Potassium 3.4 mmol/L (3.5-5.1)
[2019-07-02 07:17] VITALS: BP 116/56; PULSE 74; O2SAT 91
[2019-07-02] MEDS: INSULIN ASPART 100 UNITS/ML 3 ML PEN SC SCH ×2 (08:57→12:21)
[2019-07-02] MEDS: INSULIN GLARGINE SOLOSTAR 100 UNITS/ML 3 ML PEN SC SCH (08:59)
[2019-07-02] MEDS: cefTRIAXone SODIUM 1,000 MG in DEXTROSE 5% 50 ML IV SCH (09:01)
[2019-07-02] MEDS: VALACYCLOVIR HCL 500 MG TABLET PO SCH (09:04)
[2019-07-02] MEDS ORDERED: INFLUENZA ADMINISTRATION CHARGE ONE (12:00)
[2019-07-02] MEDS ORDERED: INFLUENZA VACCINE HIGH DOSE 65+ 0.5 ML SYR IM ONE (12:00)
--- NOTE | 2019-07-02 17:43 | Discharge Summary ---
Date of Service July 02, 2019 Admission HPI Per Admitting Provider Adeola Menjivar is a pleasant 88yo C female with history of HTN, HLP, DM and GERD presenting with UGIB. She was sent from the [facility] after being found with hematemesis in her bed. Patient does not recall having any bleeding. At present she denies nausea/vomiting/abdominal pain. She denies hematemesis/coffee ground emeses/melena or hematochezia. She does not drink EtOH or take NSAIDS. She takes Plavix daily. She reports having gastric irritation with bleeding from Aspirin in the past. She was transfused before in April 2017 following acute blood loss anemia in setting of left hip fracture. I spoke with her son, Rod Menjivar(POA - ). He lives in [place] and typically visits her on and takes her out to breakfast and shopping. He states that she was not feeling well this AM. Her friend at the [facility] said that she has been having some epigastric pain, weakness, fatigue and poor appetite for the last few days. Her son states that she barely ate breakfast this AM and didn't feel up for shopping or doing anything else. He states that she is starting to lose her memory and becomes confused occasionally. They are both unaware of any liver disease. ER Course: Ceftriaxone, Octreotide ,Protonix, NSS Principal Diagnosis Upper GI bleed, acute blood loss anemia. Discharge Exam General she is awake and alert pleasant no distress. HEENT normocephalic atraumatic mucous members moist. Breathing unlabored no accessory muscle use good effort. Abdomen is soft nondistended no epigastric tenderness, no guarding/rebound/rigidity. Skin shows no rashes no pallor or icterus Discharge Data Allergies Allergy/AdvReac Type Severity Reaction Status Date / Time aspirin Allergy Severe THROAT Verified 06/28/19 20:21 SWELLS salmon oil Allergy Unknown Swelling Verified 06/29/19 16:06 of Lip/Tongue/Throat Consultations 06/28/19 20:35 ED Decision to Admit Stat 06/28/19 21:58 Consult Gastroenterology Routine Ordered Studies 06/28/19 18:01 CT abd pelvis IV con only Stat 06/28/19 21:58 US duplex portal hepatic veins Routine Abnormal lab results 07/01/19 07/02/19 07/02/19 Range/Units 20:25 05:19 05:19 WBC 4.46 L (4.8-10.8) K/uL RBC 2.60 L (4.2-5.4) M/uL Hgb 8.4 L (12.0-16.0) g/dL Hct 25.2 L (37-47) % RDW Std Deviation 49.7 H (36.4-46.3) fL Plt Count 85 L (130-400) K/uL Potassium 3.4 L (3.5-5.1) mmol/L Glucose 160 H (70-99) mg/dl POC Glucose 222 H (70-99) Calcium 7.7 L (8.5-10.1) mg/dl 07/02/19 07/02/19 07/02/19 Range/Units 07:36 11:53 11:54 WBC (4.8-10.8) K/uL RBC (4.2-5.4) M/uL Hgb (12.0-16.0) g/dL Hct (37-47) % RDW Std Deviation (36.4-46.3) fL Plt Count (130-400) K/uL Potassium (3.5-5.1) mmol/L Glucose (70-99) mg/dl POC Glucose 156 H 402 H* 375 H* (70-99) Calcium (8.5-10.1) mg/dl 07/02/19 Range/Units 11:57 WBC (4.8-10.8) K/uL RBC (4.2-5.4) M/uL Hgb (12.0-16.0) g/dL Hct (37-47) % RDW Std Deviation (36.4-46.3) fL Plt Count (130-400) K/uL Potassium (3.5-5.1) mmol/L Glucose (70-99) mg/dl POC Glucose 418 H* (70-99) Calcium (8.5-10.1) mg/dl Hospital Course (1) Cirrhosis: Adeola Menjivar is an 88 year old woman with a past medical history of DMII, HTN, HLD here for hematemesis. Upper GI bleed/Hematemesis - Possible bleeding esophageal varices vs PUD Acute blood loss anemia now stable Patient presented initially with hematemesis, CT scan showing new cirrhosis and portal hypertension with large esophageal varices. Patient was a full code, GI consulted for upper endoscopy, but after previous hospitalist's discussion with son ([employer]) and patient decision was made to forgo scope and watchful waiting h/h stable. no further hematemesis tolerating diet -stable for return to the [facility] (see below under weakness) -propranolol for varices (start w 40mg HS, titrate up if possible) -empiric protonix Cirrhosis Hep B/C negative, no tylenol history, no EtOH history or any hepatic history Very possibly MCKEON from salvage determiner type II diabetes mellitus Follow up outpatient w PCP and/or GI Vaginal ulceration viral/bacterial cultures taken Valtrex empiric course Disposition Patient is frail, PT/OT recommended SNF - but on review the [facility] will be able to take care of her with escalated support services DVT PPx: Contraindicated due to bleed (2) Acute upper GI bleed: (3) Thrombocytopenia: Platelets sl low - consistent w cirrhosis. outpt f/u (4) Anemia: As above. due to GI losses, now stabilized. repeat CBC later this week as outpt (5) GERD (gastroesophageal reflux disease): Chronic. -Protonix gtt as above --> transition to PO protonix (6) HTN (hypertension): outpt f/u - does appear to have buffer to tolerate propranolol for varices (7) Dyslipidemia: (8) DM II (diabetes mellitus, type II), controlled: Total Time Total Time Spent Total Time Spent (In Minutes): <30 Discharge Plan Discharge Items Patient Disposition: [facility] Reason For Visit: UGIB Discharge Diagnosis: Upper GI bleed, Deconditioning Activity: Per Instructions section Non-emergency contact: Primary Care Provider and [employer] Call non-emergency contact if: you have any medication questions, your symptoms worsen, your pain is unusual for you and your temperature is above 101 Follow-up/Referrals: MIRELLA, [Primary Care Provider] - Diet: Carb Consistent or DM2 Addtl Attending Provider Instructions: It was our pleasure to take care of Ms. Adeola Menjivar. Ms. Menjivar initially presented secondary to hematemesis and a CT scan performed at time of admission revealed evidence of hepatic cirrhosis, portal vein hypertension, and significant varices. Family decided to forgo invasive treatment and we monitored patient who remained hemodynamically stable and her hemoglobin plateaued around 9. GI bleed: Possibly secondary to varices, also possibly due to bleeding ulcer, history of GERD and bleeding ulcer in late nineties. Initially made NPO, started on octreotide, and protonix drip Bleeding stabilized after admission, slowly advanced diet and d/c'd octreotide. Hemodynamically stable throughout, no furuther episodes of hematemesis or hematochezia, heme positive stool No upper endoscopy was performed secondary to families wishes, patient was consented for blood transfusion but never required transfusion Hemoglobin 8.4 on discharge Recommend follow up CBC with PCP discharging with propanolol 40 mg BID to try to prevent variceal bleeding will need close follow up on discharge to ensure we are not making patient bradycardic or hypotensive. 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 Pending Studies at Discharge: No Stand-Alone Forms: [employer] [facility] Referrals, Smoking Cessation Skilled Items Patient informed of condition?: Yes DNR: Yes Discharge Level of Care: Other Communicable Disease: No Discharge Prognosis: Stable Lines: None Urinary Catheter: No Medications and DC Order Prescriptions: New valacyclovir 500 mg Tablet 1,000 mg PO BID 7 Days Qty: 14 RF: 0 propranolol 20 mg Tablet 40 mg PO BID 30 Days Qty: 120 RF: 0 pantoprazole [Protonix] 40 mg tablet,delayed release (DR/EC) 40 mg PO DAILY Qty: 30 RF: 0 Continued repaglinide [Prandin] 1 mg Tablet 1 mg PO TID RF: 0 latanoprost 0.005 % Drops 1 drp OPR HS RF: 0 atorvastatin [Lipitor] 40 mg Tablet 40 mg PO DAILY RF: 0 acetaminophen [Tylenol] 325 mg Tablet 650 mg PO Q4H PRN (Reason: Pain) RF: 0 glipizide 10 mg Tablet Extended Release 24hr 10 mg PO DAILY RF: 0 clopidogrel [Plavix] 75 mg Tablet 75 mg PO DAILY RF: 0 ferrous sulfate 325 mg (65 mg iron) Tablet 325 mg PO BIDM RF: 0 metformin 1,000 mg Tablet 1,000 mg PO DAILY RF: 0 ranitidine HCl [Zantac] 150 mg Tablet 150 mg PO BID RF: 0 docusate sodium [Colace] 100 mg Capsule 100 mg PO BID RF: 0 Lactobacillus acidophilus [Acidophilus] Capsule 2 cap PO TIDM RF: 0 Therems-M 27-0.4 mg Tablet 1 tab PO DAILY RF: 0 Discharge Orders: Discharge Order (Routine); Ordered 07/02/19 Ordered By: Keon Luz Admission Data Admit Date/Time: 06/28/19 21:07 Attending Provider: Raymond Green Admit Provider: Vira Lopez Primary Care Provider: John VU Providers: Vira Lopez ; Ced Adame ; Riddhi Benavidez Other Interventions: Discharge Summary Assessment (RN) Last Done: 07/02/19 13:32 DC Date/Time DO NOT enter until pt leaves facility: 07/02/19 14:52
[2019-07-02] MEDS ORDERED: PROPRANOLOL HCL 20 MG TAB PO SCH (21:00)
[2019-07-03 13:12] LABS: Herpes Simplex Virus Culture NOT ISOLATED (NOT ISOLATED)
== END 2019-07-02 14:52 | disposition home or self-care (01) | DRG 368 ==
LOC: ED 17:43 → 2S 21:07 → SUATTDRO 21:07 → 2S 21:30 → 4W 07-01 10:48

== ENCOUNTER 2019-08-18 11:21 | Inpatient (IN) ==
--- NOTE | 2019-08-18 13:56 | XRay Report ---
XR pelvis 1-2V routine CLINICAL HISTORY: s/p fall COMPARISON: Pelvis radiograph April 26, 2017. CT of the abdomen and pelvis June 28, 2019. FINDINGS: Left femoral healed intertrochanteric fracture is noted. Hardware is intact. No acute frac ture within the pelvis or hips is identified by radiography. Sacroiliac joints and symphysis pubis ar e intact. IMPRESSION: 1. No acute fracture within the pelvis or hips. 2. Healed intertrochanteric fracture of the left femur status post internal fixation. Hardware intact . Electronically signed by: Garcia Worrell M.D. 08/18/2019 1:55 PM
--- NOTE | 2019-08-18 13:57 | XRay Report ---
XR sacrum coccyx min 2V CLINICAL HISTORY: s/p fall COMPARISON: CT of the abdomen and pelvis June 28, 2019. FINDINGS: Left femoral internal fixation hardware is partially imaged. The sacroiliac joints are int act. No acute fracture within the sacrum or coccyx is identified by radiography. IMPRESSION: No acute fracture within the sacrum or coccyx by radiography. Electronically signed by: Garcia Worrell M.D. 08/18/2019 1:56 PM
--- NOTE | 2019-08-18 15:16 | XRay Report ---
XR chest 1V portable CLINICAL HISTORY: Dyspnea COMPARISON STUDY: Chest CT July 24, 2010. Chest radiograph April 30, 2017. FINDINGS: There is no pneumothorax. Small to moderate left and small right pleural effusions are note d. Interstitial thickening has increased. Left basilar opacity is noted. There is mild right basilar opacity. Cardiomediastinal silhouette is stable. Lung volumes are at the lower limits of normal. IMPRESSION: 1. Increase in interstitial thickening. This favors pulmonary edema or less likely an infectious proc ess superimposed upon pulmonary fibrosis. 2. Small to moderate left and small right pleural effusions. Associated bibasilar opacities which fav or atelectasis however radiographic follow-up is recommended. Electronically signed by: Garcia Worrell M.D. 08/18/2019 3:15 PM
[2019-08-18 15:49] LABS: Basophils # (auto) 0.02 K/uL (0-0.2); Basophils % (auto) 0.3 %; Eosinophils # (auto) 0.24 K/uL (0-0.5); Eosinophils % (auto) 4.2 %; Hematocrit (blood only) 43.4 % (37-47); Hemoglobin 14.2 g/dL (12.0-16.0); Immature Granulocytes # (auto) 0.01 K/uL (0.00-0.02); Immature Granulocytes % (auto) 0.2 %; Lymphocytes # (auto) 1.23 K/uL (1.2-3.4); Lymphocytes % (auto) 21.3 %; Mean Corpuscular Hemoglobin 31.5 pg (25-34); Mean Corpuscular Hgb Conc 32.7 g/dL (32-36); Mean Corpuscular Volume 96.2 fL (80-100); Mean Platelet Volume 10.3 fL (7.4-10.4); Monocytes # (auto) 0.46 K/uL (0.11-0.59); Neutrophils # (auto) 3.82 K/uL (1.4-6.5); Platelet Count 123 K/uL (130-400); RDW Coefficient of Variation 15.3 % (11.5-14.5); RDW Standard Deviation 53.4 fL (36.4-46.3); Red Blood Count 4.51 M/uL (4.2-5.4); White Blood Count 5.78 K/uL (4.8-10.8)
[2019-08-18 15:59] LABS: INR 1.2 (0.9-1.1); Partial Thromboplastin Ratio 0.9; Partial Thromboplastin Time 25.7 Seconds (21.0-31.0); Prothrombin Time 12.1 Seconds (9.0-12.0)
[2019-08-18 16:05] LABS: Alanine Aminotransferase 20 U/L (12-78); Albumin Level 2.3 gm/dl (3.4-5.0); Aspartate Aminotransferase 33 U/L (15-37); BUN Creatinine Ratio 13.1 (10-20); Blood Urea Nitrogen 12 mg/dl (7-18); Calcium 8.9 mg/dl (8.5-10.1); Carbon Dioxide 25 mmol/L (21-32); Chloride 102 mmol/L (98-107); Creatinine Clr Calc Pharmacy 37.8 ml/min; Est GFR (African American) 65.3; Est GFR (Non-African American) 56.3; Glucose 182 mg/dl (70-99); Magnesium 1.8 mg/dl (1.8-2.4); Potassium 3.8 mmol/L (3.5-5.1); Sodium 135 mmol/L (136-145)
[2019-08-18 16:10] LABS: Albumin Globulin Ratio 0.5 (0.9-2); Alkaline Phosphatase 127 U/L (45-117); Bilirubin,Total 1.4 mg/dl (0.2-1); Globulin 4.6 gm/dl (2.5-4.0); Total Protein 6.9 gm/dl (6.4-8.2); Troponin I < 0.015 ng/ml (0-0.045)
[2019-08-18] MEDS ORDERED: FUROSEMIDE 40 MG/4 ML VIAL IV STA (16:25)
--- NOTE | 2019-08-18 19:17 | Emergency Department Note ---
Entered by Meagan Coombs acting as a scribe for Joseluis De Leon MD History of Present Illness General Chief complaint: Fall Time Seen by Provider: 08/18/19 12:31 Source: patient History of Present Illness Onset (ago): hour(s) (1020 today) Location: head (fall) Pain Consistency: + other (episode) Quality: + other (fall) Relieved By: + none Exacerbated By: + none Associated symptoms: no syncope and no other (head pain, back pain) The patient is an 89 year old white female with a past medical history of DM, HTN, GERD, Osteoarthritis and Anemia presenting to the Emergency Department complaining of an episode of a fall starting at 1020 today. The patient reports that she was standing in the shower, slipped and fell onto her buttocks and back. She states that she wasnt able to get up on her own. She explains that she has no pain. She notes that she is a resident at the [facility]. She adds that nothing improves or worsens her symptoms. The patient denies syncope, head pain and back pain. Home Medications Home Medications Medication Instructions Recorded Confirmed Type Lactobacillus acidophilus 2 cap PO TIDM 06/11/18 08/18/19 History [Acidophilus] Therems-M 1 tab PO DAILY 06/11/18 08/18/19 History acetaminophen [Tylenol] 650 mg PO Q4H PRN 06/11/18 08/18/19 History atorvastatin [Lipitor] 40 mg PO DAILY 06/11/18 08/18/19 History docusate sodium [Colace] 100 mg PO BID 06/11/18 08/18/19 History ferrous sulfate 325 mg PO BIDM 06/11/18 08/18/19 History glipizide 10 mg PO DAILY 06/11/18 08/18/19 History latanoprost 1 drp OPR HS 06/11/18 08/18/19 History metformin 1,000 mg PO BID 06/11/18 08/18/19 History repaglinide [Prandin] 1 mg PO TID 06/28/19 08/18/19 History pantoprazole [Protonix] 40 mg PO DAILY #30 tab 07/02/19 08/18/19 Rx famotidine 20 mg PO BID 08/18/19 08/18/19 History Allergies Allergy/AdvReac Type Severity Reaction Status Date / Time aspirin Allergy Severe THROAT Verified 08/18/19 11:45 SWELLS salmon oil Allergy Unknown Swelling Verified 08/18/19 11:45 of Lip/Tongue/Throat Past Med/Surg History Medical History DM II (diabetes mellitus, type II), controlled (Chronic) Dyslipidemia (Chronic) Fracture of left hip (Acute) GERD (gastroesophageal reflux disease) (Chronic) HTN (hypertension) (Chronic) Iron deficiency anemia (Chronic) Osteoarthritis (Chronic) Surgical History H/O carotid endarterectomy (Resolved) H/O cataract removal with insertion of prosthetic lens (Resolved) History of hysterectomy (Resolved) Family History Other Family history non-contributory Social History Preferred Language: Senegalese Communication Ability: Effective 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 and A total of 10 systems reviewed and were otherwise negative Physical Exam Vital Signs Vital Signs - 24 hr 08/18/19 13:11 08/18/19 15:00 08/18/19 15:19 Pulse Rate 83 Pulse Rate [Radial] 82 86 Pulse Rate from SpO2 Sensor Pulse Rhythm Regular Pulse Rhythm [Radial] Regular Respiratory Rate 18 18 20 Respiratory Effort / Characteristics Non-Labored Respiratory Depth Normal Respiratory Pattern Regular Blood Pressure Blood Pressure [Right Arm] 124/48 L 121/54 L Blood Pressure Mean Blood Pressure Mean [Right Arm] 73 76 Pulse Oximetry 95 94 95 Oxygen Delivery Method Room Air Nasal Cannula Nasal Cannula Oxygen Flow Rate 2 2 08/18/19 15:25 08/18/19 16:00 08/18/19 16:30 Pulse Rate 84 83 88 Pulse Rate [Radial] Pulse Rate from SpO2 Sensor 83 83 84 Pulse Rhythm Pulse Rhythm [Radial] Respiratory Rate 17 23 24 Respiratory Effort / Characteristics Respiratory Depth Respiratory Pattern Blood Pressure 151/63 H 151/84 H 116/100 Blood Pressure [Right Arm] Blood Pressure Mean 96 103 109 Blood Pressure Mean [Right Arm] Pulse Oximetry 94 90 95 Oxygen Delivery Method Nasal Cannula Nasal Cannula Nasal Cannula Oxygen Flow Rate 2 2 2 08/18/19 17:00 08/18/19 17:30 Pulse Rate 83 77 Pulse Rate [Radial] Pulse Rate from SpO2 Sensor 84 76 Pulse Rhythm Pulse Rhythm [Radial] Respiratory Rate 27 H 18 Respiratory Effort / Characteristics Respiratory Depth Respiratory Pattern Blood Pressure 146/72 H 115/61 Blood Pressure [Right Arm] Blood Pressure Mean 115 83 Blood Pressure Mean [Right Arm] Pulse Oximetry Oxygen Delivery Method Oxygen Flow Rate GENERAL: Well appearing, well nourished, NAD, non-toxic. HEAD: No obvious deformities or lacerations. EYE EXAM: Normal conjunctiva. PERRL, no anisocoria and EOM's grossly intact w/o pain. OROPHARYNX: Dry mucus membranes. False teeth in place. NECK: No TTP. Supple, no nuchal rigidity, no adenopathy, non-tender. No signs of meningismus. LUNGS: Clear to auscultation. Normal chest wall mechanics. HEART: NSR, no MRG. ABDOMEN: Abdomen soft, non-tender, normo-active bowel sounds, no masses, no rebound or guarding. BACK: No CVA TTP. SKIN: No rashes and no bruising. UPPER EXTREMITIES: No TTP. Upper extremities are grossly normal. LOWER EXTREMITIES: No TTP. Bilateral RADHA wraps in place. No pitting edema. No calf pain. NEURO EXAM: A&O x3, cranial nerves II-XII grossly intact, normal speech, moves all 4 extremities on command w/o issue. Course Course 1255: The patient was evaluated in room C11B, and a complete history and physical examination were performed. 1256: accounts receivable specialist applied. 1428: I updated the patient on her imaging studies. 1435: Upon my reevaluation, I discussed stone's findings with her. She verbalized agreement of the treatment plan. The patient was discharged back to the [facility]. 1500: The patients nurse reported that the patient was feeling short of breath at this time and that her oxygen saturation briefly dipped into the low 80s. 1625: I discussed the patients case with Dr. Friedman [facility] hospitalist. He will evaluate the patient for further management. Administered Medications Docusate Sodium (Colace) 100 mg PO BID HAROLDO Stop: 09/17/19 20:59 Last Admin: 08/19/19 09:41 Dose: Not Given Documented by: [id number] Admin: 08/18/19 20:58 Dose: 100 mg Documented by: [id number] Famotidine (Pepcid) 20 mg PO BID HAROLDO Stop: 09/17/19 20:59 Last Admin: 08/19/19 10:21 Dose: Not Given Documented by: [id number] Admin: 08/18/19 20:58 Dose: 20 mg Documented by: [id number] Ferrous Sulfate (Feosol) 325 mg PO BIDM HAROLDO Stop: 09/18/19 07:59 Last Admin: 08/19/19 10:20 Dose: Not Given Documented by: [id number] Heparin Sodium (Porcine) (Heparin Sodium (Porcine)) 5,000 units SQ Q12 HAROLDO Stop: 09/17/19 20:59 Last Admin: 08/19/19 09:42 Dose: 5,000 units Documented by: [id number] Cosigned by: [id number] Admin: 08/18/19 20:59 Dose: 5,000 units Documented by: [id number] Cosigned by: [id number] Potassium Chloride (K Eugenio / Wtr) 10 meq in 100 mls @ 100 mls/hr IV Q1H HAROLDO Stop: 08/19/19 14:29 Last Admin: 08/19/19 12:05 Dose: 100 mls/hr Documented by: [id number] Infusion: 08/19/19 12:05 Dose: 0 mls/hr Documented by: [id number] Admin: 08/19/19 11:00 Dose: 100 mls/hr Documented by: [id number] Furosemide 40 mg/ Syringe 4 mls @ 4 mls/min IV DAILY HAROLDO Stop: 09/18/19 10:14 Last Admin: 08/19/19 11:00 Dose: 4 mls/min Documented by: [id number] Insulin Aspart (Novolog Flexpen) 0 units SC Q6 HAROLDO Stop: 09/17/19 20:59 Last Admin: 08/19/19 12:06 Dose: Not Given Documented by: [id number] Cosigned by: [id number] Lactobacillus Acidophilus (Floranex) 2 tab PO TIDM HAROLDO Stop: 09/18/19 07:59 Last Admin: 08/19/19 12:06 Dose: Not Given Documented by: [id number] Admin: 08/19/19 10:19 Dose: Not Given Documented by: [id number] Latanoprost (Xalatan Oph) 1 drops OPR HS HAROLDO Stop: 09/17/19 20:59 Last Admin: 08/18/19 20:59 Dose: 1 drops Documented by: [id number] Pantoprazole Sodium (Protonix) 40 mg PO DAILY HAROLDO Stop: 09/18/19 08:59 Last Admin: 08/19/19 10:19 Dose: Not Given Documented by: [id number] Tramadol HCl (Ultram) 50 mg PO Q4H PRN PRN Reason: Moderate Pain Stop: 09/17/19 19:32 Last Admin: 08/18/19 21:15 Dose: 50 mg Documented by: [id number] Discontinued Medications Furosemide (Lasix) 40 mg IV NOW STA Stop: 08/18/19 16:26 Last Admin: 08/18/19 18:27 Dose: 40 mg Documented by: [id number] Furosemide (Lasix) 40 mg IV 2014 [facility] Stop: 08/18/19 23:59 Last Admin: 08/18/19 21:16 Dose: 40 mg Documented by: [id number] Magnesium Sulfate/Dextrose (Magnesium Sulfate / D5w) 1 gm in 100 mls @ 100 mls/hr IV ONE ONE Stop: 08/19/19 04:21 Last Infusion: 08/19/19 05:14 Dose: 0 mls/hr Documented by: [id number] Admin: 08/19/19 04:37 Dose: 100 mls/hr Documented by: [id number] Digoxin 250 mcg/ Syringe 10 mls @ 2 mls/min IV NOW STA Stop: 08/19/19 03:32 Last Admin: 08/19/19 03:44 Dose: 2 mls/min Documented by: [id number] Albumin Human (Albumin 25%) 50 mls @ 50 mls/hr IV Q1H HAROLDO Stop: 08/19/19 05:29 Last Infusion: 08/19/19 04:38 Dose: 0 mls/hr Documented by: [id number] Admin: 08/19/19 04:17 Dose: 50 mls/hr Documented by: [id number] Infusion: 08/19/19 04:17 Dose: 50 mls/hr Documented by: [id number] Admin: 08/19/19 03:54 Dose: 50 mls/hr Documented by: [id number] Sodium Chloride (Nss 1000ml) 250 mls @ 999 mls/hr IV .Q16M ONE Stop: 08/19/19 03:47 Last Infusion: 08/19/19 05:14 Dose: 0 mls/hr Documented by: [id number] Admin: 08/19/19 04:38 Dose: 999 mls/hr Documented by: [id number] Insulin Aspart (Novolog Flexpen) 0 units SC ACHS HAROLDO Stop: 09/17/19 20:59 Last Admin: 08/19/19 12:14 Dose: Not Given Documented by: [id number] Cosigned by: [id number] Admin: 08/19/19 09:41 Dose: Not Given Documented by: [id number] Cosigned by: [id number] Admin: 08/18/19 21:00 Dose: 300 units Documented by: [id number] Cosigned by: [id number] Potassium Chloride (Klor-Con M20) 20 meq PO NOW STA Stop: 08/19/19 03:23 Last Admin: 08/19/19 04:15 Dose: 20 meq Documented by: [id number] Repaglinide (Prandin) 1 mg PO TID HAROLDO Stop: 09/17/19 20:59 Last Admin: 08/18/19 21:54 Dose: Not Given Documented by: [id number] Critical Care Time Critical Care Time: Yes Total Critical Care Time: 42 I have personally spent 42 minutes of critical care time in direct management of this patient. This includes bedside care, interpretation of diagnostic studies, and testing, discussion with consultants, patient, and family members, and other require inpatient management activities. 2/2 hypoxic respiratory failure related to likely CHF. This 42 minutes is in excess of all separately billable procedures. Medical Decision Making Differential Diagnosis Differential diagnoses include major intracranial, cervical, spinal, thoracic, abdominal, pelvic and neurologic injury. Fracture, contusion, sprain, strain, laceration, abrasions included as well. Medical Records Attestation: I reviewed the patient's medical records. The patients oxygen saturation RELATIONS DIRECTOR was 93% on room air. Stable vitals. No fever. Home Medications Current Medication List: was personally reviewed by me Laboratory Data Attestation: I reviewed the patient's lab results. Result diagrams: 08/19/19 05:27 08/19/19 05:27 Lab Results 08/18/19 08/18/19 08/18/19 Range/Units 15:35 15:35 15:35 WBC 5.78 (4.8-10.8) K/uL RBC 4.51 (4.2-5.4) M/uL Hgb 14.2 (12.0-16.0) g/dL Hct 43.4 (37-47) % MCV 96.2 (80-100) fL MCH 31.5 (25-34) pg MCHC 32.7 (32-36) g/dL RDW Std Deviation 53.4 H (36.4-46.3) fL RDW Coeff of Jami 15.3 H (11.5-14.5) % Plt Count 123 L (130-400) K/uL MPV 10.3 (7.4-10.4) fL Immature Gran % (Auto) 0.2 % Neut % (Auto) 66.0 % Lymph % (Auto) 21.3 % [place] % (Auto) 8.0 % Eos % (Auto) 4.2 % Baso % (Auto) 0.3 % Immature Gran # (Auto) 0.01 (0.00-0.02) K/uL Neut # (Auto) 3.82 (1.4-6.5) K/uL Lymph # (Auto) 1.23 (1.2-3.4) K/uL [place] # (Auto) 0.46 (0.11-0.59) K/uL Eos # (Auto) 0.24 (0-0.5) K/uL Baso # (Auto) 0.02 (0-0.2) K/uL PT 12.1 H (9.0-12.0) Seconds INR 1.2 H (0.9-1.1) APTT 25.7 (21.0-31.0) Seconds PTT Ratio 0.9 Sodium 135 L (136-145) mmol/L Potassium 3.8 (3.5-5.1) mmol/L Chloride 102 (98-107) mmol/L Carbon Dioxide 25 (21-32) mmol/L Anion Gap 8.0 (3-11) BUN 12 (7-18) mg/dl Creatinine 0.91 (0.6-1.2) mg/dl Est Cr Clr Drug Dosing 37.8 ml/min Est GFR ( Amer) 65.3 Est GFR (Non-Af Amer) 56.3 BUN/Creatinine Ratio 13.1 (10-20) Glucose 182 H (70-99) mg/dl Calcium 8.9 (8.5-10.1) mg/dl Magnesium 1.8 (1.8-2.4) mg/dl Total Bilirubin 1.4 H (0.2-1) mg/dl AST 33 (15-37) U/L ALT 20 (12-78) U/L Alkaline Phosphatase 127 H (45-117) U/L Troponin I < 0.015 (0-0.045) ng/ml Total Protein 6.9 (6.4-8.2) gm/dl Albumin 2.3 L (3.4-5.0) gm/dl Globulin 4.6 H (2.5-4.0) gm/dl Albumin/Globulin Ratio 0.5 L (0.9-2) Imaging Data Radiologist's Impression: Radiology results as stated below per my review and the radiologist's interpretation: XR pelvis 1-2V routine CLINICAL HISTORY: s/p fall COMPARISON: Pelvis radiograph April 26, 2017. CT of the abdomen and pelvis June 28, 2019. FINDINGS: Left femoral healed intertrochanteric fracture is noted. Hardware is intact. No acute fracture within the pelvis or hips is identified by radiography. Sacroiliac joints and symphysis pubis are intact. IMPRESSION: 1. No acute fracture within the pelvis or hips. 2. Healed intertrochanteric fracture of the left femur status post internal fixation. Hardware intact. Electronically signed by: Garcia Worrell M.D. 08/18/2019 1:55 PM XR sacrum coccyx min 2V CLINICAL HISTORY: s/p fall COMPARISON: CT of the abdomen and pelvis June 28, 2019. FINDINGS: Left femoral internal fixation hardware is partially imaged. The sacroiliac joints are intact. No acute fracture within the sacrum or coccyx is identified by radiography. IMPRESSION: No acute fracture within the sacrum or coccyx by radiography. Electronically signed by: Garcia Worrell M.D. 08/18/2019 1:56 PM ECG Data Attestation: I personally reviewed and interpreted this ECG as follows: Indication: + SOB/dyspnea Rate (beats per minute): 86 Rhythm: + normal sinus ECG [place]: + Normal ECG Findings: + Other (Normal intervals. Q waves anteriorly. TWI in lead 3. ) Comparison ECG Date: from (06/28/19) Change: no significant change Blood Pressure Blood Pressure Findings: Elevated blood pressure Blood Pressure Disposition: further management by hospitalist ASHER Narrative The patient is an 89 year old white female with a past medical history of DM, HTN, GERD, Osteoarthritis and Anemia presenting to the Emergency Department complaining of an episode of a fall starting at 1020 today. Patient was seen and evaluated the bedside. I did review the EMS records and the patient had a fall around 1020. Patient was afebrile with stable vital signs. The patient upon presentation denies any headache or neck pain. The patient denies any LOC and denies striking her head. The patient denies any buttock pain. Patient states that she did not ambulate after her fall. The patient did have sacrum/coccyx x-rays as well as pelvis. Patient denies any pains and no pain medications were given. The patient denies any LOC has no signs of obvious trauma to the head or neck area and the patient does not take any blood thinning medications. Patient's plain x-rays unremarkable. The patient was assessed prior to discharge back to her halfway and was noted to be hypoxic into the 70s. The patient was placed on nasal cannula. Patient did have an additional work-up. Patient does appear to have some volume overload based on her chest x-ray. I do not believe that this is traumatic. The patient is stable blood counts and I believe this is more related to her chronic CHF as the patient does have some lower extremity edema as well. Patient was given a dose of Lasix and did speak the on-call hospitalist agreed to further evaluate treat the patient. Patient was admitted to the medicine service. Impression & Plan Hypoxic, Fall, Respiratory failure, CHF exacerbation Discharge Plan Visit Data *Final* Discharge Date/Time: 08/18/19 18:42 Chief Complaint: Fall ED Provider: Joseluis De Leon Discharge Problem: Hypoxic, Fall, Respiratory failure, CHF exacerbation Patient Disposition: Admitted As Inpatient Condition: Good Discharge Instructions Interventions: ED Discharge Assessment Last Done: 08/18/19 18:42 Discharge Problem: Fall Qualifiers: Encounter type: initial encounter Qualified Code(s): W19.XXXA - Unspecified fall, initial encounter Respiratory failure Qualifiers: Chronicity: acute Respiratory failure complication: hypoxia Qualified Code(s): J96.01 - Acute respiratory failure with hypoxia CHF exacerbation Qualifiers: Heart failure type: unspecified Qualified Code(s): I50.9 - Heart failure, unspecified The scribe's documentation has been prepared under my direction and personally reviewed by me in its entirety. I confirm that the note above accurately reflects all work, treatment, procedures, and medical decision making performed by me.
[2019-08-18] MEDS ORDERED: GLUCOSE 10 TABS/TUBE PO PRN (19:33)
[2019-08-18] MEDS ORDERED: ALBUTEROL 0.083% NEBU SOLN 3 ML VIAL NEB PRN (19:33)
[2019-08-18] MEDS ORDERED: CARBOHYDRATES FOR HYPOGLYCEMIA PO PRN (19:33)
[2019-08-18] MEDS ORDERED: MoRPHine SULFATE 2 MG/ML CARP IV PRN (19:33)
[2019-08-18] MEDS ORDERED: DEXTROSE 50% 50 ML SYRINGE IV PRN (19:33)
[2019-08-18] MEDS ORDERED: GLUCAGON FOR INJ 1 MG VIAL SQ PRN (19:33)
[2019-08-18] MEDS ORDERED: GLUCOSE 40% GEL 15 GM TUBE PO PRN (19:33)
[2019-08-18] MEDS ORDERED: ONDANSETRON INJ 2 MG/ML 2 ML VIAL IV PRN (19:33)
[2019-08-18] MEDS ORDERED: FUROSEMIDE 40 MG/4 ML VIAL IV SCH (20:15)
--- NOTE | 2019-08-18 20:39 | History & Physical Report ---
Date of Service August 18, 2019 Assessment & Plan (1) CHF exacerbation: Admit tele Lasix 40mg IV given in the ED I repeated a second dose of 40mg IV this evening. Then can reassess further diuretic need in the am. Check echo DVT prophylaxis = sub-q heparin. (2) Fall: Ground level mechanical fall. PT/OT. (3) HTN (hypertension): Does not appear to take anything daily for this. PRN Hydralazine ordered overnight. (4) Dyslipidemia: Continue atorvastatin. (5) DM II (diabetes mellitus, type II), controlled: Hold metformin Continue Prandin and glipizide Cover highs with sliding scale insulin History of Present Illness 89 y/o female presented to the ED after a ground level fall where she slipped and fell onto her buttocks in the shower. She was not able to get up on her own. She did not lose consciousness. No back pain, head pain, neck pain or hip pain reported. No chest pain, SOB, cough, F/C, or N/V/D. She has felt diffuse weakness over the past day. In the ED she appeared to have signs of CHF on CXR. She was given 40mg of IV Lasix in the ED. Primary Care Provider: MIRELLA Allergies Allergy/AdvReac Type Severity Reaction Status Date / Time aspirin Allergy Severe THROAT Verified 08/18/19 11:45 SWELLS salmon oil Allergy Unknown Swelling Verified 08/18/19 11:45 of Lip/Tongue/Throat Home Medications Home Medications Medication Instructions Recorded Confirmed Type Lactobacillus acidophilus 2 cap PO TIDM 06/11/18 08/18/19 History [Acidophilus] Therems-M 1 tab PO DAILY 06/11/18 08/18/19 History acetaminophen [Tylenol] 650 mg PO Q4H PRN 06/11/18 08/18/19 History atorvastatin [Lipitor] 40 mg PO DAILY 06/11/18 08/18/19 History docusate sodium [Colace] 100 mg PO BID 06/11/18 08/18/19 History ferrous sulfate 325 mg PO BIDM 06/11/18 08/18/19 History glipizide 10 mg PO DAILY 06/11/18 08/18/19 History latanoprost 1 drp OPR HS 06/11/18 08/18/19 History metformin 1,000 mg PO BID 06/11/18 08/18/19 History repaglinide [Prandin] 1 mg PO TID 06/28/19 08/18/19 History pantoprazole [Protonix] 40 mg PO DAILY #30 tab 07/02/19 08/18/19 Rx famotidine 20 mg PO BID 08/18/19 08/18/19 History Past Med/Surg History Medical History DM II (diabetes mellitus, type II), controlled (Chronic) Dyslipidemia (Chronic) Fracture of left hip (Acute) GERD (gastroesophageal reflux disease) (Chronic) HTN (hypertension) (Chronic) Iron deficiency anemia (Chronic) Osteoarthritis (Chronic) Surgical History H/O carotid endarterectomy (Resolved) H/O cataract removal with insertion of prosthetic lens (Resolved) History of hysterectomy (Resolved) Family History Other Family history non-contributory Social History Preferred Language: Spanish Communication Ability: Effective Application Specialist Required: No Beliefs That Will Affect Care: None marital status: / Current Living Situation: Personal Care Facility Current Living Situation Comment: Lives at [facility] Other Information That Helps Us Care for You: No Feels Safe at Home: Yes Safety Concerns: Feels Safe At This Time Smoking Status: Former smoker Do You Dip or Chew Tobacco: No ; Second Hand Exposure: No ; Tobacco Cessation Education Requested by Patient: No Hx Alcohol Use: No Hx Substance Use: No Review of Systems Review of Systems: All systems reviewed & are unremarkable except as noted in HPI & below Physical Exam Physical Exam: General- adult female, NAD. Head- atraumatic Eyes- PERRL, EOMI, anicteric ENT- oropharynx clear Neck- supple, no JVD, no adenopathy, no thyromegaly. Lungs- clear to auscultation and percussion Heart- regular rhythm; no murmur, no gallop, no rub appreciated Abdomen- normal bowel sounds, soft, nontender. Extremities- no pretibial edema, b/l lower ext have RADHA wraps in place which patient reports is due to swelling. 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 Skin- warm & dry Results & Data Vital Signs (Past 12 Hours) Vital Signs Temp Pulse Pulse Resp BP BP Pulse Ox 08/18/19 19:33 36.3 C L 84 153/71 H 97 08/18/19 18:42 82 21 139/67 97 08/18/19 18:30 80 14 139/67 98 08/18/19 18:00 82 21 97 08/18/19 17:30 77 18 115/61 08/18/19 17:00 83 27 H 146/72 H 08/18/19 16:30 88 24 116/100 95 08/18/19 16:00 83 23 151/84 H 90 08/18/19 15:25 84 17 151/63 H 94 08/18/19 15:19 83 20 95 08/18/19 15:00 86 18 121/54 L 94 08/18/19 13:11 82 18 124/48 L 95 08/18/19 11:21 36.6 C 81 18 127/91 95 Laboratory Results Laboratory Results WBC 5.78 K/uL (4.8-10.8) 08/18/19 15:35 RBC 4.51 M/uL (4.2-5.4) 08/18/19 15:35 Hgb 14.2 g/dL (12.0-16.0) 08/18/19 15:35 Hct 43.4 % (37-47) 08/18/19 15:35 MCV 96.2 fL (80-100) 08/18/19 15:35 MCH 31.5 pg (25-34) 08/18/19 15:35 MCHC 32.7 g/dL (32-36) 08/18/19 15:35 RDW Std Deviation 53.4 fL (36.4-46.3) H 08/18/19 15:35 RDW Coeff of Jami 15.3 % (11.5-14.5) H 08/18/19 15:35 Plt Count 123 K/uL (130-400) L 08/18/19 15:35 MPV 10.3 fL (7.4-10.4) 08/18/19 15:35 Immature Gran % (Auto) 0.2 % 08/18/19 15:35 Neut % (Auto) 66.0 % 08/18/19 15:35 Lymph % (Auto) 21.3 % 08/18/19 15:35 [place] % (Auto) 8.0 % 08/18/19 15:35 Eos % (Auto) 4.2 % 08/18/19 15:35 Baso % (Auto) 0.3 % 08/18/19 15:35 Immature Gran # (Auto) 0.01 K/uL (0.00-0.02) 08/18/19 15:35 Neut # (Auto) 3.82 K/uL (1.4-6.5) 08/18/19 15:35 Lymph # (Auto) 1.23 K/uL (1.2-3.4) 08/18/19 15:35 [place] # (Auto) 0.46 K/uL (0.11-0.59) 08/18/19 15:35 Eos # (Auto) 0.24 K/uL (0-0.5) 08/18/19 15:35 Baso # (Auto) 0.02 K/uL (0-0.2) 08/18/19 15:35 PT 12.1 Seconds (9.0-12.0) H 08/18/19 15:35 INR 1.2 (0.9-1.1) H 08/18/19 15:35 APTT 25.7 Seconds (21.0-31.0) 08/18/19 15:35 PTT Ratio 0.9 08/18/19 15:35 Sodium 135 mmol/L (136-145) L 08/18/19 15:35 Potassium 3.8 mmol/L (3.5-5.1) 08/18/19 15:35 Chloride 102 mmol/L (98-107) 08/18/19 15:35 Carbon Dioxide 25 mmol/L (21-32) 08/18/19 15:35 Anion Gap 8.0 (3-11) 08/18/19 15:35 BUN 12 mg/dl (7-18) 08/18/19 15:35 Creatinine 0.91 mg/dl (0.6-1.2) 08/18/19 15:35 Est Cr Clr Drug Dosing 37.8 ml/min 08/18/19 15:35 Est GFR ( Amer) 65.3 08/18/19 15:35 Est GFR (Non-Af Amer) 56.3 08/18/19 15:35 BUN/Creatinine Ratio 13.1 (10-20) 08/18/19 15:35 Glucose 182 mg/dl (70-99) H 08/18/19 15:35 Calcium 8.9 mg/dl (8.5-10.1) 08/18/19 15:35 Magnesium 1.8 mg/dl (1.8-2.4) 08/18/19 15:35 Total Bilirubin 1.4 mg/dl (0.2-1) H 08/18/19 15:35 AST 33 U/L (15-37) 08/18/19 15:35 ALT 20 U/L (12-78) 08/18/19 15:35 Alkaline Phosphatase 127 U/L (45-117) H 08/18/19 15:35 Troponin I < 0.015 ng/ml (0-0.045) 08/18/19 15:35 Total Protein 6.9 gm/dl (6.4-8.2) 08/18/19 15:35 Albumin 2.3 gm/dl (3.4-5.0) L 08/18/19 15:35 Globulin 4.6 gm/dl (2.5-4.0) H 08/18/19 15:35 Albumin/Globulin Ratio 0.5 (0.9-2) L 08/18/19 15:35 Diagnostic Findings [facility], [place] [phone] XRay Report Patient: ANDIE KAHN Date: 08/18/19 MR#: [id number]: [id number] Acct ID:[id number]: [facility] [place] Date: 1930[facility] Zip: [place] [address] Age: 89Location: ED Sex: F Room/Bed: Att Phy:Diagnosis: FALL Odette Phy: The OakesService Date: 08/18/19 Fam Phy:Interpreting Phy: Garcia Worrell MD Admit Phy: Ordering Phy: Joseluis De Leon M.D. cc: ~ XR pelvis 1-2V routine CLINICAL HISTORY: s/p fall COMPARISON: Pelvis radiograph April 26, 2017. CT of the abdomen and pelvis June 28, 2019. FINDINGS: Left femoral healed intertrochanteric fracture is noted. Hardware is intact. No acute fracture within the pelvis or hips is identified by radiography. Sacroiliac joints and symphysis pubis are intact. IMPRESSION: 1. No acute fracture within the pelvis or hips. 2. Healed intertrochanteric fracture of the left femur status post internal fixation. Hardware intact. Electronically signed by: Garcia Worrell M.D. 08/18/2019 1:55 PM Dictated: 08/18/19 1353 Transcribed: 08/18/191352 [place], [place] [phone] XRay Report Patient: ANDIE KAHN Date: 08/18/19 MR#: [id number]: [id number] Acct ID:[id number]: THE L[facility] Date: 1930[facility] Zip: [place] [address] Age: 89Location: ED Sex: F Room/Bed: Att Phy:Diagnosis: FALL Odette Phy: The OakesService Date: 08/18/19 Fam Phy:Interpreting Phy: Garcia Worrell MD Admit Phy: Ordering Phy: Joseluis De Leon M.D. cc: ~ XR sacrum coccyx min 2V CLINICAL HISTORY: s/p fall COMPARISON: CT of the abdomen and pelvis June 28, 2019. FINDINGS: Left femoral internal fixation hardware is partially imaged. The sacroiliac joints are intact. No acute fracture within the sacrum or coccyx is identified by radiography. IMPRESSION: No acute fracture within the sacrum or coccyx by radiography. Electronically signed by: Garcia Worrell M.D. 08/18/2019 1:56 PM Dictated: 08/18/19 1355 Transcribed: 08/18/19 135 [place], [place] [phone] XRay Report Patient: ANDIE KAHN Date: 08/18/19 MR#: [id number]: [id number] Acct ID:[id number]: XAVIER VU Date: 1City Zip: [place] [address] Age: 89Location: ED Sex: F Room/Bed: Att Phy:Diagnosis: FALL Odette Phy: The OakesService Date: 08/18/19 Fam Phy:Interpreting Phy: Gacria Worrell MD Admit Phy: Ordering Phy: Joseluis De Leon M.D. cc: ~ XR chest 1V portable CLINICAL HISTORY: Dyspnea COMPARISON STUDY: Chest CT July 24, 2010. Chest radiograph April 30, 2017. FINDINGS: There is no pneumothorax. Small to moderate left and small right pleural effusions are noted. Interstitial thickening has increased. Left basilar opacity is noted. There is mild right basilar opacity. Cardiomediastinal silhouette is stable. Lung volumes are at the lower limits of normal. IMPRESSION: 1. Increase in interstitial thickening. This favors pulmonary edema or less likely an infectious process superimposed upon pulmonary fibrosis. 2. Small to moderate left and small right pleural effusions. Associated bibasilar opacities which favor atelectasis however radiographic follow-up is recommended. Electronically signed by: Garcia Worrell M.D. 08/18/2019 3:15 PM Dictated: 08/18/19 1513 Transcribed: 08/18/19 1513 Code Status & VTE Plan VTE Prophylaxis Plan VTE Prophylaxis will be ordered: Yes PG Care Time/CCT Total # of Minutes Spent Total Time Spent: 55 Total Time Spent with Patient: Total time spent is greater than 50% in coordination of care (as documented) at patient's floor/unit and/or counseling patient: (1) CHF exacerbation Heart failure type: unspecified Qualified Code(s): I50.9 - Heart failure, unspecified (2) Fall Encounter type: initial encounter Qualified Code(s): W19.XXXA - Unspecified fall, initial encounter (3) HTN (hypertension) Hypertension type: essential hypertension Qualified Code(s): I10 - Essential (primary) hypertension (4) DM II (diabetes mellitus, type II), controlled Diabetes mellitus technician terminal and repeater insulin use: without technician terminal and repeater use Diabetes mellitus complication status: without complication Qualified Code(s): E11.9 - Type 2 diabetes mellitus without complications
[2019-08-18] MEDS ORDERED: HydrALAZINE HCL 20 MG/ML VIAL IV PRN (20:46)
[2019-08-18] MEDS: FAMOTIDINE 20 MG TAB PO SCH (20:58)
[2019-08-18] MEDS: DOCUSATE SODIUM 100 MG CAP PO SCH (20:58)
[2019-08-18] MEDS: HEPARIN SOD 5,000 UNIT/0.5 ML VIAL SQ SCH (20:59)
[2019-08-18] MEDS: LATANOPROST 0.005% OP SOLN 2.5 ML BTL OPR SCH (20:59)
[2019-08-18] MEDS ORDERED: REPAGLINIDE 1 MG TAB PO SCH (21:00)
[2019-08-18] MEDS: INSULIN ASPART 100 UNITS/ML 3 ML PEN SC SCH (21:00)
[2019-08-18] MEDS: TRAMADOL HCL 50 MG TABLET PO PRN (21:15)
[2019-08-18] MEDS ORDERED: Nursing to Pharmacy Communication ONE (21:34)
[2019-08-19] MEDS ORDERED: POTASSIUM CHLORIDE 20 MEQ TABCR PO STA (03:22)
[2019-08-19] MEDS ORDERED: MAGNESIUM SULFATE / D5W 1 GM/100 ML BAG IV ONE (03:22)
[2019-08-19] MEDS ORDERED: DIGOXIN 250 MCG in SYRINGE 9 ML IV STA (03:28)
[2019-08-19] MEDS ORDERED: SODIUM CHLORIDE 0.9% 1000ML 250 ML IV ONE (03:32)
[2019-08-19] MEDS: ALBUMIN 25% 50 ML IV SCH ×2 (03:54→04:17)
[2019-08-19 05:50] LABS: Mean Corpuscular Hemoglobin 30.6 pg (25-34); Mean Corpuscular Hgb Conc 31.4 g/dL (32-36); Mean Corpuscular Volume 97.5 fL (80-100); Mean Platelet Volume 9.6 fL (7.4-10.4); Platelet Count 111 K/uL (130-400); RDW Coefficient of Variation 15.1 % (11.5-14.5); RDW Standard Deviation 53.7 fL (36.4-46.3); Red Blood Count 3.59 M/uL (4.2-5.4); White Blood Count 6.22 K/uL (4.8-10.8)
[2019-08-19 06:26] LABS: BUN Creatinine Ratio 13.3 (10-20); Calcium 8.2 mg/dl (8.5-10.1); Creatinine Clr Calc Pharmacy 41.8 ml/min; Est GFR (African American) 75.2; Est GFR (Non-African American) 64.8; Magnesium 1.9 mg/dl (1.8-2.4); Potassium 3.2 mmol/L (3.5-5.1)
[2019-08-19] MEDS ORDERED: glipiZIDE 5 MG TAB PO SCH (09:00)
[2019-08-19] MEDS: INSULIN ASPART 100 UNITS/ML 3 ML PEN SC SCH ×4 (09:41→21:12)
[2019-08-19] MEDS: DOCUSATE SODIUM 100 MG CAP PO SCH ×2 (09:41→21:12)
[2019-08-19] MEDS: HEPARIN SOD 5,000 UNIT/0.5 ML VIAL SQ SCH (09:42)
[2019-08-19] MEDS: PANTOprazole 40 MG TAB PO SCH ×2 (09:42→10:19)
[2019-08-19] MEDS: FAMOTIDINE 20 MG TAB PO SCH ×2 (09:42→10:21)
[2019-08-19] MEDS: LACTOBACILLUS ACIDOPHILUS (FLORANEX) TAB PO SCH ×4 (09:42→16:01)
[2019-08-19] MEDS: FERROUS SULFATE 325 MG TAB PO SCH ×3 (09:42→16:01)
[2019-08-19] MEDS: POTASSIUM CHLORIDE / WTR 10 MEQ/100 ML PLCT IV SCH ×4 (11:00→14:50)
[2019-08-19] MEDS: FUROSEMIDE 40 MG in SYRINGE 0 ML IV SCH (11:00)
[2019-08-19] MEDS ORDERED: INSULIN ASPART 100 UNITS/ML 3 ML PEN SC SCH (12:00)
--- NOTE | 2019-08-19 13:38 | Hospitalist Progress Note ---
Date of Service August 19, 2019 Assessment & Plan (1) CHF exacerbation: CXR showed pulmonary edema. BNP was 4240 (even after 2 doses of Lasix). - Continue Lasix 40mg IV daily - I&Os - Echo pending - Replete K+ as needed (2) Aspiration of food: RN noted significant concerns with any PO intake, including even crushed pills. - ENTERTAINMENT DANCER consult entered (3) Cirrhosis: Hospitalization in 06/2019 for upper GI bleed concerning for variceal bleed. Treated conservatively given age. - Continue PPI - Propranolol was started at prior discharge, but does appear to be on currently. Unclear why, though given her low-normal BP, it is possible she could not tolerate it. - Monitor (4) DM II (diabetes mellitus, type II), controlled: A1c pending. - Hold metformin, Prandin, and glipizide - Sliding scale insulin - Blood sugars good today. (5) Fall: Ground level mechanical fall. No noted injuries. - PT/OT (6) HTN (hypertension): Does not appear to take anything daily for this. - BP normal today. - Monitor (7) Dyslipidemia: Continue atorvastatin. (8) DVT prophylaxis: Given prior hospitalization for upper GI bleed, will forgo heparin. - SCDs Subjective Feels well today. Wants to go home already. Reports no fevers/chills, chest pain, shortness of breath, abdominal pain, nausea, or vomiting. Physical Exam Constitutional: WD/WN, vitals as above Eyes: EOM intact bilaterally; no conjunctival abnormality ENMT: external ear and nose normal, oropharynx normal Neck: trachea midline, no thyromegaly normal visual inspection Respiratory: normal respiratory effort, lungs clear to auscultation no respiratory distress Cardiovascular: RRR, no murmur, no edema Vessels: no JVD Gastrointestinal (Abdomen): Inspection/Auscultation: abdomen normal to inspection; abdomen not distended Musculoskeletal: no cyanosis or clubbing, extremities motor strength 5/5 Skin: no rashes, warm and dry Neurologic: moves all extremities and awake Psychiatric: Orientation: alert, oriented to person and cooperative Results & Data Vital Signs (Past 12 Hours) Vital Signs Temp Pulse Pulse Resp BP Pulse Ox 08/19/19 11:51 36.6 C 84 18 113/94 97 08/19/19 08:30 36.8 C 90 18 143/96 H 98 08/19/19 07:29 113 H 08/19/19 03:44 133 H 08/19/19 03:22 36.2 C L 165 H 20 85/59 L 100 PG Care Time/CCT Total # of Minutes Spent Total Time Spent with Patient: Total time spent is greater than 50% in coordination of care (as documented) at patient's floor/unit and/or counseling patient: (1) CHF exacerbation Heart failure type: unspecified Qualified Code(s): I50.9 - Heart failure, unspecified (2) Fall Encounter type: initial encounter Qualified Code(s): W19.XXXA - Unspecified fall, initial encounter (3) HTN (hypertension) Hypertension type: essential hypertension Qualified Code(s): I10 - Essential (primary) hypertension (4) DM II (diabetes mellitus, type II), controlled Diabetes mellitus local intermodal truck driver insulin use: without local intermodal truck driver use Diabetes mellitus complication status: without complication Qualified Code(s): E11.9 - Type 2 diabetes mellitus without complications (5) Cirrhosis Hepatic cirrhosis type: unspecified hepatic cirrhosis
[2019-08-19] MEDS ORDERED: OCTREOTIDE ACETATE 50 MCG in SYRINGE 9.5 ML IV STA (15:08)
[2019-08-19] MEDS: PANTOprazole 40 MG in SYRINGE 0 ML IV SCH (15:36)
[2019-08-19] MEDS: OCTREOTIDE ACETATE 500 MCG in 0.9 % SODIUM CHLORIDE 100 ML IV SCH (15:52)
[2019-08-19] MEDS: cefTRIAXone SODIUM 1,000 MG in DEXTROSE 5% 50 ML IV SCH (16:00)
[2019-08-19] MEDS: ATORVASTATIN 40 MG TAB PO SCH (16:01)
[2019-08-19] MEDS ORDERED: Nursing to Pharmacy Communication ONE (16:01)
[2019-08-19] MEDS: LATANOPROST 0.005% OP SOLN 2.5 ML BTL OPR SCH (21:13)
[2019-08-19] MEDS: TRAMADOL HCL 50 MG TABLET PO PRN (23:44)
[2019-08-20] MEDS: OCTREOTIDE ACETATE 500 MCG in 0.9 % SODIUM CHLORIDE 100 ML IV SCH ×3 (00:05→21:12)
[2019-08-20 06:21] LABS: Hematocrit (blood only) 33.4 % (37-47); Hemoglobin 10.6 g/dL (12.0-16.0); Mean Corpuscular Hgb Conc 31.7 g/dL (32-36); Mean Corpuscular Volume 97.7 fL (80-100); RDW Coefficient of Variation 15.2 % (11.5-14.5); RDW Standard Deviation 54.2 fL (36.4-46.3); Red Blood Count 3.42 M/uL (4.2-5.4); White Blood Count 5.98 K/uL (4.8-10.8)
[2019-08-20 06:30] LABS: Mean Platelet Volume 9.6 fL (7.4-10.4); Platelet Count 98 K/uL (130-400)
[2019-08-20 06:46] LABS: Estimated Average Glucose 140 mg/dl; Hemoglobin A1C 6.5 % (4.5-5.6)
[2019-08-20 06:53] LABS: BUN Creatinine Ratio 10.9 (10-20); Calcium 7.7 mg/dl (8.5-10.1); Est GFR (African American) 69.9; Est GFR (Non-African American) 60.3; Potassium 3.6 mmol/L (3.5-5.1)
[2019-08-20] MEDS: DOCUSATE SODIUM 100 MG CAP PO SCH ×2 (08:44→20:58)
[2019-08-20] MEDS: LACTOBACILLUS ACIDOPHILUS (FLORANEX) TAB PO SCH ×3 (08:45→17:31)
[2019-08-20] MEDS: FERROUS SULFATE 325 MG TAB PO SCH ×2 (08:45→17:31)
[2019-08-20] MEDS: FUROSEMIDE 40 MG in SYRINGE 0 ML IV SCH (08:46)
[2019-08-20] MEDS: PANTOprazole 40 MG in SYRINGE 0 ML IV SCH ×2 (08:46→20:58)
[2019-08-20] MEDS: INSULIN ASPART 100 UNITS/ML 3 ML PEN SC SCH ×4 (08:48→20:58)
[2019-08-20] MEDS: cefTRIAXone SODIUM 1,000 MG in DEXTROSE 5% 50 ML IV SCH (15:55)
--- NOTE | 2019-08-20 16:59 | Consultation Report ---
DATE OF CONSULTATION: 08/20/2019 REASON FOR EVALUATION: Melena with anemia. HISTORY OF PRESENT ILLNESS: The patient is an 89-year-old hospitalized in June with GI bleeding and seen by the [facility]. At that time she was noted to have cirrhosis, probably from steatohepatitis from metabolic syndrome. She had bleeding while on blood thinners at that time and it was felt that due to her comorbidities that no endoscopic intervention would be taken at that time. She stabilized and was discharged, but presented back to the hospital on the after falling in the shower on to her buttocks. She was unable to get up on her own and was short of breath. There was a suggestion that she might have congestive heart failure on her chest x-ray and she was given Lasix and subsequently admitted. Since hospitalization, she had a cardiac echo that showed that she does not have congestive heart failure, but her hemoglobin has dropped from 14 to 11 and she has had some melena today while on heparin for rapid atrial fibrillation. The heparin has been stopped and she has been started on octreotide and stabilized. She is in the intensive care unit. I spoke to her son who confirmed that aggressive measures were not to be taken endoscopically that she is a DNR, but that she could receive blood if needed. PAST MEDICAL HISTORY: Remarkable for diabetes, hyperlipidemia, hypertension, obesity, acid reflux, cirrhosis, osteoarthritis. She has had a carotid endarterectomy, cataract removal and hysterectomy. MEDICATIONS: Per list. ALLERGIES: ASPIRIN AND SALMON OIL. FAMILY HISTORY: Noncontributory. SOCIAL HISTORY: The patient is a , lives at the [facility]. Former smoker, does not use any alcohol. PHYSICAL EXAMINATION: GENERAL: The patient is lying in bed in a position and stating that she is cold. VITAL SIGNS: Blood pressure is 124/55, pulse 94, respirations 20, temperature is 36.8, O2 saturation on 1 liter is 95%. EXTREMITIES: Ankles show trace edema with some venous stasis. ABDOMEN: Distended. There is no tenderness. NEUROLOGIC: Shows the patient to be somewhat confused with poor memory. IMPRESSION: The patient has anemia and melena, most likely from bleeding, esophageal or gastric varices, aggressive endoscopic intervention has been declined by the family as they feel this would be the patient's wishes. She is DNR, but she can receive blood per the patient's son who is an EMT and speaks for her. At this point, I would continue the octreotide and hold on the blood thinners and hopefully she will not have any more bleeding. We will continue to follow the patient. RUPINDER
[2019-08-20] MEDS: ATORVASTATIN 40 MG TAB PO SCH (17:31)
[2019-08-20] MEDS: LATANOPROST 0.005% OP SOLN 2.5 ML BTL OPR SCH (21:00)
--- NOTE | 2019-08-20 21:55 | Hospitalist Progress Note ---
Date of Service August 20, 2019 Assessment & Plan (1) CHF exacerbation: Acute dastolic heart failure CXR showed pulmonary edema. BNP was 4240 (even after 2 doses of Lasix). - Continue Lasix 40mg IV daily - I&Os - Echo shows normal EF, no wall motion abnormalities (2) Acute upper GI bleed: Family is not interested in escalation of care, no intervention. Gastro involved. will monitor hemoglobin. (3) Aspiration of food: RN noted significant concerns with any PO intake, including even crushed pills. - SUPERVISOR MAILS consult entered (4) Cirrhosis: Hospitalization in 06/2019 for upper GI bleed concerning for variceal bleed. Treated conservatively given age. -Cause has not been documented in chart, but it appears that it was likely MCKEON. - Continue PPI - Propranolol was started at prior discharge, but does appear to be on currently. Unclear why, though given her low-normal BP, it is possible she could not tolerate it. - Monitor (5) DM II (diabetes mellitus, type II), controlled: A1c 6.5. - Hold metformin, Prandin, and glipizide - Sliding scale insulin - Blood sugars are good. (6) Fall: Ground level mechanical fall. No noted injuries. - PT/OT (7) HTN (hypertension): Does not appear to take anything daily for this. - BP normal today. - Monitor (8) Dyslipidemia: Continue atorvastatin. (9) DVT prophylaxis: Given prior hospitalization for upper GI bleed, will forgo heparin. - SCDs Subjective patient is a poor historian. She wants to be discharged. D/W nurse, she has been setting her bed alarm off thorighout the day. Review of Systems Review of Systems: Unobtainable due to mental health condition Physical Exam Physical Exam: Constitutional: WD/WN, vitals as above Eyes: EOM intact bilaterally; no conjunctival abnormality ENMT: external ear and nose normal, oropharynx normal Neck: trachea midline, no thyromegaly normal visual inspection Respiratory: normal respiratory effort, lungs clear to auscultation no respiratory distress Cardiovascular: RRR, no murmur, no edema Vessels: no JVD Gastrointestinal (Abdomen): Inspection/Auscultation: abdomen normal to inspection; abdomen not distended Musculoskeletal: no cyanosis or clubbing, extremities motor strength 5/5 Skin: no rashes, warm and dry Neurologic: moves all extremities and awake Psychiatric: Orientation: alert, oriented to person. Results & Data Vital Signs (Past 12 Hours) Vital Signs Temp Pulse Resp BP Pulse Ox 08/20/19 19:23 37.5 C 87 16 116/57 L 95 08/20/19 15:21 36.8 C 94 H 20 124/55 L 95 08/20/19 10:46 36.8 C 82 18 109/52 L 90 PG Care Time/CCT Total # of Minutes Spent Total Time Spent with Patient: Total time spent is greater than 50% in coordination of care (as documented) at patient's floor/unit and/or counseling patient: (1) CHF exacerbation Heart failure type: unspecified Qualified Code(s): I50.9 - Heart failure, unspecified (2) Cirrhosis Hepatic cirrhosis type: unspecified hepatic cirrhosis (3) DM II (diabetes mellitus, type II), controlled Diabetes mellitus complication status: without complication Diabetes mellitus shelter insulin use: without shelter use Qualified Code(s): E11.9 - Type 2 diabetes mellitus without complications (4) HTN (hypertension) Hypertension type: essential hypertension Qualified Code(s): I10 - Essential (primary) hypertension (5) Fall Encounter type: initial encounter Qualified Code(s): W19.XXXA - Unspecified fall, initial encounter
[2019-08-21] MEDS ORDERED: POTASSIUM CHLORIDE 20 MEQ TABCR PO STA (03:45)
[2019-08-21] MEDS: POTASSIUM CHLORIDE / WTR 10 MEQ/100 ML PLCT IV SCH ×2 (04:03→05:01)
[2019-08-21 06:25] LABS: BUN Creatinine Ratio 17.1 (10-20); Calcium 7.7 mg/dl (8.5-10.1); Creatinine Clr Calc Pharmacy 39.1 ml/min; Est GFR (Non-African American) 58.7; Potassium 4.4 mmol/L (3.5-5.1)
[2019-08-21 06:48] LABS: Hematocrit (blood only) 36.6 % (37-47); Hemoglobin 10.9 g/dL (12.0-16.0); Mean Corpuscular Hemoglobin 30.3 pg (25-34); Mean Corpuscular Hgb Conc 29.8 g/dL (32-36); Mean Corpuscular Volume 101.7 fL (80-100); Platelet Count 104 K/uL (130-400); White Blood Count 6.48 K/uL (4.8-10.8)
[2019-08-21] MEDS: LACTOBACILLUS ACIDOPHILUS (FLORANEX) TAB PO SCH ×3 (07:51→16:44)
[2019-08-21] MEDS: FERROUS SULFATE 325 MG TAB PO SCH ×2 (07:51→16:44)
[2019-08-21] MEDS: PANTOprazole 40 MG in SYRINGE 0 ML IV SCH ×2 (07:51→19:52)
[2019-08-21] MEDS: DOCUSATE SODIUM 100 MG CAP PO SCH ×2 (07:51→19:51)
[2019-08-21] MEDS: FUROSEMIDE 40 MG in SYRINGE 0 ML IV SCH (07:52)
[2019-08-21] MEDS: OCTREOTIDE ACETATE 500 MCG in 0.9 % SODIUM CHLORIDE 100 ML IV SCH ×2 (07:55→16:43)
[2019-08-21] MEDS: INSULIN ASPART 100 UNITS/ML 3 ML PEN SC SCH ×4 (08:00→20:24)
[2019-08-21] MEDS: ATORVASTATIN 40 MG TAB PO SCH (16:44)
[2019-08-21] MEDS: cefTRIAXone SODIUM 1,000 MG in DEXTROSE 5% 50 ML IV SCH (16:44)
--- NOTE | 2019-08-21 16:56 | Progress Note ---
DATE: 08/21/2019 SUBJECTIVE: The patient is more alert today, is complaining of being hungry. She has had no vomiting of blood and had a brown-colored bowel movement earlier today according to the nurse. Her hemoglobin has remained stable at 10.9, on octreotide. PHYSICAL EXAMINATION: VITAL SIGNS: Blood pressure is 139/66, pulse 87. ABDOMEN: Somewhat distended without palpable mass. IMPRESSION: The patient has had gastrointestinal bleeding, probably from esophageal varices, which appeared to have stopped. At this point, I think we can probably try stopping the octreotide tomorrow morning to see how she does. If she remains stable, then hopefully we can discharge her within 24 hours after stopping the octreotide.
--- NOTE | 2019-08-21 19:11 | Hospitalist Progress Note ---
Date of Service August 21, 2019 Assessment & Plan (1) Acute upper GI bleed: Suspected to be variceal in etiology. Remains on octreotide drip. Remains on IV PPI. GI following. If H/H remain stable overnight then d/c octreotide in am. Cont rocephin for SBP prophylaxis. 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 Advanced based on imaging from earlier this year, varices, fluid overload, etc. (3) Acute respiratory failure with hypoxia: 2nd volume overload in setting of decompensated cirrhosis (+/- diastolic CHF). Diurese. Supportive care. (4) Volume overload: 2nd decompensated cirrhosis +/- acute diastolic CHF. Cont IV lasix daily. (5) Pulmonary edema: Volume overload in setting of cirrhosis +/- diastolic CHF. Diurese. O2. (6) Thrombocytopenia: 2nd cirrhosis. Follow. (7) Anemia: Likely due to cirrhosis and acute blood loss anemia from upper GI bleeding. H/H now stable for 48 hours. CBC am. (8) DM II (diabetes mellitus, type II), controlled: add lantus 12 units daily. adjust novolog SSI. (9) HTN (hypertension): (10) Fall: at time of presentation no apparent injuries (11) Hyponatremia: 2nd lasix in setting of volume overload BMP am (12) Acute blood loss anemia: 2nd upper GI bleeding stable H/H x 48 hours repeat CBC am (13) Chronic kidney disease, stage 3a: creatinine stable (14) Encephalopathy: underlying cognitive impairment? high ammonia levels? other? check ammonia level am (15) DVT prophylaxis: SCDs spoke with pt's son this evening by phone he agrees with hospice at discharge understands her diagnoses and the poor prognosis with the cirrhosis dispo - back to [facility] w/ hospice Subjective patient sleeping upon my arrival. awakens easily. she was confused; could not tell me the year. did tell me her son's name and that he is a supervisor carbon paper coating. her food tray was in front of her and she ate little for lunch. staff confirm she has been confused. no savanah GI bleeding. tele stable overnight. Review of Systems Review of Systems: Unobtainable due to cognitive status Physical Exam Constitutional: + cachectic (facial muscle/ temporal muscle wasting), + altered mental status and + frail appearing; no acute distress ENMT: external ear and nose normal, oropharynx normal Respiratory: Auscultation: + diminished lung sounds (bases) Cardiovascular: Rate/Rhythm: regular rate and regular rhythm Heart Sounds: normal S1 and normal S2 Vessels: posterior tibial pulses present and dorsalis pedis pulses present Extremities: + edema (2+ b/l ) Gastrointestinal (Abdomen): Inspection/Auscultation: + abdomen distended (with ascites) and normal bowel sounds Percussion/Palpation: abdomen nontender Skin: venous stasis changes b/l legs Psychiatric: Orientation: alert and oriented to person; + not oriented to place and + not oriented to time Results & Data Vital Signs (Past 12 Hours) Vital Signs Temp Pulse Pulse Resp BP Pulse Ox 08/21/19 19:04 36.9 C 92 H 16 110/54 L 96 08/21/19 16:00 103 H 08/21/19 15:19 36.7 C 87 16 139/66 99 08/21/19 11:11 36.9 C 89 18 138/58 L 98 08/21/19 08:00 92 H 08/21/19 07:13 36.8 C 96 H 21 126/65 94 Laboratory Results Laboratory Results - last 24 hr 08/21/19 08/21/19 08/21/19 05:25 05:25 07:12 WBC 6.48 RBC 3.60 L Hgb 10.9 L Hct 36.6 L MCV 101.7 H MCH 30.3 MCHC 29.8 L Plt Count 104 L Sodium 133 L Potassium 4.4 D Chloride 99 Carbon Dioxide 27 Anion Gap 7.0 BUN 15 D Creatinine 0.88 Est Cr Clr Drug Dosing 39.1 Est GFR ( Amer) 68.0 Est GFR (Non-Af Amer) 58.7 BUN/Creatinine Ratio 17.1 Glucose 214 H POC Glucose 201 H Calcium 7.7 L 08/21/19 08/21/19 08/21/19 11:09 16:14 16:17 WBC RBC Hgb Hct MCV MCH MCHC Plt Count Sodium Potassium Chloride Carbon Dioxide Anion Gap BUN Creatinine Est Cr Clr Drug Dosing Est GFR ( Amer) Est GFR (Non-Af Amer) BUN/Creatinine Ratio Glucose POC Glucose 189 H 322 H* 315 H* Calcium 08/21/19 20:05 WBC RBC Hgb Hct MCV MCH MCHC Plt Count Sodium Potassium Chloride Carbon Dioxide Anion Gap BUN Creatinine Est Cr Clr Drug Dosing Est GFR ( Amer) Est GFR (Non-Af Amer) BUN/Creatinine Ratio Glucose POC Glucose 258 H Calcium PG Care Time/CCT Total # of Minutes Spent Total Time Spent with Patient: Total time spent is greater than 50% in coordination of care (as documented) at patient's floor/unit and/or counseling patient: (1) Volume overload Hypervolemia type: unspecified Qualified Code(s): E87.70 - Fluid overload, unspecified (2) Pulmonary edema Chronicity: acute Qualified Code(s): J81.0 - Acute pulmonary edema (3) Cirrhosis Hepatic cirrhosis type: other cirrhosis Qualified Code(s): K74.69 - Other cirrhosis of liver (4) Anemia Anemia type: unspecified type Qualified Code(s): D64.9 - Anemia, unspecified (5) DM II (diabetes mellitus, type II), controlled 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
[2019-08-21] MEDS: LATANOPROST 0.005% OP SOLN 2.5 ML BTL OPR SCH (19:52)
[2019-08-21] MEDS ORDERED: INSULIN GLARGINE SOLOSTAR 100 UNITS/ML 3 ML PEN SC SCH (21:00)
[2019-08-22] MEDS: OCTREOTIDE ACETATE 500 MCG in 0.9 % SODIUM CHLORIDE 100 ML IV SCH (01:48)
[2019-08-22 06:38] LABS: Hematocrit (blood only) 34.1 % (37-47); Hemoglobin 10.9 g/dL (12.0-16.0); Mean Corpuscular Hemoglobin 31.3 pg (25-34); Mean Platelet Volume 10.2 fL (7.4-10.4); Platelet Count 106 K/uL (130-400); RDW Coefficient of Variation 15.2 % (11.5-14.5); RDW Standard Deviation 54.2 fL (36.4-46.3); Red Blood Count 3.48 M/uL (4.2-5.4); White Blood Count 7.37 K/uL (4.8-10.8)
[2019-08-22 07:21] LABS: BUN Creatinine Ratio 19.7 (10-20); Calcium 7.5 mg/dl (8.5-10.1); Creatinine Clr Calc Pharmacy 42.1 ml/min; Est GFR (African American) 75.2; Est GFR (Non-African American) 64.8; Magnesium 1.3 mg/dl (1.8-2.4); Potassium 3.3 mmol/L (3.5-5.1)
[2019-08-22] MEDS: DOCUSATE SODIUM 100 MG CAP PO SCH (09:32)
[2019-08-22] MEDS: FERROUS SULFATE 325 MG TAB PO SCH ×2 (09:32→16:37)
[2019-08-22] MEDS: INSULIN ASPART 100 UNITS/ML 3 ML PEN SC SCH ×4 (09:32→20:43)
[2019-08-22] MEDS: LACTOBACILLUS ACIDOPHILUS (FLORANEX) TAB PO SCH ×3 (09:32→16:37)
[2019-08-22] MEDS: POTASSIUM CHLORIDE 20 MEQ TABCR PO SCH ×3 (09:33→20:42)
[2019-08-22] MEDS: MAGNESIUM SULFATE / D5W 1 GM/100 ML BAG IV SCH ×2 (09:58→10:50)
[2019-08-22] MEDS: LANSOPRAZOLE 30 MG SOLTAB PO SCH ×2 (09:58→20:41)
[2019-08-22] MEDS: FUROSEMIDE 40 MG in SYRINGE 0 ML IV SCH (10:50)
--- NOTE | 2019-08-22 12:54 | Progress Note ---
DATE: 08/22/2019 SUBJECTIVE: The patient appears to be a little bit more alert today and is eating pureed diet. Her octreotide was stopped earlier today and her hemoglobin has remained stable at 10.9. She did have a darker bowel movement today, but no savanah blood. No nausea or vomiting. PHYSICAL EXAMINATION: VITAL SIGNS: Blood pressure is 165/74, pulse 87. ABDOMEN: Somewhat distended. IMPRESSION: The patient has not had any further active bleeding since discontinuing the octreotide and her hemoglobin has remained stable. At this point, I think we have reached maximum benefit from a gastrointestinal standpoint within the limits of what we are able to do. We will await care managers' decision about returning to [facility].
[2019-08-22] MEDS: ATORVASTATIN 40 MG TAB PO SCH (16:37)
--- NOTE | 2019-08-22 19:21 | Hospitalist Progress Note ---
Date of Service August 22, 2019 Assessment & Plan (1) Acute upper GI bleed: Suspected to be variceal in etiology. Resolved. H/H stable. STOP octreotide drip. Convert IV PPI to PO twice daily. d/c rocephin for SBP proph. 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 Advanced based on imaging from earlier this year, varices, fluid overload, etc. Mild ammonia elevation but no asterixis. Would not place on lactulose at this time. (3) Acute respiratory failure with hypoxia: 2nd volume overload in setting of decompensated cirrhosis (+/- diastolic CHF). Improved. Stop IV lasix. Supportive care. Leave O2 for palliative purposes. (4) Volume overload: 2nd decompensated cirrhosis +/- acute diastolic CHF. Stop IV lasix daily. Overall this is improved. (5) Pulmonary edema: Volume overload in setting of cirrhosis +/- diastolic CHF. Improved. Stop IV lasix today. (6) Thrombocytopenia: 2nd cirrhosis. (7) Anemia: Likely due to cirrhosis and acute blood loss anemia from upper GI bleeding. H/H stable for 3 days Repeat h/h in am (8) DM II (diabetes mellitus, type II), controlled: basal-bolus insulin reasonable control in light of advanced age, etc (9) HTN (hypertension): BPs wnl (10) Fall: at time of presentation no apparent injuries (11) Hyponatremia: 2nd lasix in setting of volume overload Na acceptable (12) Acute blood loss anemia: 2nd upper GI bleeding stable H/H x 72 hours repeat H/H am (13) Chronic kidney disease, stage 3a: creatinine stable (14) Encephalopathy: underlying cognitive impairment? due to mild hyperammonemia? consider rifaximin or lactulose (15) DVT prophylaxis: SCDs spoke with pt's son this evening by phone once again he is still in agreement with back to [facility] w/ hospice tomorrow d/c tele move to med/surg Subjective no issues overnight. tele stable. no overt GI bleeding/melena. per staff pt sat in chair for some of the day. eating ok. during my visit she was resting. offered no complaints. Review of Systems Constitutional: + fatigue Respiratory: no dyspnea Cardiovascular: no chest pain Gastrointestinal: no abdominal pain Physical Exam Constitutional: + cachectic (facial muscle/ temporal muscle wasting), + altered mental status (mild) and + frail appearing; no acute distress ENMT: external ear and nose normal, oropharynx normal Respiratory: Auscultation: + diminished lung sounds (bases) Cardiovascular: Rate/Rhythm: regular rate and regular rhythm Heart Sounds: normal S1 and normal S2 Vessels: posterior tibial pulses present and dorsalis pedis pulses present Extremities: + edema (1+ b/l ) Gastrointestinal (Abdomen): Inspection/Auscultation: + abdomen distended (with ascites) and normal bowel sounds Percussion/Palpation: abdomen nontender Skin: LEFT lateral ankle malleolus - ulceration with foul-smelling, purulent material Psychiatric: Orientation: alert, oriented to person and oriented to place; + not oriented to time Results & Data Vital Signs (Past 12 Hours) Vital Signs Temp Pulse Pulse Resp BP Pulse Ox 08/22/19 11:25 36.7 C 87 17 165/74 H 98 08/22/19 08:00 82 08/22/19 07:21 36.4 C L 83 18 126/72 97 Laboratory Results Laboratory Results - last 24 hr 08/21/19 08/22/19 08/22/19 20:05 06:26 06:26 WBC 7.37 RBC 3.48 L Hgb 10.9 L Hct 34.1 L MCV 98.0 MCH 31.3 MCHC 32.0 RDW Std Deviation 54.2 H RDW Coeff of Jami 15.2 H Plt Count 106 L MPV 10.2 Sodium 135 L Potassium 3.3 L D Chloride 101 Carbon Dioxide 32 Anion Gap 3.0 BUN 16 Creatinine 0.81 Est Cr Clr Drug Dosing 42.1 Est GFR ( Amer) 75.2 Est GFR (Non-Af Amer) 64.8 BUN/Creatinine Ratio 19.7 Glucose 48 L* POC Glucose 258 H Calcium 7.5 L Magnesium 1.3 L Ammonia 08/22/19 08/22/19 08/22/19 06:29 07:22 07:42 WBC RBC Hgb Hct MCV MCH MCHC RDW Std Deviation RDW Coeff of Jami Plt Count MPV Sodium Potassium Chloride Carbon Dioxide Anion Gap BUN Creatinine Est Cr Clr Drug Dosing Est GFR ( Amer) Est GFR (Non-Af Amer) BUN/Creatinine Ratio Glucose POC Glucose 49 L* 66 L* Calcium Magnesium Ammonia 52.2 H 08/22/19 08/22/19 11:22 16:00 WBC RBC Hgb Hct MCV MCH MCHC RDW Std Deviation RDW Coeff of Jami Plt Count MPV Sodium Potassium Chloride Carbon Dioxide Anion Gap BUN Creatinine Est Cr Clr Drug Dosing Est GFR ( Amer) Est GFR (Non-Af Amer) BUN/Creatinine Ratio Glucose POC Glucose 179 H 225 H Calcium Magnesium Ammonia PG Care Time/CCT Total # of Minutes Spent Total Time Spent with Patient: Total time spent is greater than 50% in coordination of care (as documented) at patient's floor/unit and/or counseling patient: (1) Anemia Anemia type: unspecified type Qualified Code(s): D64.9 - Anemia, unspecified (2) Cirrhosis Hepatic cirrhosis type: other cirrhosis Qualified Code(s): K74.69 - Other cirrhosis of liver (3) Pulmonary edema Chronicity: acute Qualified Code(s): J81.0 - Acute pulmonary edema (4) DM II (diabetes mellitus, type II), controlled Diabetes mellitus complication status: without complication 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
[2019-08-22] MEDS: CEFDINIR 300 MG CAP PO SCH (20:41)
[2019-08-22] MEDS: LATANOPROST 0.005% OP SOLN 2.5 ML BTL OPR SCH (20:42)
[2019-08-22] MEDS ORDERED: INSULIN GLARGINE SOLOSTAR 100 UNITS/ML 3 ML PEN SC SCH (21:00)
[2019-08-23] MEDS: ACETAMINOPHEN 325 MG TAB PO PRN ×2 (04:02→12:27)
[2019-08-23 06:05] LABS: Hematocrit (blood only) 34.7 % (37-47); Hemoglobin 10.7 g/dL (12.0-16.0)
[2019-08-23 06:38] LABS: BUN Creatinine Ratio 20.7 (10-20); Calcium 7.5 mg/dl (8.5-10.1); Est GFR (African American) 81.2; Magnesium 1.7 mg/dl (1.8-2.4); Potassium 3.5 mmol/L (3.5-5.1)
[2019-08-23 07:34] VITALS: TEMP 97.9; O2SAT 99
[2019-08-23] MEDS: LACTOBACILLUS ACIDOPHILUS (FLORANEX) TAB PO SCH ×2 (08:27→12:29)
[2019-08-23] MEDS: POTASSIUM CHLORIDE 20 MEQ TABCR PO SCH (08:28)
[2019-08-23] MEDS: CEFDINIR 300 MG CAP PO SCH (08:28)
[2019-08-23] MEDS: LANSOPRAZOLE 30 MG SOLTAB PO SCH (08:29)
[2019-08-23] MEDS: INSULIN ASPART 100 UNITS/ML 3 ML PEN SC SCH ×2 (08:39→12:35)
--- NOTE | 2019-08-23 11:06 | Discharge Summary ---
Date of Service August 23, 2019 Admission HPI Per Admitting Provider 89 y/o female presented to the ED after a ground level fall where she slipped and fell onto her buttocks in the shower. She was not able to get up on her own. She did not lose consciousness. No back pain, head pain, neck pain or hip pain reported. No chest pain, SOB, cough, F/C, or N/V/D. She has felt diffuse weakness over the past day. In the ED she appeared to have signs of CHF on CXR. She was given 40mg of IV Lasix in the ED. Principal Diagnosis upper GI bleeding Discharge Exam Constitutional + cachectic (facial muscle/ temporal muscle wasting), + altered mental status (mild) and + frail appearing; no acute distress ENMT external ear and nose normal, oropharynx normal Respiratory Auscultation: + diminished lung sounds (bases) Cardiovascular Rate/Rhythm: regular rate and regular rhythm Heart Sounds: normal S1 and normal S2 Vessels: posterior tibial pulses present and dorsalis pedis pulses present Extremities: + edema (1+ b/l ) Gastrointestinal (Abdomen) Inspection/Auscultation: + abdomen distended (with ascites - mild ) and normal bowel sounds Percussion/Palpation: abdomen nontender Psychiatric Orientation: alert, oriented to person and oriented to place; + not oriented to time Discharge Data Allergies Allergy/AdvReac Type Severity Reaction Status Date / Time aspirin Allergy Severe THROAT Verified 08/18/19 11:45 SWELLS salmon oil Allergy Unknown Swelling Verified 08/18/19 11:45 of Lip/Tongue/Throat Consultations [facility] PT, OT, speech therapy Hospital Course (1) Acute upper GI bleed: Suspected to be variceal in etiology. Resolved. Latter half of stay - no melena stools and H/H remained stable. Discharge Hb was 10.7. Received octreotide drip and IV PPI during her GI bleed along with prophylactic IV rocephin. Seen by [facility] GI - EGD deferred. Octreotide was d/c after 3 days. Ultimately converted IV PPI over to oral PPI. Diet was resumed and advanced; tolerated such without GI intolerance. Will take PPI twice daily at discharge. 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 Advanced based on imaging from earlier this year, varices, fluid overload, etc. Mild ammonia elevation but no asterixis. Would not place on lactulose at this time as she is transitioning to hospice. (3) Acute respiratory failure with hypoxia: 2nd volume overload in setting of decompensated cirrhosis (+/- diastolic CHF). Improved s/p IV lasix for several days. Discharging on NC O2 for palliative purposes. (4) Volume overload: 2nd decompensated cirrhosis +/- acute diastolic CHF. Received IV lasix for several days. Transitioned to oral lasix at discharge to prevent fluid reaccumulation and to prevent dyspnea. (5) Pulmonary edema: Volume overload in setting of cirrhosis +/- diastolic CHF. Improved/resolved by time of discharge. (6) Thrombocytopenia: 2nd cirrhosis. (7) Anemia: Likely due to cirrhosis and acute blood loss anemia from upper GI bleeding. H/H stable for 3 days prior to discharge. Discharge Hb 10.7. (8) DM II (diabetes mellitus, type II), controlled: received basal-bolus insulin while hospitalized but was transitioned back to oral meds at discharge. (9) HTN (hypertension): BPs wnl while hospitalized (10) Fall: at time of presentation no apparent injuries (11) Hyponatremia: 2nd lasix in setting of volume overload Na acceptable at discharge (135) (12) Acute blood loss anemia: 2nd upper GI bleeding stable H/H x 72 hours prior to discharge (13) Chronic kidney disease, stage 3a: creatinine stable during the hospitalization (14) Encephalopathy: underlying cognitive impairment? due to mild hyperammonemia? (15) Hospice care patient: In light of advanced age, failure to thrive, and significant cirrhosis her son elected to transition his mother to hospice at time of discharge. She is returning to her personal f[facility] with hospice in place. Total Time Total Time Spent Total Time Spent (In Minutes): 40 Total Time Includes: Examination of the Patient, Discharge Planning and Medication Reconciliation Discharge Plan Discharge Items Patient Disposition: [facility] Reason For Visit: Cirrhosis, WEAKNESS, FALL Discharge Diagnosis: 1. advanced cirrhosis 2. weakness due to #1 3. falls 4. failure to thrive 5. transitioning to hospice Condition on Discharge: Good Activity: As commented below Activity Comment: bedrest or out of bed to chair/commode, as tolerated (or as desired) Non-emergency contact: Primary Care Provider Call non-emergency contact if: you have any medication questions, your symptoms worsen, your pain is not controlled and your pain is worsening Follow-up/Referrals: MIRELLA, [Primary Care Provider] - Diet: Carb Consistent or DM2 Diet Texture: Pureed (blended smooth) Addtl Attending Provider Instructions: Ms Menjivar has advanced cirrhosis. This has led to weakness, falls, lethargy, and worsening fluid in her abdomen and legs. She is transitioning to hospice at time of discharge back to the [facility]. Recommendations - 1. NC O2 - 2 L continuously for comfort. Adjust as needed for optimal comfort. 2. Left lateral ankle wound - aquacel silver then covered with optifoam; change every 48 hours. Optifoams to pino wounds - change every 48 hours and as needed. 3. pain/shortness of breath/air hunger - roxanol 5mg every 6 hours as needed. 4. nausea/vomiting - zofran 4mg ODT every 6 hours as needed. 5. agitation/anxiety/sleep - ativan 0.5mg SL every 6 hours as needed. 6. pureed, diabetic diet as tolerated. 7. no need to continue checking blood sugars at this time UNLESS patient desires or clinically indicated. 8. since patient is on hospice please focus on comfort, pain control, etc. Please do NOT transfer back to hospital unless comfort cannot be achieved. 9. For any questions, concerns, problems, needs - call [facility]. Pending Studies at Discharge: No Stand-Alone Forms: My [employer], Smoking Cessation Skilled Items Patient informed of condition?: Yes DNR: Yes Discharge Level of Care: Other Communicable Disease: No Discharge Prognosis: Deteriorating Lines: None Urinary Catheter: No Medications and DC Order Prescriptions: New cefdinir 300 mg Capsule 300 mg PO BID 6 Days Qty: 12 RF: 0 lansoprazole [Prevacid SoluTab] 30 mg Tablet,Disintegrat, Delay Rel 30 mg PO BID Qty: 60 RF: 2 morphine concentrate 100 mg/5 mL (20 mg/mL) solution 5 mg PO Q6H PRN (Reason: pain, shortness of breath, air hunger) Qty: 30 RF: 0 ondansetron 4 mg tablet,disintegrating 4 mg PO Q6H PRN (Reason: nausea and vomiting) Qty: 14 RF: 0 lorazepam [Ativan] 0.5 mg tablet 0.5 mg SL Q6H PRN (Reason: anxiety, sleep, agitation) Qty: 14 RF: 0 furosemide [Lasix] 20 mg tablet 20 mg PO QAM Qty: 30 RF: 2 Continued repaglinide [Prandin] 1 mg Tablet 1 mg PO TID RF: 0 latanoprost 0.005 % Drops 1 drp OPR HS RF: 0 acetaminophen [Tylenol] 325 mg Tablet 650 mg PO Q4H PRN (Reason: Pain) RF: 0 metformin 1,000 mg Tablet 1,000 mg PO BID RF: 0 Discontinued pantoprazole [Protonix] 40 mg tablet,delayed release (DR/EC) 40 mg PO DAILY Qty: 30 RF: 0 famotidine 20 mg Tablet 20 mg PO BID RF: 0 atorvastatin [Lipitor] 40 mg Tablet 40 mg PO DAILY RF: 0 glipizide 10 mg Tablet Extended Release 24hr 10 mg PO DAILY RF: 0 ferrous sulfate 325 mg (65 mg iron) Tablet 325 mg PO BIDM RF: 0 docusate sodium [Colace] 100 mg Capsule 100 mg PO BID RF: 0 Lactobacillus acidophilus [Acidophilus] Capsule 2 cap PO TIDM RF: 0 Therems-M 27-0.4 mg Tablet 1 tab PO DAILY RF: 0 Discharge Orders: Discharge Order (Routine); Ordered 08/23/19 Ordered By: Douglas Aguilar Admission Data Admit Date/Time: 08/18/19 17:43 Attending Provider: Douglas Aguilar Admit Provider: Florin Friedman Primary Care Provider: John VU Providers: Armin Bradshaw ; [facility] ; Florin Friedman ; Dejuan Vásquez Other Interventions: Discharge Summary Assessment (RN) Last Done: 08/23/19 11:56 DC Date/Time DO NOT enter until pt leaves facility: 08/23/19 14:10
[2019-08-23 11:59] VITALS: BP 93/54; PULSE 16
--- NOTE | 2019-08-30 13:26 | Coding Query ---
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 Please assist us with the question(s) below: Please place an X within the parenthesis (x). The following diagnosis listed in this patient's medical record require physician assistance to determine if they were present on admission (POA) or not. Please advise for each diagnosis whether it was present on admission, not present on admission, or if it was clinically undetermined. 1. Acute upper GI bleed: Suspected to be variceal in etiology. (documentation begins on 08/19/19) ( ) Present On Admission (x ) Not Present On Admission ( ) Clinically Undetermined started afternoon of hospital day #2 thanks Douglas Thank you Madeline Pope *Definition of the present on admission (POA)-Present on admission is defined as present at the time the order for inpatient admission occurs. Conditions that develop during an outpatient encounter prior to a written order for inpatient admission (including emergency department, observation, or outpatient surgery) are considered present on admission. RUPINDER
== END 2019-08-23 14:10 | disposition hospice, home (50) | DRG 432 ==
LOC: ED 11:21 → 2E 17:43 → SUATTDRO 17:43 → 2E 18:42 → 4W 08-22 15:35